=== PATIENT | female | born 1950 | race Caucasian/White ===

== ENCOUNTER 2017-02-17 08:31 | Day surgery (SDC) | payer MEDICARE ==
[2017-02-10 11:37] VITALS: BMI 27.8
[~2017-02-17 08:31] MED LIST: DEXAMETHASONE SOD PHOSPHATE 10 MG/ML 1 ML VIAL IV ONE; HEPARIN SODIUM,PORCINE 5,000 UNIT/ML 1 ML VIAL SQ ONE; LACTATED RINGERS 1,000 ML IV SCH; MIDAZOLAM 2 MG/2 ML VIAL IV PRN; ONDANSETRON 4 MG/2 ML VIAL IVP ONE; ceFAZolin IN SWFI 2 GM/20 ML SYRINGE IVP ONE
--- NOTE | 2017-02-17 09:25 | P.GSHP ---
History of Present Illness H&P Date: 02/17/17 Chief Complaint: Right upper quadrant pain The cystic C6-year-old female for from Dr. Adal Bello. Patient rents today for laparoscopic cholestatic. She's had complaints of right quadrant pain. Her recent CAT scan shows evidence of cholelithiasis. Past Medical History Past Medical History: COPD, Hypertension History of Any Multi-Drug Resistant Organisms: None Reported Past Surgical History: Hysterectomy, Orthopedic Surgery Additional Past Surgical History / Comment(s): FX L wrist repair Past Anesthesia/Blood Transfusion Reactions: No Reported Reaction Smoking Status: Current every day smoker - Past Family History Sister(s) Family Medical History: Cancer Medications and Allergies Home Medications Medication Instructions Recorded Confirmed Type Albuterol Inhaler [Ventolin Hfa 1 - 2 puff INHALATION Q6HR PRN 02/10/17 History Inhaler] Multivitamins, Thera [Multivitamin 1 tab PO DAILY 02/10/17 02/17/17 History (formulary)] amLODIPine BESYLATE [Norvasc] 5 mg PO DAILY 02/10/17 02/17/17 History Allergies Allergy/AdvReac Type Severity Reaction Status Date / Time No Known Allergies Allergy Verified 02/17/17 09:04 Surgical - Exam Vital Signs Temp Pulse Resp BP Pulse Ox 98.1 F 88 16 189/104 93 L 02/17/17 09:07 02/17/17 09:07 02/17/17 09:07 02/17/17 09:07 02/17/17 09:07 - General well developed, no distress - Eyes PERRL - ENT normal pinna - Neck no masses - Respiratory normal expansion - Cardiovascular Rhythm: regular - Abdomen Abdomen: soft, non tender Assessment and Plan Assessment: Lithiasis We will perform laparoscopic cholecystectomy.
[2017-02-17] MEDS ORDERED: ROCURONIUM BROMIDE 10 MG/ML 10 ML VIAL IV ONE (09:40)
[2017-02-17] MEDS ORDERED: GLYCOPYRROLATE 0.2 MG/ML 2 ML VIAL ONE (09:40)
[2017-02-17] MEDS ORDERED: PROPOFOL 10 MG/ML 20 ML VIAL IV ONE (09:40)
[2017-02-17] MEDS ORDERED: MIDAZOLAM 2 MG/2 ML VIAL ONE (09:40)
[2017-02-17] MEDS ORDERED: NEOSTIGMINE 1 MG/ML 10 ML VIAL ONE (09:40)
[2017-02-17] MEDS ORDERED: SUCCINYLCHOLINE CHLORIDE 100 MG/5 ML SYR IV ONE (09:40)
[2017-02-17] MEDS ORDERED: KETOROLAC 30 MG/ML 1 ML VIAL ONE (09:40)
[2017-02-17] MEDS ORDERED: fentaNYL (PF) 50 MCG/ML 2 ML AMP ONE (09:40)
[2017-02-17] MEDS ORDERED: LIDOCAINE 1% INJ 10MG/ML (20 ML MDV) ONE (09:40)
[2017-02-17] MEDS ORDERED: BUPIVACAIN-EPI 0.25%-1:200,000 30 ML VIAL SQ ONE ×2 (10:00→10:06)
--- NOTE | 2017-02-17 10:23 | P.OP ---
Date of Procedure: 02/17/17 Preoperative Diagnosis: Cholecystitis Postoperative Diagnosis: Cholecystitis Procedure(s) Performed: Laparoscopic cholecystectomy Anesthesia: CORNELIUS Surgeon: Jeromy Barahona Pathology: other (Gallbladder) Condition: stable Disposition: PACU Description of Procedure: The patient was placed on the operating table. The patient received a general endotracheal tube anesthesia. The patients abdomen was prepped and draped in the usual sterile fashion. Through an infraumbilical stab incision, the fascia of the anterior abdominal wall was grasped with a pair of Kochers and then the Veress needle was placed in the peritoneal cavity. Position of the Veress needle was confirmed with positive drop test. The abdomen was then insufflated. After adequate insufflation, the 10 mm trocar was placed in the peritoneal cavity. Following this the laparoscope was placed in the peritoneal cavity. The patient was placed in the head-up, right side up position and then a 5 mm trocar was placed in the right lateral and right subcostal position under direct visualization. A 8 mm trocar was placed in the epigastric position. The gallbladder was grasped in the fundus and infundibulum. Traction on the gallbladder was placed in the lateral and the cephalad positions. The triangle of Calot was visualized.. The cystic duct was bluntly dissected until the union of the cystic duct and common bile duct was seen. The cystic duct was then divided and sealed with the Harmonic scissors. A PDS Endoloop was then placed throughout the cystic duct stump. The cystic artery divided and sealed with the Harmonic scissors. The gallbladder was then removed from the liver bed using Harmonic scissors. The gallbladder was then extracted through the epigastric port site. Operative field was checked for any bleeding spots and Harmonic scissors was used to coagulate the liver bed. The abdomen was irrigated. The trocars were removed. The skin was closed using interrupted 3-0 Vicryl suture. Dermabond dressing were applied. The patient tolerated the procedure well.
[2017-02-17 10:48] VITALS: TEMP 97.8
[2017-02-17] MEDS: HYDROmorphone 0.5 MG/0.5 ML SYRINGE IVP PRN ×2 (10:52→10:57)
[2017-02-17 11:23] VITALS: RESP 18
[2017-02-17 11:37] VITALS: BP 147/83; PULSE 75
== END 2017-02-17 12:58 | disposition home or self-care (01) ==
LOC: OR 08:31
PROVIDERS: ATTEND Surgery
DX: K80.10 Calculus of gallbladder with chronic cholecystitis without obstruction (principal); J44.9 Chronic obstructive pulmonary disease, unspecified; I10 Essential (primary) hypertension; F17.200 Nicotine dependence, unspecified, uncomplicated; Z79.899 Other long term (current) drug therapy; Z90.710 Acquired absence of both cervix and uterus; Z80.9 Family history of malignant neoplasm, unspecified
CPT/HCPCS: 47562; J2250; J1644; J1100; J2710; J0690; J2405; J2001; J3010; J1885; J0330; J2704; J1170; 88304

== ENCOUNTER 2018-08-12 18:51 | Emergency (ER) | payer MEDICARE ==
--- NOTE | 2018-08-12 19:53 | XR ---
PROCEDURE: XR ankle complete RT - 3V DATE AND TIME: 08/12/2018 7:45 PM CLINICAL INDICATION: PHH; Pain TECHNIQUE: Department protocol COMPARISON: None FINDINGS: There is prominent soft tissue swelling at the ankle, particularly laterally. There is a posterolaterally-displaced lateral malleolar fracture, a laterally-displaced medial malleo sonya fracture, and evidence of a posterior malleolus fracture. The talus appears 6 mm laterally displaced with respect to the tibial plafond. No other findings. IMPRESSION: Trimalleolar fracture; lateral talar subluxation.
--- NOTE | 2018-08-12 19:56 | XR ---
PROCEDURE: XR foot complete RT - 3V DATE AND TIME: 08/12/2018 7:45 PM CLINICAL INDICATION: PHH; Pain TECHNIQUE: Department protocol COMPARISON: None FINDINGS: The trimalleolar fracture is redemonstrated. Examination of the forefoot and midfoot and hindfoot is negative for additional fractures or malalign ment. IMPRESSION: Trimalleolar fracture.
[2018-08-12] MEDS ORDERED: HYDROcodone/APAP 7.5-325MG 1 EACH TAB PO ONE (20:14)
--- NOTE | 2018-08-12 20:42 | ED ---
Medical Decision Making - Medical Decision Making I did review the imaging and report I did also do a [id number]-tr-[id number] evaluation the patient did discuss the findings with her as well as with Dr. Jacobs. He'll be discharged after receiving a OCL splint she'll be using a walker she'll follow-up in the office and return as needed I do agree with the assessment and plan. Disposition Clinical Impression: Trimalleolar fracture Disposition: HOME SELF-CARE Condition: Stable Instructions (If sedation given, give patient instructions): Ankle Fracture (ED) Additional Instructions: Patient to adhere to previously discussed treatment plan and will take medication(s) as directed. Patient to follow up with PCP in 1-2 days. Patient to return to ED if symptoms do not improve. Do not bear weight on right ankle. Use walker. Follow-up with orthopedic consult tomorrow. Follow up with primary care provider in 1-2 days. Return to ER if condition worsens. Prescriptions: Hydrocodone/Acetaminophen [[place] 5-325] 1 each PO Q6HR PRN #12 tab PRN Reason: Pain Is patient prescribed a controlled substance at d/c from ED?: No Referrals: Adal Humphries DO [Primary Care Provider] - 1-2 days Luis M Jacobs DO [Medical Doctor] - 1-2 days
--- NOTE | 2018-08-12 21:40 | ED ---
General Adult HPI - General Chief complaint: Extremity Injury, Lower Stated complaint: Rt ankle injury Time Seen by Provider: 08/12/18 18:58 Source: patient, EMS, RN notes reviewed, old records reviewed Mode of arrival: EMS Limitations: physical limitation - History of Present Illness Initial comments: 67-year-old female patient with no pertinent past medical history presents to ED with right ankle injury. Patient reports that she is at her house when she suffered a right ankle inversion injury stepping down one stair. Patient didn't fall but caught herself. Denies any trauma to head or neck. Denies any other injury. Patient primary complaint is right ankle pain. Patient has not been ambulatory since fall. Patient denies any other complaints. Systemic: Pt denies fatigue, fever/chills, rash. Pt denies weakness, night sweats, weight loss. Neuro: Pt denies headache, visual disturbances, syncope or pre-syncope. HEENT: Pt denies ocular discharge or irritation, otalgia, rhinorrhea, pharyngitis or notable lymphadenopathy. Cardiopulmonary: Pt denies chest pain, SOB, heart palpitations, dyspnea on exertion. Abdominal/GI: Pt denies abdominal pain, n/v/d. : Pt denies dysuria, burning w/ urination, frequency/urgency. Denies new onset urinary or bowel incontinence. MSK: Pt denies loss of strength or function in extremities. Neuro: Pt denies new onset weakness, paresthesias. - Related Data Home Medications Medication Instructions Recorded Confirmed Albuterol Inhaler [Ventolin Hfa 1 - 2 puff INHALATION Q6HR PRN 02/10/17 02/17/17 Inhaler] Multivitamins, Thera [Multivitamin 1 tab PO DAILY 02/10/17 02/17/17 (formulary)] amLODIPine BESYLATE [Norvasc] 5 mg PO DAILY 02/10/17 02/17/17 Previous Rx's Medication Instructions Recorded Docusate [Colace] 100 mg PO BID #20 capsule 02/17/17 HYDROcodone/APAP 7.5-325MG [[place] 1 each PO Q4H PRN #30 tab 02/17/17 7.5] HYDROcodone/APAP 7.5-325MG [[place] 1 each PO Q4H PRN #30 tab 02/17/17 7.5] HYDROcodone/APAP 7.5-325MG [[place] 1 each PO Q4H PRN #60 tab 02/17/17 7.5] Hydrocodone/Acetaminophen [[place] 1 each PO Q6HR PRN #12 tab 08/12/18 5-325] Allergies Allergy/AdvReac Type Severity Reaction Status Date / Time No Known Allergies Allergy Verified 08/12/18 19:00 Review of Systems ROS Statement: Those systems with pertinent positive or pertinent negative responses have been documented in the HPI. ROS Other: All systems not noted in ROS Statement are negative. Past Medical History Past Medical History: COPD, Hypertension History of Any Multi-Drug Resistant Organisms: None Reported Past Surgical History: Hysterectomy, Orthopedic Surgery Additional Past Surgical History / Comment(s): FX L wrist repair Past Anesthesia/Blood Transfusion Reactions: No Reported Reaction Past Psychological History: No Psychological Hx Reported Smoking Status: Current every day smoker Past Alcohol Use History: None Reported Past Drug Use History: Marijuana - Past Family History Sister(s) Family Medical History: Cancer General Exam - General Exam Comments Initial Comments: Constitutional: NAD, AOX3, Pt has pleasant affect. HEENT: NC/AT, trachea midline, neck supple, no lymphadenopathy. Posterior pharynx non erythematous, without exudates. External ears appear normal, without discharge. Mucous membranes moist. Eyes PERRLA, EOM intact. There is no scleral icterus. No pallor noted. Cardiopulmonary: RRR, no murmurs, rubs or gallops, no JVD noted. Lungs CTAB in anterior and posterior gallo. No peripheral edema. Abdominal exam: Abdomen soft and non-distended. Abdomen non-tender to palpation in all 4 quadrants. Bowel sounds active in LLQ. No hepatosplenomegaly. No ecchymosis Neuro: CN II-XII grossly intact. No nuchal rigidity. MSK: Right ankle tender to palpation at lateral and medial malleolus. Capillary refill less than 2 seconds. No tibia/fibula tenderness. No other areas of tenderness. Patient able to wiggle toes plantar and dorsiflex ankle. Posterior ankle splint placed. Patient neurovascularly intact after splint placement. No posterior calf tenderness bilaterally, homans sign negative bilaterally. Posterior tibialis and radial pulse +2 bilaterally. Sensation intact in upper and lower extremities. Full active ROM in upper and lower extremities, 5/5 stregnth. Limitations: physical limitation Course Vital Signs 08/12/18 08/12/18 18:53 21:57 Temperature 97.5 F L 97.8 F Pulse Rate 77 84 Respiratory 18 16 Rate Blood Pressure 149/69 128/74 O2 Sat by Pulse 92 L 93 L Oximetry Medical Decision Making - Medical Decision Making 67-year-old female patient with no pertinent past medical history presents to ED with right ankle injury. Patient reports that she is at her house when she suffered a right ankle inversion injury stepping down one stair. Patient didn't fall but caught herself. Denies any trauma to head or neck. Denies any other injury. Patient primary complaint is right ankle pain. Patient has not been ambulatory since fall. Patient denies any other complaints. Pt VSS, afebrile. Physical exam displayed: Right ankle tender to palpation at lateral and medial malleolus. Capillary refill less than 2 seconds. No tibia/fibula tenderness. No other areas of tenderness. Patient able to wiggle toes plantar and dorsiflex ankle. Posterior ankle splint placed. Patient neurovascularly intact after splint placement. Plain film of ankle display trimalleolar fracture, lateral talar subluxation. Case was discussed with attending physician Dr. Givens who reviewed images with secured entrance monitor orthopedic consult Dr. Stoll. Reccomendation of Dr. Antony to discharge patieht with splint and have her follow up in office. Patient was prescribed 3 days of [place], completed consensually. Patient will not bear weight on right ankle, will use walker. Patient will follow-up with Dr. Stoll in office. Patient will return to ER if condition worsens in any way. Disposition Clinical Impression: Trimalleolar fracture Disposition: HOME SELF-CARE Condition: Stable Instructions (If sedation given, give patient instructions): Ankle Fracture (ED) Additional Instructions: Patient to adhere to previously discussed treatment plan and will take medication(s) as directed. Patient to follow up with PCP in 1-2 days. Patient to return to ED if symptoms do not improve. Do not bear weight on right ankle. Use walker. Follow-up with orthopedic consult tomorrow. Follow up with primary care provider in 1-2 days. Return to ER if condition worsens. Prescriptions: Hydrocodone/Acetaminophen [[place] 5-325] 1 each PO Q6HR PRN #12 tab PRN Reason: Pain Is patient prescribed a controlled substance at d/c from ED?: Yes When asked, does pt state using other controlled substances?: No If prescribed controlled substance>3 days was MAPS reviewed?: Prescribed <3 Days If opioid is for acute pain is fill amount 7 days or less?: Yes If Rx opioid, was Start Talking consent form obtained?: Yes Referrals: Adal Humphries, [Primary Care Provider] - 1-2 days Luis M Jacobs DO [Medical Doctor] - 1-2 days
[2018-08-12] MEDS ORDERED: HYDROcodone/APAP 5-325MG 1 EACH TAB PO STA (21:46)
[2018-08-12 21:58] VITALS: BP 128/74; PULSE 84; RESP 16; TEMP 97.8
--- NOTE | 2018-08-13 06:41 | CDI ---
Documentation Clarification OP Dear Donato CANTU, PAC Please do addendum to ED report for missing HPI and Physical examination. Thank you, Rosendo Rjoas Line Patroller If you have any questions, please contact [employer] at [phone] [facility]
== END 2018-08-12 21:58 | disposition home or self-care (01) ==
LOC: EC 18:51
DX: S82.851A Displaced trimalleolar fracture of right lower leg, initial encounter for closed fracture (principal); J45.909 Unspecified asthma, uncomplicated; I10 Essential (primary) hypertension; F17.200 Nicotine dependence, unspecified, uncomplicated; Z79.899 Other long term (current) drug therapy; W10.9XXA Fall (on) (from) unspecified stairs and steps, initial encounter; Y92.009 Unspecified place in unspecified non-institutional (private) residence as the place of occurrence of the external cause
CPT/HCPCS: 29515; 99284

== ENCOUNTER 2018-09-01 11:00 | Day surgery (SDC) | payer MEDICARE ==
[2018-08-27 09:13] VITALS: BMI 27.3
[~2018-09-01 11:00] MED LIST changes: -HEPARIN SODIUM,PORCINE 5,000 UNIT/ML 1 ML VIAL SQ ONE; +HYDROmorphone 0.5 MG/0.5 ML SYRINGE IVP PRN; +LIDOCAINE 1% 20 ML VIAL (10MG/ML) FOR IV START INTRADERMA PRN; -MIDAZOLAM 2 MG/2 ML VIAL IV PRN
[2018-09-01] MEDS ORDERED: MIDAZOLAM (PF) 2 MG/2 ML VIAL IV ONE (14:39)
[2018-09-01] MEDS ORDERED: fentaNYL (PF) 50 MCG/ML 2 ML AMP IV ONE (14:39)
--- NOTE | 2018-09-01 14:59 | P.ANPRN ---
Procedure Note - Anesthesia - Nerve Block Performed Right Popliteal Single Date of Procedure: 09/01/18 Procedure Start Time: 14:20 Procedure Stop Time: 14:50 Location of Patient Procedure: PreOp Indication: Acute Post-Operative Pain Specifically requested for management of pain by DrChristianne: Nhan Beckwith Sedation Type: Sedate with meaningful contact maintained Preparation: Sterile Prep Position: Left Lateral Catheter: None Needle Types: Pajunk Needle Gauge: 21 Technique: Ultrasound Injectate: Other (see comment) (Bupi 0.5% with epi [id number] 15cc) Blood Aspirated: No Pain Paresthesia on Injection Noted: No Resistance on Injection: Normal Events: Uneventful and Well Tolerated Right Adductor Canal Single Date of Procedure: 09/01/18 Procedure Start Time: 14:30 Procedure Stop Time: 14:50 Location of Patient Procedure: PreOp Indication: Acute Post-Operative Pain Specifically requested for management of pain by DrChristianne: Nhan Beckwith Sedation Type: Sedate with meaningful contact maintained Preparation: Sterile Prep Position: Supine Catheter: None Needle Types: Pajunk Needle Gauge: 21 Technique: Ultrasound Injectate: Other (see comment) (Bupi 0.5% with epi [id number]) Blood Aspirated: No Pain Paresthesia on Injection Noted: No Resistance on Injection: Normal Events: Uneventful and Well Tolerated
[2018-09-01] MEDS ORDERED: LIDOCAINE 1% INJ 10MG/ML (20 ML MDV) ONE (16:44)
[2018-09-01] MEDS ORDERED: fentaNYL (PF) 50 MCG/ML 2 ML AMP ONE (16:44)
[2018-09-01] MEDS ORDERED: MIDAZOLAM 2 MG/2 ML VIAL ONE (16:44)
[2018-09-01] MEDS ORDERED: BUPIVACAIN-EPI 0.5%-1:200,000 30 ML VIAL ONE (16:44)
[2018-09-01] MEDS ORDERED: PROPOFOL 10 MG/ML 20 ML VIAL IV ONE (16:44)
--- NOTE | 2018-09-01 18:18 | P.OP ---
Date of Procedure: 09/01/18 Preoperative Diagnosis: 1. Unstable right trimalleolar ankle fracture 2. Current every day cigarette smoker Postoperative Diagnosis: Same Procedure(s) Performed: 1. Open reduction and internal fixation right lateral malleolus with syndesmotic fixation 2. Nonoperative management of right medial malleolus and posterior malleolus fracture 3. Manual application of joint stress by physician for radiography, right ankle 4. Application of short leg splint by physician, right ankle Anesthesia: CORNELIUS, regional Surgeon: Nhan Beckwith Commercial Artist #1: Ross Oneal Estimated Blood Loss (ml): 10 IV fluids (ml): 1,100 Pathology: none sent Condition: stable Disposition: PACU Indications for Procedure: The patient is a very pleasant 67-year-old female with a medical history significant for being a current every day cigarette smoker. The patient sustained a ground-level fall a little less than a month ago resulting in an unstable ankle fracture. She was initially seen in the office by one of my partners and then referred to me for definitive treatment. I met with the patient and examined her soft tissue. She was found to have tense swelling so the decision made was to delay surgery to allow for resolution of soft tissue swelling. She was placed in a well-padded bulky Jacobson splint. She will return to the office this week for evaluation of the soft tissue. There was resolution of soft tissue swelling and wrinkling of the skin. I discussed potential risks and competitions of surgery with the patient and her including but not limited to risk of anesthesia, superficial infection, deep infection, delayed wound healing, superficial wound necrosis, damage to local blood vessels or nerves, nonunion of the fracture site, malunion of the fracture site, malreduction of the ankle mortise, failure of ankle hardware, symptomatic hardware, chronic pain, chronic swelling, posttraumatic arthritis, DVT, PE, other medical complications, dissatisfaction with surgery, an inability to regain preinjury level of function, and possibly loss of life or limb. We discussed the role the cigarette smoking place and that she is at a higher risk of having a complication due to her cigarette smoking. She voiced her understanding of all these potential complications and also Tinel's at other less common complications are possible. She provided her verbal and written consent to go forward with surgery. Operative Findings: Prior to surgery fluoroscopy was brought in to take images of the right ankle. The talus was laterally subluxed out of the ankle mortise with widening of the medial clear space. During surgery the fibula fracture was found to have early healing which had to be taken down. The patient's bone quality was extremely poor. The medial malleolus fracture fragment appeared very small and minimally displaced after fixation of the fibula so the decision was made to treat this nonoperatively due to the patient's poor bone quality and history of cigarette smoking. Description of Procedure: The patient was identified in preoperative holding and I discussed the surgical plan with the patient and her . All their questions were answered. A popliteal and saphenous nerve block was placed by anesthesia. The patient was then brought back to the operating room. She was positioned on the OR table where a general anesthetic and preoperative antibiotics were given. A tourniquet was applied around the proximal aspect of the right thigh. A bump was placed in the right buttock internally rotating to neutral. All bony prominences were well-padded. The right leg was then prepped and draped in standard sterile fashion. Prior to starting surgery timeout was performed identifying the correct patient, operative extremity, and procedure. The patient's leg was then elevated, exsanguinated with an Esmarch bandage, the tourniquet was inflated to 250 mmHg. I began by outlining a longitudinal incision over the distal fibula. Skin incision was made with a scalpel and dissection was carried down carefully through subcutaneous tissue with tenotomy scissors. A branch of the superficial peroneal nerve was identified proximally and carefully retracted. The fascia over the peroneal muscles was incised proximally and the periosteum over the distal fibula was incised distally. The fracture was exposed. On inspection the fracture site there was early callus formation which was taken down. The fracture site was gently opened up. There was comminution anteriorly which prevented placement of a lag screw. The patient's bone quality was also found to be very poor. Once the fracture was adequately dissected free I attempted a reduction with yjaqi-od-uqovf reduction clamps. Due to the patient's poor bone quality the quqab-lo-krckl reduction clamps began fracturing the fibula. At this point I pulled longitudinal traction on the distal fibular fracture with a aekgn-fu-eymbr reduction clamp and verified reduction of the ankle mortise and that the fibula was out to length with fluoroscopy. Once the ankle mortise was reduced and the fibula was out to length 0.0625 K wires were placed anteriorly and posteriorly in the distal fibular fragment and into the talus holding the reduction. Proximally the fragment of bone from the distal fragment was keyed in to the proximal shaft and held gently with a dwlxx-dm-odiks reduction clamp. Fluoroscopy was again used to verify that the fibula was out to length and the ankle mortise was reduced. I then contoured a titanium distal fibular plate over the distal fibula. A nonlocking 3.5 mm screw was placed just proximal to the fracture bringing the plate down to bone. Distally the plate was centered and proximally the plate was sitting slightly anterior. I then placed an additional 2 nonlocking 3.5 mm screws proximally. Attention was then turned distally. A nonlocking 3.5 mm screw was placed through one of the distal clusters to bring the plate down to bone. I then placed locking 3.5 mm screws and exchanged the initial nonlocking 3.5 mm screw with another locking screw. Fluoroscopy was brought in and the fibular reduction was maintained. The fibula appeared to be out to length and the talus was reduced and the ankle mortise. Due to the patient's very poor bone quality I elected to place a single tetra cortical 4.0 mm syndesmotic screw for additional fixation. After this was placed final fluoroscopic images were taken. The mortise view showed the talus centered under the tibial plafond and the fibula out to length. The medial malleolus fragment appeared very minimally displaced. At this point I elected to not surgically addressed the medial malleolus fracture fragment as it was very small and minimally displaced. I also thought the added surgical morbidity of a second incision was not worth placing a screw across the small medial malleolus fracture fragment. A lateral view was taken and the talus appeared centered in the tibial plafond. The lateral wound was then copiously irrigated and closed in layers with 0 Vicryl for the fascial layer with 2-0 Vicryl for the deep subcu, and 3-0 nylon Allgower modification of the Donati stitch for skin. A sterile dressing was applied. The dressing was overwrapped with sterile web roll. The tourniquet was let down and a well-padded bulky Jacobson splint was placed with the ankle at neutral. The patient was then awoken from her anesthetic, transferred to a gurney, and brought to the recovery room having tolerated the procedure well. Ross Oneal PA-C was required as a skilled bakery assistant for patient positioning, surgical exposure, retraction, reduction of fracture, placement of hardware, application of splint, and closure of wound. Plan: The patient is going to discharge home as an outpatient. She is to remain strictly nonweightbearing on her operative extremity. She is to leave her bulky Jacobson splint on at all times. She'll be given Percocet for pain control. She was advised to take a stool softener to help prevent constipation. She'll be treated with aspirin 325 mg twice daily for DVT prophylaxis. I strongly encouraged the patient to quit smoking to enhance her healing process. She will follow-up in 2 weeks for splint removal, nonweightbearing x-rays of the ankle, and a wound evaluation. I'd also like to check her 25-hydroxy vitamin D level due to her poor bone quality
[2018-09-01] MEDS ORDERED: LACTATED RINGERS 1,000 ML IV ONE (18:34)
[2018-09-01 18:58] VITALS: RESP 18; TEMP 98
[2018-09-01 19:41] VITALS: BP 138/78; PULSE 86
--- NOTE | 2018-09-02 07:07 | FL ---
EXAMINATION TYPE: FL guidance operating room DATE OF EXAM: 09/01/2018 HISTORY: Flouroscopy time 66 seconds of fluoroscopy provided. IMPRESSION: 1. Fluoroscopy time.
--- NOTE | 2018-09-02 07:13 | XR ---
EXAMINATION TYPE: XR ankle complete RT DATE OF EXAM: 09/01/2018 COMPARISON: NONE HISTORY: ORIF TECHNIQUE: 2 views submitted FINDINGS: Postsurgical change in near-anatomic alignment. IMPRESSION: Postsurgical change
== END 2018-09-01 19:47 | disposition home or self-care (01) ==
LOC: OR 11:00
PROVIDERS: ATTEND Orthopaedic Surgery
DX: S82.851A Displaced trimalleolar fracture of right lower leg, initial encounter for closed fracture (principal); W10.9XXA Fall (on) (from) unspecified stairs and steps, initial encounter; I10 Essential (primary) hypertension; H40.9 Unspecified glaucoma; Z85.118 Personal history of other malignant neoplasm of bronchus and lung; F17.210 Nicotine dependence, cigarettes, uncomplicated; J44.9 Chronic obstructive pulmonary disease, unspecified; K21.9 Gastro-esophageal reflux disease without esophagitis; Z79.891 Long term (current) use of opiate analgesic; Z79.899 Other long term (current) drug therapy
CPT/HCPCS: 27792; 64447; 64445; 73610; C1713; J2250 ×2; J1100; J2405; J2001; J3010; J2704; 93005

== ENCOUNTER → 2019-02-14 | Outpatient (CLI) | payer MEDICARE ==
--- NOTE | 2019-02-14 15:40 | XR ---
EXAMINATION TYPE: XR chest 2V DATE OF EXAM: 02/14/2019 COMPARISON: None INDICATION: Cough TECHNIQUE: Frontal and lateral views of the chest are obtained. FINDINGS: The heart size is normal. The pulmonary vasculature is normal. The lungs are clear. IMPRESSION: 1. No acute pulmonary process.
== END ==
LOC: RADXRMAIN 15:25
PROVIDERS: ATTEND Nurse Practitioner Family
DX: R05 Cough (principal)
CPT/HCPCS: 71046

== ENCOUNTER 2019-11-01 17:07 | Inpatient (IN) | payer MEDICARE ==
[2019-11-01] MEDS ORDERED: IPRATROPIUM-ALBUTEROL 3 ML NEB INHALATION STA (17:33)
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
[2019-11-01 18:02] LABS: Basophils # (A) 0.1 k/uL (0-0.2); Basophils % (A) 1 %; Eosinophils # (A) 0.1 k/uL (0-0.7); Eosinophils % (A) 1 %; HCT 54.2 % (34.0-46.0); HGB 17.4 gm/dL (11.4-16.0); Lymphocytes # (A) 1.7 k/uL (1.0-4.8); Lymphocytes % (A) 16 %; MCH 31.5 pg (25.0-35.0); MCHC 32.1 g/dL (31.0-37.0); Mean Platelet Volume 8.5; Monocytes # (A) 0.4 k/uL (0-1.0); Monocytes % (A) 3 %; Neutrophils # (A) 8.6 k/uL (1.3-7.7); Neutrophils % (A) 78 %; Platelet Count 186 k/uL (150-450); RBC 5.53 m/uL (3.80-5.40); RDW 14.5 % (11.5-15.5)
[2019-11-01 18:13] LABS: ALT 18 U/L (4-34); AST 24 U/L (14-36); African American GFR (CKD) >90 (>60 ml/min/1.73 sqM); Alkaline Phosphatase 76 U/L (38-126); Anion Gap 8 mmol/L; Blood Urea Nitrogen 17 mg/dL (7-17); Calcium 9.8 mg/dL (8.4-10.2); Carbon Dioxide 26 mmol/L (22-30); Chloride 100 mmol/L (98-107); Glucose 126 mg/dL (74-99); Magnesium 1.6 mg/dL (1.6-2.3); Non-African American GFR(CKD) >90 (>60 ml/min/1.73 sqM); Potassium 4.1 mmol/L (3.5-5.1); Sodium 134 mmol/L (137-145); Total Bilirubin 0.5 mg/dL (0.2-1.3); Total Protein 6.4 g/dL (6.3-8.2)
[2019-11-01 18:23] LABS: Partial Thromboplastin Time 21.9 sec (22.0-30.0)
--- NOTE | 2019-11-01 18:35 | XR ---
EXAMINATION TYPE: XR chest 2V DATE OF EXAM: 11/01/2019 COMPARISON: Prior chest x-ray 02/14/2019 HISTORY: Difficulty breathing, right-sided chest pain and shortness of breath TECHNIQUE: Frontal and lateral views of the chest are obtained. FINDINGS: There is no focal air space opacity, pleural effusion, or pneumothorax seen. The cardiac silhouette size is within normal limits. The aorta is dense. There are overlying cardiac leads. Promi nent lung volumes suggest underlying COPD. The osseous structures are intact. IMPRESSION: No acute cardiopulmonary process.
[2019-11-01] MEDS ORDERED: MORPHINE SULFATE 4 MG/ML SYRINGE IVP STA (19:36)
--- NOTE | 2019-11-01 20:35 | CT ---
EXAMINATION TYPE: CT abdomen pelvis w con DATE OF EXAM: 11/01/2019 COMPARISON: CT abdomen dated 01/23/2017 HISTORY: abdominal pain CT DLP: 541.9 mGycm Automated exposure control for dose reduction was used. TECHNIQUE: Helical acquisition of images from the lung bases through the pelvis have been completed. CONTRAST: Performed without Oral Contrast and with IV Contrast, patient injected with 100 mL of Isovue 300. FINDINGS: 11 LUNG BASES: No significant abnormality is appreciated. AORTA: No significant abnormality is appreciated. LIVER/GB: There is a dense focus present within the common bile duct measuring approximately 1 cm in size, increased compared to prior exam common bile duct, intrahepatic biliary ducts are dilated, ther e is inflammatory change in the portal region and peripancreatic location. Gallbladder is absent. Telma pect some portal adenopathy. PANCREAS: No significant abnormality is seen. SPLEEN: No significant abnormality is seen. ADRENALS: No significant abnormality is seen. KIDNEYS: There is a left pelvic kidney present somewhat misshapen. REPRODUCTIVE ORGANS: Not 0seen BOWEL: No significant abnormality is seen. FREE AIR: No Free Air visible. ASCITES: None visible. PELVIC ADENOPATHY: None visualized. RETROPERITONEAL ADENOPATHY: No Retroperitoneal Adenopathy visible. URINARY BLADDER: No significant abnormality is seen. OSSEOUS STRUCTURES: Degenerative disc changes are present in the visualized lumbar weami881. IMPRESSION: CHOLEDOCHOLITHIASIS, PANCREATITIS. PTOTIC LEFT KIDNEY
[2019-11-01] MEDS ORDERED: ONDANSETRON 4 MG/2 ML VIAL IVP STA (21:10)
[2019-11-01] MEDS ORDERED: HYDROmorphone 1 MG/ML 1 ML SYRINGE IVP STA (21:10)
[2019-11-01] MEDS: SODIUM CHLORIDE 0.9% 1,000 ML IV ONE (21:21)
[2019-11-01] MEDS ORDERED: AMPICILLIN-SULBACTAM 3 GM in SODIUM CHLORIDE 0.9% 100 ML IVPB STA (21:34)
--- NOTE | 2019-11-01 22:08 | US ---
EXAMINATION TYPE: US abdomen limited DATE OF EXAM: 11/01/2019 COMPARISON: CT CLINICAL HISTORY: abdominal pain. Abdominal pain x couple months. Hx cholecystectomy. EXAM MEASUREMENTS: Liver Length: 14.8 cm Gallbladder Wall: Cholecystectomy CBD: 1.64 cm Right Kidney: 10.3 x 4.9 x 5.7 cm Patient gassy. Pancreas: No abnormalities seen at this time. CBD appears slightly dilated in pancreas images. Liver: Appears slightly coarse Evidence for sonographic Gore's sign: No CBD: Appears slightly dilated status post-cholecystectomy. Hyperechoic area with posterior shadowing seen within the CBD measurin.1 x 1.1 x 0.7 cm. Right Kidney: No hydronephrosis or masses seen. Limited due to gas. IMPRESSION: Large common bile duct measures 16 mm with gallstones. There is evidence of choledocholit hiasis.
[2019-11-01] MEDS: ONDANSETRON 4 MG/2 ML VIAL IVP PRN (22:46)
[2019-11-02] MEDS: HYDROmorphone 1 MG/ML 1 ML SYRINGE IVP PRN ×5 (00:40→21:22)
[2019-11-02] MEDS: AMPICILLIN-SULBACTAM 3 GM in SODIUM CHLORIDE 0.9% 100 ML IVPB SCH ×4 (04:15→21:25)
[2019-11-02] MEDS: ONDANSETRON 4 MG/2 ML VIAL IVP PRN ×3 (04:35→16:25)
[2019-11-02 08:19] LABS: ALT 26 U/L (4-34); AST 38 U/L (14-36); African American GFR (CKD) >90 (>60 ml/min/1.73 sqM); Albumin 3.6 g/dL (3.5-5.0); Alkaline Phosphatase 73 U/L (38-126); Anion Gap 4 mmol/L; Blood Urea Nitrogen 18 mg/dL (7-17); Calcium 8.7 mg/dL (8.4-10.2); Carbon Dioxide 30 mmol/L (22-30); Chloride 103 mmol/L (98-107); Glucose 106 mg/dL (74-99); Non-African American GFR(CKD) >90 (>60 ml/min/1.73 sqM); Sodium 137 mmol/L (137-145); Total Bilirubin 0.6 mg/dL (0.2-1.3); Total Protein 5.7 g/dL (6.3-8.2)
[2019-11-02] MEDS: PANTOPRAZOLE 40 MG/10 ML VIAL IVP SCH (08:57)
[2019-11-02 09:22] LABS: Basophils % (A) 0 %; Eosinophils % (A) 0 %; HGB 16.3 gm/dL (11.4-16.0); Hypochromasia Slight; Lymphocytes # (A) 0.9 k/uL (1.0-4.8); Lymphocytes % (A) 7 %; MCH 31.4 pg (25.0-35.0); MCHC 30.8 g/dL (31.0-37.0); MCV 102.1 fL (80.0-100.0); Macrocytosis Slight; Monocytes # (A) 0.3 k/uL (0-1.0); Monocytes % (A) 3 %; Neutrophils # (A) 11.2 k/uL (1.3-7.7); Neutrophils % (A) 89 %; Platelet Count 158 k/uL (150-450); RBC 5.19 m/uL (3.80-5.40); RDW 14.5 % (11.5-15.5); WBC 12.6 k/uL (3.8-10.6)
[2019-11-02] MEDS ORDERED: INDOMETHACIN 50MG SUPPOSITORY RECTAL ONE (12:30)
[2019-11-02] MEDS ORDERED: IV FLUID CONTINUATION 1,000 ML IV ONE (13:29)
[2019-11-02] MEDS ORDERED: PROPOFOL 10 MG/ML 20 ML VIAL IV ONE (13:55)
[2019-11-02] MEDS ORDERED: SUCCINYLCHOLINE CHLORIDE 100 MG/5 ML SYR IV ONE (13:55)
[2019-11-02] MEDS ORDERED: GLYCOPYRROLATE 0.2 MG/ML 2 ML VIAL ONE (13:55)
[2019-11-02] MEDS ORDERED: LIDOCAINE 1% INJ 10MG/ML (20 ML MDV) ONE (13:55)
[2019-11-02] MEDS ORDERED: ONDANSETRON 4 MG/2 ML VIAL ONE (13:55)
[2019-11-02] MEDS ORDERED: fentaNYL (PF) 50 MCG/ML 2 ML AMP ONE (13:55)
[2019-11-02] MEDS ORDERED: MIDAZOLAM 2 MG/2 ML VIAL ONE (13:55)
[2019-11-02] MEDS ORDERED: PHENYLEPHRINE-0.9% NACL SYG 1 MG/10 ML SYRINGE ONE (13:55)
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
[2019-11-02] MEDS ORDERED: IOPAMIDOL-300 50ML BTL MISCELLANE ONE (14:15)
[2019-11-02] MEDS ORDERED: SODIUM CHLORIDE 0.9% 500 ML 500 ML IV ONE (14:45)
--- NOTE | 2019-11-02 15:31 | P.PCN ---
Date of Procedure: 11/02/19 Description of Procedure: Brief history: Patient is a 69-year-old female presenting to the hospital with severe abdominal pain worsening over the past few days. Patient has known history of cholecystectomy in 2017. Bilirubin normal on presentation however imaging with ultrasound and computed tomography scan showed a large CBD stone. Lipase markedly elevated at 8580, patient currently being treated for gallstone pancreatitis. Plan is for ERCP for treatment of choledocholithiasis [facility]. Procedure performed: ERCP with sphincterotomy, cholangiogram, balloon sweep of the bile duct and biliary stent placement. Preoperative diagnoses: Gallstone pancreatitis, choledocholithiasis, abdominal pain IV sedation per anesthesia: Estimated blood loss: Minimal. Procedure: After informed consent was obtained from the patient and after the risks benefits and complications including bleeding perforation and pancreatitis explained in detail the patient was brought into the endoscopy unit. The patient was placed in prone position and IV conscious sedation was administered by anesthesia under continuous monitoring. The Olympus side-viewing duodenoscope was then inserted into the mouth and esophagus intubated without any difficulty. The scope was gradually advanced into the stomach and duodenum. The major papilla was identified without any difficulty. The ampulla appeared to be somewhat prominent. A sphincterotome was used to cannulate the papilla and a guidewire was passed through the common bile duct into the common hepatic duct. Cholangiogram was then performed and significant for markedly dilated common bile duct with a 1.5 cm filling defect consistent with CBD stone noted. An 8 mm sphinctero was then performed. The sphincterotome was then exchanged over the guidewire for a balloon extractor. Numerous attempts to remove the stone from the duct were unsuccessful and the sphincterotome was then exchanged back in the sphincterotomy was extended an additional 3 mm to total of 11 mm. The balloon extractor was then again exchanged for the think it over the guidewire. Multiple attempts to sweep the duct with different sizes of balloon extractors 8, 11.5 and 15 mm was unsuccessful. At this time a 7 cm x 7-[place] double pigtail plastic biliary was inserted into the duct. Good bile drainage was noted. The pancreatic duct was not cannulated or injected. The patient tolerated the procedure well. Impression: ERCP with cholangiogram, sphincterotomy, unsuccessful balloon extraction of a CBD stone and insertion of a plastic double pigtail stent Recommendations: The findings of this examination were discussed with the patient as well as her family. Nothing by mouth. Continue IV fluid hydration and pain control. Continue to monitor CBC, BMP and LFTs. Patient will likely need referral after discharge to a tertiary center for evaluation by advanced endoscopy for treatment of choledocholithiasis.
[2019-11-02] MEDS ORDERED: HYDROmorphone 1 MG/ML 1 ML SYRINGE IVP ONE ×2 (15:37→15:45)
--- NOTE | 2019-11-02 16:08 | FL ---
EXAMINATION TYPE: FL ERCP DATE OF EXAM: 11/02/2019 FLUOROSCOPY Fluoroscopy time of 18 seconds was used during ERCP for common bile duct stone intervention and stent placement. 5 image/s document/s the procedure.
[2019-11-02] MEDS: SODIUM CHLORIDE 0.9% 1,000 ML IV ONE (17:52)
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
[2019-11-02] MEDS: LACTATED RINGERS 1,000 ML IV SCH (23:25)
[2019-11-03] MEDS: ONDANSETRON 4 MG/2 ML VIAL IVP PRN ×3 (00:35→21:35)
[2019-11-03] MEDS: KETOROLAC 15 MG/ML 1 ML VIAL IVP PRN ×2 (00:38→10:49)
[2019-11-03] MEDS: HYDROmorphone 1 MG/ML 1 ML SYRINGE IVP PRN (02:13)
[2019-11-03] MEDS: AMPICILLIN-SULBACTAM 3 GM in SODIUM CHLORIDE 0.9% 100 ML IVPB SCH ×4 (03:54→21:36)
[2019-11-03] MEDS: LACTATED RINGERS 1,000 ML IV SCH ×2 (05:18→12:18)
[2019-11-03] MEDS: PANTOPRAZOLE 40 MG/10 ML VIAL IVP SCH (07:37)
[2019-11-03 09:29] LABS: ALT 33 U/L (4-34); AST 43 U/L (14-36); African American GFR (CKD) >90 (>60 ml/min/1.73 sqM); Albumin 3.1 g/dL (3.5-5.0); Alkaline Phosphatase 68 U/L (38-126); Anion Gap 5 mmol/L; Blood Urea Nitrogen 11 mg/dL (7-17); Calcium 7.8 mg/dL (8.4-10.2); Carbon Dioxide 29 mmol/L (22-30); Chloride 101 mmol/L (98-107); Glucose 75 mg/dL (74-99); Non-African American GFR(CKD) >90 (>60 ml/min/1.73 sqM); Potassium 3.8 mmol/L (3.5-5.1); Sodium 135 mmol/L (137-145); Total Bilirubin 0.5 mg/dL (0.2-1.3); Total Protein 5.1 g/dL (6.3-8.2)
[2019-11-03 09:43] LABS: Basophils # (A) 0.1 k/uL (0-0.2); Basophils % (A) 0 %; Eosinophils % (A) 0 %; HCT 47.1 % (34.0-46.0); HGB 14.6 gm/dL (11.4-16.0); Hypochromasia Slight; Lymphocytes # (A) 0.9 k/uL (1.0-4.8); Lymphocytes % (A) 8 %; MCH 31.5 pg (25.0-35.0); MCV 101.6 fL (80.0-100.0); Macrocytosis Slight; Mean Platelet Volume 8.8; Monocytes # (A) 0.4 k/uL (0-1.0); Monocytes % (A) 3 %; Neutrophils % (A) 88 %; Platelet Count 136 k/uL (150-450); RBC 4.64 m/uL (3.80-5.40); RDW 14.4 % (11.5-15.5); WBC 12.5 k/uL (3.8-10.6)
[2019-11-03] MEDS: HYDROmorphone 0.5 MG/0.5 ML SYRINGE IVP PRN ×2 (12:22→16:39)
--- NOTE | 2019-11-03 15:27 | P.PN ---
Subjective Progress Note Date: 11/03/19 CHIEF COMPLAINT: Pancreatitis HISTORY OF PRESENT ILLNESS: Patient is status post ERCP with sphincterotomy, unsuccessful balloon extraction of a CBD stone and insertion of stent. Patient still reports some abdominal pain with nausea and vomiting. Patient still reporting abdominal pain with nausea and vomiting. WBC 12.5, AST 43 ALT 33 lipase 1722 PHYSICAL EXAM: VITAL SIGNS: Reviewed. GENERAL: Well-developed in no acute distress. HEENT: No sclera icterus. Extraocular movements grossly intact. Moist buccal mucosa. Head is atraumatic, normocephalic. ABDOMEN: Soft. Nondistended. Nontender. NEUROLOGIC: Alert and oriented. Cranial nerves II through XII grossly intact. ASSESSMENT: 1. Acute gallstone pancreatitis 2. Acute cholelithiasis 3. Cholelithiasis PLAN: -GI service recommending that patient will need referral after discharge to a tertiary center for evaluation by advanced endoscopy for treatment of choledocholithiasis -We'll add Dilaudid 0.5 mg every 4 hours as needed for pain -Advance diet to clear liquid diet -Continue with IV fluid hydration Physician Marketing Operations Specialist note has been reviewed by physician. Signing provider agrees with the documented findings, assessment, and plan of care. Objective - Vital Signs Vital signs: Vital Signs Temp 97.9 F 11/03/19 13:32 Pulse 80 11/03/19 13:32 Resp 17 11/03/19 13:32 BP 128/69 11/03/19 13:32 Pulse Ox 95 11/03/19 13:32 Intake & Output 11/02/19 11/03/19 11/03/19 18:59 06:59 18:59 Intake Total 1450 480 Balance 1450 480 Weight 68.039 kg Intake: IV 600 Intake, IV Titration 850 Amount Ampicillin-Sulbactam 3 gm 100 In Sodium Chloride 0.9% 100 ml @ 200 mls/hr IVPB Q6H [facility] Rx#:[id number] Sodium Chloride 0.9% 1, 750 000 ml @ 100 mls/hr IV . Q10H [facility] Rx#:[id number] Oral 480 Other: Voiding Method Toilet # Voids 2 3 - Labs CBC & Chem 7: 11/03/19 08:12 11/03/19 08:12 Labs: Abnormal Lab Results - Last 24 Hours (Table) 11/03/19 11/03/19 Range/Units 08:12 08:12 WBC 12.5 H (3.8-10.6) k/uL Hct 47.1 H (34.0-46.0) % MCV 101.6 H (80.0-100.0) fL Plt Count 136 L (150-450) k/uL Neutrophils # 11.0 H (1.3-7.7) k/uL Lymphocytes # 0.9 L (1.0-4.8) k/uL Sodium 135 L (137-145) mmol/L Creatinine 0.39 L (0.52-1.04) mg/dL Calcium 7.8 L (8.4-10.2) mg/dL AST 43 H (14-36) U/L Total Protein 5.1 L (6.3-8.2) g/dL Albumin 3.1 L (3.5-5.0) g/dL Lipase 1722 H (23-300) U/L
[2019-11-03] MEDS: ACETAMINOPHEN TAB 325 MG TAB PO PRN (21:35)
--- NOTE | 2019-11-03 22:39 | P.PN ---
Subjective Progress Note Date: 11/03/19 Principal diagnosis: Abdominal pain, choledocholithiasis, gallstone pancreatitis Patient is seen lying in bed still reporting abdominal pain, although improved from previous evaluation yesterday. Objective - Vital Signs Vital signs: Vital Signs Temp 98.4 F 11/03/19 04:51 Pulse 103 H 11/03/19 04:51 Resp 18 11/03/19 04:51 BP 123/65 11/03/19 04:51 Pulse Ox 94 L 11/03/19 07:40 Intake & Output 11/02/19 11/03/19 11/03/19 18:59 06:59 18:59 Intake Total 1450 Balance 1450 Weight 68.039 kg Intake: IV 600 Intake, IV Titration 850 Amount Ampicillin-Sulbactam 3 gm 100 In Sodium Chloride 0.9% 100 ml @ 200 mls/hr IVPB Q6H [facility] Rx#:[id number] Sodium Chloride 0.9% 1, 750 000 ml @ 100 mls/hr IV . Q10H [facility] Rx#:[id number] Other: Voiding Method Toilet # Voids 2 - Exam On physical examination, patient appears comfortable in no apparent distress. HEAD: Normocephalic, atraumatic. EYES: No scleral icterus. No conjunctival injection. MOUTH: No lesions, tongue midline. NECK: Trachea midline, no gross abnormalities. ABDOMEN: Soft, mildly tender to palpation. Bowel sounds are positive. No organomegaly. No guarding or rigidity. EXTREMITIES: No pedal edema. SKIN: No rashes, no jaundice. NEUROLOGIC: Alert and oriented x3. No focal deficits. - Labs CBC & Chem 7: 11/03/19 08:12 11/03/19 08:12 Labs: Abnormal Lab Results - Last 24 Hours (Table) 11/03/19 11/03/19 Range/Units 08:12 08:12 WBC 12.5 H (3.8-10.6) k/uL Hct 47.1 H (34.0-46.0) % MCV 101.6 H (80.0-100.0) fL Plt Count 136 L (150-450) k/uL Neutrophils # 11.0 H (1.3-7.7) k/uL Lymphocytes # 0.9 L (1.0-4.8) k/uL Sodium 135 L (137-145) mmol/L Creatinine 0.39 L (0.52-1.04) mg/dL Calcium 7.8 L (8.4-10.2) mg/dL AST 43 H (14-36) U/L Total Protein 5.1 L (6.3-8.2) g/dL Albumin 3.1 L (3.5-5.0) g/dL Lipase 1722 H (23-300) U/L Assessment and Plan (1) Choledocholithiasis Narrative/Plan: 69-year-old female status post cholecystectomy in 2017 who presented to the hospital with severe abdominal pain. Found to have elevation in lipase and CT findings consistent with acute pancreatitis with choledocholithiasis noted on computed tomography scan and a markedly dilated CBD. Patient currently being treated for gallstone pancreatitis. The patient was taken for ERCP with findings of diffuse CBD dilation with filling defects the patient underwent sphincterotomy with unsuccessful balloon sweep due to a large obstructing CBD stone, stent placement was performed with a double pigtail plastic biliary stent with good bile drainage after the procedure. Current Visit: Yes Status: Acute Code(s): K80.50 - CALCULUS OF BILE DUCT W/O CHOLANGITIS OR CHOLECYST W/O OBST SNOMED Code(s): 932995591 (2) Acute gallstone pancreatitis Current Visit: Yes Status: Acute Code(s): K85.10 - BILIARY ACUTE PANCREATITIS WITHOUT NECROSIS OR INFECTION SNOMED Code(s): 789934113 (3) Abdominal pain Current Visit: Yes Status: Acute Code(s): R10.9 - UNSPECIFIED ABDOMINAL PAIN SNOMED Code(s): 57689322 Plan: Supportive care Okay for liquids Continue to monitor CBC, BMP, LFTs Computed tomography scan significant for choledocholithiasis, and the patient was taken for ERCP with sphincterotomy and biliary stent placement due to a large CBD stone which was unable to be removed from the bile duct Extensive discussion both yesterday with the patient, the patient's , and then both of them together as well as the patient again today of the findings of the ERCP, the treatment which was provided in the need for follow-up with advanced endoscopy for repeat ERCP to be performed 6-8 weeks after discharge, the patient conveyed understanding with all of her questions answered to her satisfaction Lactated Ringer's ordered Continue pain control Thank you for allowing us to participate in the care of the patient we will continue to follow
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
--- NOTE | 2019-11-03 23:40 | P.PN ---
Subjective Progress Note Date: 11/03/19 patient still attempted ERCP results was failed to dislodge, bile duct stone. a stent was placed. however patient remains in pain midepigastric through to the back consistent with her pancreatitis. Objective - Vital Signs Vital signs: Vital Signs Temp 98.5 F 11/03/19 19:38 Pulse 110 H 11/03/19 19:38 Resp 20 11/03/19 19:38 BP 145/65 11/03/19 19:38 Pulse Ox 96 11/03/19 19:38 Intake & Output 11/03/19 11/03/19 11/04/19 06:59 18:59 06:59 Intake Total 480 Balance 480 Intake: Oral 480 Other: Voiding Method Toilet # Voids 2 3 2 - Exam GENERAL: This is a 69-year-old in apparent distress at the time of examination. HEENT: Head is atraumatic, normocephalic. Pupils are equal, round, and reactive to light. Sclerae anicteric. Conjunctivae are clear. Mucus membranes of the mouth are moist. Neck is supple. RESPIRATORY: Clear to auscultation. No wheezes, rales, or rhonchi. CARDIOVASCULAR: Regular rate and rhythm. S1 and S2 noted. No systolic or diastolic murmur auscultated. No JVD noted. No S3 or S4 noted. GASTROINTESTINAL: Abdomen soft and round. Normal active bowel sounds auscultated x 4 quadrants. pain or tenderness noted upon palpation. INTEGUMENTARY: No cyanosis. No jaundice. No rashes noted. No cellulitis noted. EXTREMITIES: 2+ peripheral pulses. No evidence of peripheral edema. No calf tenderness noted. NEUROLOGIC: Cranial nerves II-XII intact. PSYCHIATRIC: Awake, alert, and oriented X 3. Appropriate affect. Intact judgement and insight. - Labs CBC & Chem 7: 11/03/19 08:12 11/03/19 08:12 Labs: Abnormal Lab Results - Last 24 Hours (Table) 11/03/19 11/03/19 Range/Units 08:12 08:12 WBC 12.5 H (3.8-10.6) k/uL Hct 47.1 H (34.0-46.0) % MCV 101.6 H (80.0-100.0) fL Plt Count 136 L (150-450) k/uL Neutrophils # 11.0 H (1.3-7.7) k/uL Lymphocytes # 0.9 L (1.0-4.8) k/uL Sodium 135 L (137-145) mmol/L Creatinine 0.39 L (0.52-1.04) mg/dL Calcium 7.8 L (8.4-10.2) mg/dL AST 43 H (14-36) U/L Total Protein 5.1 L (6.3-8.2) g/dL Albumin 3.1 L (3.5-5.0) g/dL Lipase 1722 H (23-300) U/L Assessment and Plan (1) Abdominal pain Current Visit: Yes Status: Acute Code(s): R10.9 - UNSPECIFIED ABDOMINAL PAIN SNOMED Code(s): 06271875 (2) Acute exacerbation of chronic obstructive pulmonary disease Current Visit: Yes Status: Acute Code(s): J44.1 - CHRONIC OBSTRUCTIVE PULMONARY DISEASE W (ACUTE) EXACERBATION SNOMED Code(s): 817541016 (3) Acute gallstone pancreatitis Current Visit: Yes Status: Acute Code(s): K85.10 - BILIARY ACUTE PANCREATITIS WITHOUT NECROSIS OR INFECTION SNOMED Code(s): 669978559 (4) Acute pancreatitis Current Visit: Yes Status: Acute Code(s): K85.90 - ACUTE PANCREATITIS WITHOUT NECROSIS OR INFECTION, UNSP SNOMED Code(s): 995702072 (5) Choledocholithiasis Current Visit: Yes Status: Acute Code(s): K80.50 - CALCULUS OF BILE DUCT W/O CHOLANGITIS OR CHOLECYST W/O OBST SNOMED Code(s): 305201309 Plan: we will gian to discuss with GI and surgery regarding planned to extract the common bile duct stone to give her pain relief. She may need referral to tertiary center like [facility]
[2019-11-04] MEDS: HYDROmorphone 0.5 MG/0.5 ML SYRINGE IVP PRN ×5 (03:21→23:09)
[2019-11-04] MEDS: AMPICILLIN-SULBACTAM 3 GM in SODIUM CHLORIDE 0.9% 100 ML IVPB SCH ×4 (04:28→23:09)
[2019-11-04] MEDS: ACETAMINOPHEN TAB 325 MG TAB PO PRN (06:02)
[2019-11-04] MEDS: LACTATED RINGERS 1,000 ML IV SCH ×3 (07:08→16:29)
[2019-11-04] MEDS: HEPARIN SODIUM,PORCINE 5,000 UNIT/ML 1 ML VIAL SQ SCH ×2 (08:34→23:09)
[2019-11-04] MEDS: PANTOPRAZOLE 40 MG/10 ML VIAL IVP SCH (08:59)
[2019-11-04 09:08] LABS: ALT 33 U/L (4-34); AST 38 U/L (14-36); African American GFR (CKD) >90 (>60 ml/min/1.73 sqM); Albumin 2.8 g/dL (3.5-5.0); Alkaline Phosphatase 95 U/L (38-126); Anion Gap 7 mmol/L; Blood Urea Nitrogen 3 mg/dL (7-17); Calcium 8.3 mg/dL (8.4-10.2); Carbon Dioxide 31 mmol/L (22-30); Chloride 99 mmol/L (98-107); Glucose 76 mg/dL (74-99); Non-African American GFR(CKD) >90 (>60 ml/min/1.73 sqM); Potassium 3.5 mmol/L (3.5-5.1); Sodium 137 mmol/L (137-145); Total Bilirubin 0.5 mg/dL (0.2-1.3); Total Protein 4.8 g/dL (6.3-8.2)
--- NOTE | 2019-11-04 11:08 | P.PN ---
Subjective Progress Note Date: 11/04/19 CHIEF COMPLAINT: Pancreatitis HISTORY OF PRESENT ILLNESS: Patient is status post ERCP with sphincterotomy, unsuccessful balloon extraction of a CBD stone and insertion of stent. Patient still reports some abdominal pain with nausea. Afebrile. Labs are pending. PHYSICAL EXAM: VITAL SIGNS: Reviewed. GENERAL: Well-developed in no acute distress. HEENT: No sclera icterus. Extraocular movements grossly intact. Moist buccal mucosa. Head is atraumatic, normocephalic. ABDOMEN: Soft. Nondistended. Nontender. NEUROLOGIC: Alert and oriented. Cranial nerves II through XII grossly intact. ASSESSMENT: 1. Acute gallstone pancreatitis 2. Acute cholelithiasis 3. Cholelithiasis PLAN: -GI service recommending that patient will need referral after discharge to a tertiary center for evaluation by advanced endoscopy for treatment of choledocholithiasis -Continue current pain medication -Continue clear liquid diet. -Continue with IV fluid hydration -Await for further recommendations per GI service for discharge plan Physician Assistant Office Manager note has been reviewed by physician. Signing provider agrees with the documented findings, assessment, and plan of care. Objective - Vital Signs Vital signs: Vital Signs Temp 98.0 F 11/04/19 04:59 Pulse 96 11/04/19 04:59 Resp 18 11/04/19 08:00 BP 135/75 11/04/19 04:59 Pulse Ox 98 11/04/19 04:59 Intake & Output 11/03/19 11/04/19 11/04/19 18:59 06:59 18:59 Intake Total 480 Balance 480 Intake: Oral 480 Other: Voiding Method Toilet # Voids 3 4 - Labs CBC & Chem 7: 11/03/19 08:12 11/04/19 07:46 Labs: Abnormal Lab Results - Last 24 Hours (Table) 11/04/19 Range/Units 07:46 Carbon Dioxide 31 H (22-30) mmol/L BUN 3 L (7-17) mg/dL Creatinine 0.36 L (0.52-1.04) mg/dL Calcium 8.3 L (8.4-10.2) mg/dL AST 38 H (14-36) U/L Total Protein 4.8 L (6.3-8.2) g/dL Albumin 2.8 L (3.5-5.0) g/dL
[2019-11-04 14:28] VITALS: BMI 27.4
[2019-11-04] MEDS: KETOROLAC 15 MG/ML 1 ML VIAL IVP PRN (18:07)
--- NOTE | 2019-11-04 18:27 | XR ---
EXAMINATION TYPE: XR abdomen 2V DATE OF EXAM: 11/04/2019 CLINICAL DATA: 69 year-old female abdominal pain and distention, [facility] COMPARISON: CT 11/01/2019 FINDINGS: Small left pleural effusion appears to be new from 02/10/2020. No evidence for free intraperitoneal air. No dilated small bowel or fluid levels. Scattered gas seen in bowel loops are present. Air is present throughout the colon extending distally to the rectum. A bile duct stent is present. Vascular calcifications in the pelvis. IMPRESSION: 1. Placement of a bile duct stent. Nonobstructive bowel gas pattern. 2. New small left pleural effusion with adjacent atelectasis and/or consolidation.
--- NOTE | 2019-11-04 19:12 | PN ---
PROGRESS NOTE The patient is a 69-year-old pleasant white female admitted to the hospital with abdominal pain and acute gallstone pancreatitis. She underwent an ERCP by Dr. Woodson 2 days ago and was noted to have a large CBD stone for which she underwent a CBD stent placement. The patient this morning was complaining of diffuse abdominal pain. She reports two episodes of emesis. Had two bowel movements this morning. No fever, chills, night sweats. PHYSICAL EXAMINATION: She appears comfortable. No apparent distress. VITAL SIGNS: Stable. Blood pressure is 132/75, pulse rate 99, temperature 98.4. HEENT examination unremarkable. Conjunctivae pink. Sclerae anicteric. Oral cavity no lesions. NECK: No JVD or lymph node enlargement. CHEST was clear to auscultation. HEART: Regular rate and rhythm. ABDOMEN is slightly distended. There was mild diffuse tenderness noted. EXTREMITIES: No pedal edema. SKIN: No rashes. NEURO: She is alert and oriented x3. No focal deficits. LABS: CBC was not done. Lipase normal at 216. ALT and AST are 38 and 33, respectively. Alkaline phosphatase is normal. BUN and creatinine are normal. IMPRESSION: 1. Acute gallstone pancreatitis, lipase is normal. 2. Diffuse abdominal pain. 3. Choledocholithiasis status post ERCP by Dr. Woodson two days ago. Was noted to have a large CBD stone that could not be extracted and hence a CBD stent was placed. Currently LFTs are within normal limits. RECOMMENDATION: 1. Keep her on a clear liquid diet. 2. Pain medications as needed. 3. Obtain abdominal x-rays. 4. Repeat labs in the morning. 5. Symptomatic and supportive care. 6. We will follow with you closely. Thank you for this consultation. MMODL / IJN: [id number] /
[2019-11-05] MEDS: AMPICILLIN-SULBACTAM 3 GM in SODIUM CHLORIDE 0.9% 100 ML IVPB SCH ×2 (04:01→10:22)
[2019-11-05] MEDS: LACTATED RINGERS 1,000 ML IV SCH ×2 (04:02→07:53)
[2019-11-05 04:32] VITALS: RESP 16
[2019-11-05] MEDS ORDERED: IPRATROPIUM-ALBUTEROL 3 ML NEB INHALATION PRN (05:45)
[2019-11-05] MEDS ORDERED: FUROSEMIDE 10 MG/ML 4 ML VIAL IV STA (05:47)
--- NOTE | 2019-11-05 06:31 | XR ---
EXAMINATION TYPE: XR chest 1V DATE OF EXAM: 11/05/2019 COMPARISON: 11/01/2019 HISTORY: Chest pain TECHNIQUE: Single view FINDINGS: There is no heart failure. Thoracic aorta is atheromatous. There is slight blunting left co stophrenic angle. There are no hilar masses. IMPRESSION: There is some new minimal pleural reaction left lung base compared to old exam. No heart failure seen.
[2019-11-05] MEDS: PANTOPRAZOLE 40 MG/10 ML VIAL IVP SCH (07:52)
[2019-11-05] MEDS: HEPARIN SODIUM,PORCINE 5,000 UNIT/ML 1 ML VIAL SQ SCH (07:52)
[2019-11-05] MEDS: HYDROmorphone 0.5 MG/0.5 ML SYRINGE IVP PRN (07:57)
[2019-11-05 09:30] VITALS: BP 165/77; PULSE 61; TEMP 97.8
--- NOTE | 2019-11-05 10:20 | P.PN ---
Subjective On-call hospitalist covering for Dr. Humphries on 11/04 and 11/05. Dr. Humphries resume the care of the patient on 11/06 This is a pleasant 69 years old female with past medical history of COPD, DVT, GERD, hypertension, osteoarthritis. Presented on 10/31 for abdominal pain. Patient found to have gallstones pancreatitis status post ERCP with sitting or ectopy and a successful balloon extraction of common bile duct stone with insertion of stent. GI and general surgery team on the case. Possible may need to be referred to a tertiary care center for further management as per consultants recommendation. Today's vitals are stable. No labs from today, we're going to order CBC and BMP. Also check LFTs and lipase Patient is currently on Unasyn and Protonix. Patient had chest x-ray done today showing some new minimal pleural effusion on the left side with no heart failure Abdominal x-ray yesterday showed a placement of a bile duct stent with no ob structive bowel lesion with a new small left pleural effusion and atelectasis and/or consolidation -Acute gallstone pancreatitis, GI and surgery team on the case, patient status post ERCP and sputum ectopy with stent placement however failed balloon stone extraction, patient might be referred to a tertiary care center consultants -Small left pleural effusion and atelectasis and/or consolidation suspicious for pneumonia. Afebrile. Leukocytosis. Check percussed on a level DVT prophylaxis: -COPD, not an active issue -GERD -Hypertension -Osteoarthritis -History of DVT Subcutaneous heparin GI prophylaxis: Protonix Prognosis is guarded Objective - Vital Signs Vital signs: Vital Signs Temp 97.8 F 11/05/19 07:18 Pulse 97 11/05/19 07:42 Resp 16 11/05/19 08:00 BP 165/77 11/05/19 07:18 Pulse Ox 94 L 11/05/19 07:29 Intake & Output 11/04/19 11/05/19 11/05/19 18:59 06:59 18:59 Weight 68.039 kg Other: Voiding Method Toilet # Voids 3 3 - Labs CBC & Chem 7: 11/03/19 08:12 11/04/19 07:46
[2019-11-05] MEDS ORDERED: SODIUM CHLORIDE 0.9% 1,000 ML IV SCH (10:30)
--- NOTE | 2019-11-05 10:35 | P.PN ---
Subjective On-call hospitalist covering for Dr. Humphries on 11/04 and 11/05. Dr. Humphries resume the care of the patient on 11/06 This is a pleasant 69 years old female with past medical history of COPD, DVT, GERD, hypertension, osteoarthritis. Presented on 10/31 for abdominal pain. Patient found to have gallstones pancreatitis status post ERCP with sitting or ectopy and a successful balloon extraction of common bile duct stone with insertion of stent. GI and general surgery team on the case. Possible may need to be referred to a tertiary care center for further management as per consultants recommendation. Today still complaining of from abdominal pain and tenderness, she still on clear liquid diet and she has difficulty taking which might increase her pain. She has some dyspnea this morning and IV fluids were stopped and given 20 dose of Lasix however just x-ray showing no CHF. Her breathing is better now. Today's vitals are stable. No labs from today, we're going to order CBC and BMP. Also check LFTs and lipase Patient is currently on Unasyn and Protonix. Patient had chest x-ray done today showing some new minimal pleural effusion on the left side with no heart failure Abdominal x-ray yesterday showed a placement of a bile duct stent with no obstructive bowel lesion with a new small left pleural effusion and atelectasis and/or consolidation Objective - Vital Signs Vital signs: Vital Signs Temp 97.8 F 11/05/19 07:18 Pulse 97 11/05/19 07:42 Resp 16 11/05/19 08:00 BP 165/77 11/05/19 07:18 Pulse Ox 94 L 11/05/19 07:29 Intake & Output 11/04/19 11/05/19 11/05/19 18:59 06:59 18:59 Weight 68.039 kg Other: Voiding Method Toilet # Voids 3 3 - Exam GENERAL: The patient is alert and oriented x3, not in any acute distress. Well developed, well nourished. HEENT: Pupils are round and equally reacting to light. EOMI. No scleral icterus. No conjunctival pallor. Normocephalic, atraumatic. No pharyngeal erythema. No thyromegaly. CARDIOVASCULAR: S1 and S2 present. No murmurs, rubs, or gallops. -PULMONARY: Chest is clear to auscultation, no crackles. Mild scattered w heezing -ABDOMEN: Soft, periumbilical tenderness, nondistended, normoactive bowel sounds. No palpable organomegaly. MUSCULOSKELETAL: No joint swelling or deformity. EXTREMITIES: No cyanosis, clubbing, or pedal edema. NEUROLOGICAL: Gross neurological examination did not reveal any focal deficits. SKIN: No rashes. no petechiae. - Labs CBC & Chem 7: 11/03/19 08:12 11/04/19 07:46 Assessment and Plan Assessment: -Acute gallstone pancreatitis, GI and surgery team on the case, patient status post ERCP and sputum ectopy with stent placement however failed balloon stone extraction, patient might be referred to a tertiary care center per consultants -Small left pleural effusion and atelectasis and/or consolidation suspicious for pneumonia. Afebrile. Leukocytosis. Check procalcitonin level. Patient is already on Unasyn, we'll adjust antibiotics accordingly. Continue with 2 -COPD, not an active issue with possible mild COPD exacerbation. Start Solu- Medrol, small dose and patient is already on antibiotics, continue with a breathing treatment -GERD. On Protonix -Hypertension -Osteoarthritis -History of DVT DVT prophylaxis: Subcutaneous heparin GI prophylaxis: Protonix Prognosis is guarded
[2019-11-05] MEDS: KETOROLAC 15 MG/ML 1 ML VIAL IVP PRN (10:36)
[2019-11-05] MEDS ORDERED: methylPREDNISolone SOD SUCCI 40 MG/ML 1 ML VIAL IV SCH (10:45)
[2019-11-05 10:53] LABS: Basophils % (A) 0 %; Eosinophils # (A) 0.1 k/uL (0-0.7); Eosinophils % (A) 1 %; HCT 47.2 % (34.0-46.0); HGB 15.5 gm/dL (11.4-16.0); Lymphocytes % (A) 8 %; MCH 32.2 pg (25.0-35.0); MCHC 32.9 g/dL (31.0-37.0); Mean Platelet Volume 8.7; Monocytes # (A) 0.6 k/uL (0-1.0); Monocytes % (A) 5 %; Neutrophils # (A) 10.5 k/uL (1.3-7.7); Neutrophils % (A) 85 %; Platelet Count 165 k/uL (150-450); RBC 4.82 m/uL (3.80-5.40); WBC 12.3 k/uL (3.8-10.6)
[2019-11-05 11:06] LABS: ALT 29 U/L (4-34); AST 30 U/L (14-36); African American GFR (CKD) >90 (>60 ml/min/1.73 sqM); Albumin 3.3 g/dL (3.5-5.0); Alkaline Phosphatase 110 U/L (38-126); Anion Gap 6 mmol/L; Bilirubin, Delta 0.2 mg/dL (0.0-0.2); Bilirubin,Unconjugated 0.4 mg/dL (0.0-1.1); Blood Urea Nitrogen 2 mg/dL (7-17); Calcium 8.9 mg/dL (8.4-10.2); Carbon Dioxide 38 mmol/L (22-30); Chloride 88 mmol/L (98-107); Glucose 100 mg/dL (74-99); Non-African American GFR(CKD) >90 (>60 ml/min/1.73 sqM); Potassium 2.8 mmol/L (3.5-5.1); Sodium 132 mmol/L (137-145); Total Bilirubin 0.6 mg/dL (0.2-1.3); Total Protein 5.6 g/dL (6.3-8.2)
--- NOTE | 2019-11-05 11:12 | P.DS ---
Providers Date of admission: 11/01/19 21:11 Expected date of discharge: 11/05/19 Attending physician: Jeromy Barahona Consults: 11/01/19 21:34 Consult Physician Routine Consulting Provider: Jeremiah Woodson Consult Reason/Comments: gi Do you want consulting provider notified?: Yes 11/02/19 08:25 Consult Physician Routine Consulting Provider: Adal Humphries Consult Reason/Comments: med manage Do you want consulting provider notified?: Yes Primary care physician: Adal Humphries Hospital Course: This is a 69-year-old female who is minimal hospital for gallstone pancreatitis and choledocholithiasis. Patient underwent ERCP with stent placement. Patient's stay was unremarkable. Please see hospital chart for details. Procedures: ERCP Patient Condition at Discharge: Good Plan - Discharge Summary New Discharge Prescriptions: No Action amLODIPine BESYLATE [Norvasc] 5 mg PO DAILY Vitamin C/Biotin [Hair, Skin and Nails] 1 tab PO DAILY Naproxen Sodium [Aleve] 440 mg PO DAILY PRN PRN Reason: Pain Multivit-Min/FA/Lycopen/Lutein [Centrum Silver Tablet] 1 tab PO DAILY Magnesium 200 mg PO DAILY Escitalopram [Lexapro] 10 mg PO DAILY [id number] [Excedrin] 2 tab PO BID PRN PRN Reason: Pain Albuterol Inhaler [Ventolin Hfa Inhaler] 2 puff INHALATION RT-QID PRN PRN Reason: Shortness Of Breath Discharge Medication List amLODIPine BESYLATE [Norvasc] 5 mg PO DAILY 02/10/17 [History] Magnesium 200 mg PO DAILY 08/27/18 [History] Multivit-Min/FA/Lycopen/Lutein [Centrum Silver Tablet] 1 tab PO DAILY 08/27/18 [History] Naproxen Sodium [Aleve] 440 mg PO DAILY PRN 08/27/18 [History] Vitamin C/Biotin [Hair, Skin and Nails] 1 tab PO DAILY 08/27/18 [History] Escitalopram [Lexapro] 10 mg PO DAILY 09/01/18 [History] Albuterol Inhaler [Ventolin Hfa Inhaler] 2 puff INHALATION RT-QID PRN 11/01/19 [History] Qlmjjxz-Ikci-Cuxz [id number] [Excedrin] 2 tab PO BID PRN 11/01/19 [History] Follow up Appointment(s)/Referral(s): Adal Humphries DO [Primary Care Provider] - 1-2 days Jeromy Barahona MD [STAFF PHYSICIAN] - 1 Week Jeremiah Woodson MD [STAFF PHYSICIAN] - 1 Week Discharge Disposition: HOME SELF-CARE
--- NOTE | 2019-11-08 07:50 | CDI ---
Documentation Clarification Form Date: 11/08/2019 From: Jarvis Amato Phone: If you have a question about this query, please contact Sylvia Frank, Tunnel Form Placing Supervisor at [phone] between 8am and 5pm. Admit Date: 11/01/2019 Discharge Date:11/05/2019 Patient Name: Arlen Mccabe Visit Number: [id number] ATTENTION: The Clinical Documentation Specialists (CDI) and [facility] Coding Staff appreciate your assistance in clarifying documentation. Please respond to the clarification below the line at the bottom and electronically sign. The CDI & [facility] Coding staff will review the response and follow-up if needed. Please note: Queries are made part of the Legal Health Record. If you have any questions, please contact the author of this message via ITS. Dear Jeromy Poole., Pneumonia was documented in 11/04 Dr. Mildred Saavedra mentioned as "-Small left pleural effusion and atelectasis and/or consolidation suspicious for pneumonia.Afebrile.Leukocytosis.Check procalcitonin level.Patient is already on Unasyn, we'll adjust antibiotics accordingly. History/Risk Factors: COPD, Arthritis, HTN Clinical Indicators: pleural effusion, Atelectasis WBC/Left shift: 11.0 on admission, 12.3 on 11/04 X-ray: There is some new minimal pleural reaction left lung base compared to old exam. Treatment: Unasyn In order to capture the severity of condition, please clarify Pneumonia Presence? YES NO Other, please specify Unable to determine Unable to determine MTDD
== END 2019-11-05 13:34 | disposition home or self-care (01) | DRG 439 ==
LOC: EC 17:07 → 5NMEDONC 21:11
PROVIDERS: ADMIT Surgery; ATTEND Surgery
PROC: BF101ZZ Fluoroscopy of Bile Ducts using Low Osmolar Contrast (ICD-10-PCS; principal; 2019-11-02 07:45)
PROC: 0F798DZ Dilation of Common Bile Duct with Intraluminal Device, Via Natural or Artificial Opening Endoscopic (ICD-10-PCS; principal; 2019-11-02 07:45)
DX: K85.10 Biliary acute pancreatitis without necrosis or infection (principal); J44.1 Chronic obstructive pulmonary disease with (acute) exacerbation; I10 Essential (primary) hypertension; M19.90 Unspecified osteoarthritis, unspecified site; F12.90 Cannabis use, unspecified, uncomplicated; K21.9 Gastro-esophageal reflux disease without esophagitis; K80.20 Calculus of gallbladder without cholecystitis without obstruction; F17.200 Nicotine dependence, unspecified, uncomplicated; Z86.718 Personal history of other venous thrombosis and embolism; Z79.899 Other long term (current) drug therapy; Z90.49 Acquired absence of other specified parts of digestive tract; Z90.710 Acquired absence of both cervix and uterus; Z80.9 Family history of malignant neoplasm, unspecified
CPT/HCPCS: 36415; 43262; 43274; 71045; 71046; 74019; 74177; 74330; 76705; 80048; 80053; 80076; 82140; 83605; 83690; 83735; 83880; 84145; 84484; 85025; 85610; 85730; 93005; 94640; 94760

== ENCOUNTER 2022-08-06 16:16 | Inpatient (IN) | payer MEDICARE ==
[2022-08-06 16:27] LABS: Glucose,Whole Blood 116 mg/dL (70-110)
[2022-08-06 16:55] LABS: Basophils % (A) 0 %; Eosinophils # (A) 0.1 k/uL (0-0.7); Eosinophils % (A) 1 %; HCT 53.9 % (34.0-46.0); HGB 17.6 gm/dL (11.4-16.0); Lymphocytes # (A) 2.3 k/uL (1.0-4.8); Lymphocytes % (A) 23 %; MCH 34.6 pg (25.0-35.0); MCHC 32.7 g/dL (31.0-37.0); MCV 105.7 fL (80.0-100.0); Macrocytosis Moderate; Monocytes # (A) 0.4 k/uL (0-1.0); Monocytes % (A) 4 %; Neutrophils # (A) 7.1 k/uL (1.3-7.7); Neutrophils % (A) 70 %; Platelet Count 196 k/uL (150-450); RDW 15.9 % (11.5-15.5); WBC 10.2 k/uL (3.8-10.6)
[2022-08-06 17:13] LABS: Partial Thromboplastin Time 22.1 sec (22.0-30.0); Prothrombin Time 10.7 sec (9.0-12.0)
[2022-08-06 17:18] LABS: ALT 17 U/L (4-34); AST 17 U/L (14-36); African American GFR (CKD) 52 (>60 ml/min/1.73 sqM); Alkaline Phosphatase 63 U/L (38-126); Anion Gap 11 mmol/L; Blood Urea Nitrogen 20 mg/dL (7-17); Calcium 9.3 mg/dL (8.4-10.2); Carbon Dioxide 28 mmol/L (22-30); Chloride 96 mmol/L (98-107); Creatine Kinase <20 U/L (30-135); Glucose 115 mg/dL (74-99); Non-African American GFR(CKD) 45 (>60 ml/min/1.73 sqM); Potassium 4.7 mmol/L (3.5-5.1); Sodium 135 mmol/L (137-145); Total Bilirubin 0.5 mg/dL (0.2-1.3); Total Protein 6.6 g/dL (6.3-8.2)
--- NOTE | 2022-08-06 17:38 | CT ---
EXAMINATION TYPE: CT brain wo con DATE OF EXAM: 08/06/2022 HISTORY: Neuro Deficit, stroke suspected. CT DLP: 1169.6 mGycm. Automated Exposure Control for Dose Reduction was Utilized. TECHNIQUE: CT scan of the head is performed without contrast. COMPARISON: None. FINDINGS: There is no acute intracranial hemorrhage or midline shift identified. There is mild to m oderate diffuse ventricular and sulcal prominence with sulcal prominence greatest over the bilateral frontal lobes. There is hyor-[id number] low-attenuation in the deep and periventricular white matte r. Vague area of low attenuation left frontal lobe anterior watershed region axial image 44. Similar finding noted high left posterior frontal region axial image 51. The globes are intact and the visua lized sinuses are clear. Focal 5 mm calcification high right frontal lobe is suspected dystrophic c alcification axial image 53 IMPRESSION: 1. No acute intracranial hemorrhage or midline shift. There is mild to moderate diffuse cerebral atr ophy greatest over bilateral frontal lobes and mild to moderate chronic small vessel ischemic change noted. 2. 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 Correlation with old outside CT or MRI would be beneficial.
[2022-08-06] MEDS ORDERED: ASPIRIN 81 MG PO STA (17:39)
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
--- NOTE | 2022-08-06 18:25 | CT ---
EXAMINATION TYPE: CT angio head neck DATE OF EXAM: 08/06/2022 HISTORY: Neuro deficit stroke suspected. COMPARISON: None. CT DLP: 415.3 mGycm. Automated Exposure Control for Dose Reduction was Utilized. TECHNIQUE: CTA scan of the head and neck is performed with IV Contrast, patient injected with 65cc m L of Isovue 370, axial images are obtained, coronal and sagittal reformatted images are reviewed. 3D reconstructed images are created on an independent workstation and reviewed. FINDINGS: Carotid/Vascular Structures: Moderate mixed plaque in the periphery of the aortic arch extending into 3 great vessels. No significant stenosis at this level is seen. Normal origin of the right common ca rotid artery from the right brachiocephalic artery. Focal mild/moderate calcified plaque right common carotid artery axial image 69. There is moderate peripheral calcified plaque in the proximal right i nternal carotid artery right at the carotid bulb. No significant stenosis. Patent right external trevino tid artery without significant stenosis. Moderate to severe calcified plaque distal internal carotid artery supraclinoid segment without significant stenosis. Moderate mixed plaque in the anterior portion of the mid to distal common carotid artery. There is mi [id number] plaque at the left carotid bulb with moderate calcified plaque extending into external carotid artery without significant stenosis. There is severe mixed plaque extending into the left in ternal carotid artery. Significant stenosis is felt present with lumen diameter significantly narrowe d to approximately 8 mm on the raw data image 391. Lumen reconstitutes to 4.2 mm distal to this. The remainder of the right internal carotid artery shows moderate calcified plaque distally without signi ficant stenosis. There are codominant vertebral arteries patent to the basilar junction. There is no significant focal stenosis or aneurysm in the posterior circulation. There are hypoplastic bilateral posterior communi cating arteries. Images of the anterior circulation show patent anterior communicating artery. No sig nificant focal stenosis or aneurysm in the anterior circulation. Other: Mild emphysematous change greatest in the upper lungs. Loss of normal cervical curvature with grade 1 retrolisthesis C3 on C4 and to a greater degree C4 on C5 and C5 on C6. Moderate to severe disc space narrowing and spurring at these levels is seen. IMPRESSION: 1. No significant stenosis or aneurysm at the level of [place]. 2. Severe mixed plaque with significant stenosis proximal left internal carotid artery measured appro ximate 80-85%. NASCET criteria was used in interpretation of this exam?
--- NOTE | 2022-08-06 19:16 | XR ---
EXAMINATION TYPE: XR chest 2V DATE OF EXAM: 08/06/2022 COMPARISON: Chest x-ray November 05, 2019 HISTORY: Altered mental status and weakness TECHNIQUE: Frontal and lateral views of the chest are obtained. FINDINGS: Improved inspiration. There is chronic parenchymal change without suspicious focal air spac e opacity, pleural effusion, or pneumothorax seen. The cardiac silhouette size is stable and within normal limits with atherosclerotic change thoracic aorta. The osseous structures are demineralized. IMPRESSION: No acute cardiopulmonary process.
[2022-08-06 20:11] LABS: Appearance,Urine Clear (Clear); Bilirubin,Urine Negative (Negative); Blood,Urine Negative (Negative); Color,Urine Light Yellow; Glucose,Urine (UA) Negative (Negative); Ketones,Urine Negative (Negative); Leukocyte Esterase,Urine Small (Negative); Mucus,Urine Rare /hpf; Nitrite,Urine Negative (Negative); PH, Urine 5.5 (5.0-8.0); Protein,Urine Negative (Negative); RBC,Urine 2 /hpf (0-5); Squamous Epithelial Cell,Urine <1 /hpf (0-4); Urobilinogen,Urine <2.0 mg/dL (<2.0); WBC,Urine 6 /hpf (0-5)
[2022-08-06 20:14] LABS: Specific Gravity,Urine >1.050 (1.001-1.035)
[2022-08-07] MEDS ORDERED: traMADol 50 MG TAB PO PRN (02:37)
[2022-08-07] MEDS ORDERED: diphenhydrAMINE 50 MG CAP PO PRN (02:38)
[2022-08-07] MEDS: SODIUM CHLORIDE 0.9% 1,000 ML IV SCH ×2 (08:00→18:39)
[2022-08-07] MEDS: LOSARTAN 50 MG TAB PO SCH (09:34)
[2022-08-07] MEDS: ASPIRIN 325 MG TAB PO SCH (09:35)
[2022-08-07] MEDS: amLODIPine 10 MG TAB PO SCH (09:35)
[2022-08-07] MEDS: CLOPIDOGREL 75 MG TAB PO SCH (11:43)
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
[2022-08-07] MEDS ORDERED: SYMBICORT 80-4.5 MCG INHALER INHALATION SCH (12:57)
[2022-08-07] MEDS ORDERED: IPRATROPIUM-ALBUTEROL 3 ML NEB INHALATION PRN (12:57)
[2022-08-07] MEDS: NICOTINE 14MG/24HR PATCH TRANSDERM SCH (13:24)
[2022-08-07] MEDS: PANTOPRAZOLE 40 MG/10 ML VIAL IVP SCH (13:24)
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
[2022-08-07 15:03] LABS: LDL Cholesterol,Calculated 116.6 mg/dL (0.0-131.0)
[2022-08-07] MEDS: SYMBICORT 80-4.5 MCG INHALER INHALATION SCH ×2 (15:17→21:49)
[2022-08-07] MEDS: IPRATROPIUM-ALBUTEROL 3 ML NEB INHALATION SCH ×2 (15:37→21:49)
--- NOTE | 2022-08-07 17:08 | US ---
EXAMINATION TYPE: US carotid duplex BILAT DATE OF EXAM: 08/07/2022 COMPARISON: NONE CLINICAL INDICATION: Female, 71 years old with history of Left ICA stenosis, symptomatic CVA; CVA. Le ft carotid stenosis. right hand weakness/numbness TECHNIQUE: Carotid duplex ultrasound examination. Indirect Doppler criteria was utilized. FINDINGS: EXAM MEASUREMENTS: RIGHT: Peak Systolic Velocity (PSV) cm/sec ----- Right CCA: 64.7 ----- Right ICA: 87.8 ----- Right ECA: 85.6 ICA/CCA ratio: 1.4 RIGHT: End Diastole cm/sec ----- Right CCA: 19.7 ----- Right ICA: 24.1 ----- Right ECA: 14.2 LEFT: Peak Systolic Velocity (PSV) cm/sec ----- Left CCA: 48.8 ----- Left ICA: 275.1 ----- Left ECA: 85.3 ICA/CCA ratio: 5.6 LEFT: End Diastole cm/sec ----- Left CCA: 8.6 ----- Left ICA: 88.9 ----- Left ECA: 19.3 VERTEBRALS (direction of flow): Right Vertebral: Antegrade Left Vertebral: Antegrade SUBMARINE DIVER NOTES: Moderate to severe plaque bilateral bifurcations, worse on the left. Increased eda ocities left ICA IMPRESSION: 1. Greater than 70% stenosis of the left carotid bifurcation. 2. Less than 50% stenosis of the right carotid bifurcation. Criteria for Assigning % of Stenosis / Diameter reduction (Estimation based on the indirect measurements of the internal carotid artery velocities (ICA PSV). 1. Normal (no stenosis)=ICA PSV < 125 cm/s: ratio < 2.0: ICA EDV<40 cm/s. 2. Less than 50% stenosis=ICA PSV < 125 cm/s: ratio < 2.0: ICA EDV<40 cm/s. 3. 50 to 69% stenosis=ICA PSV of 125 to 230 cm/s: ration 2.0 ? 4.0: ICA EDV 40-100 cm/s. 4. Greater than 70% stenosis to near occlusion= ICA PSV > 230 cm/s: ratio > 4.0: ICA EDV > 100 cm/s. 5. Near occlusion= ICA PSV velocities may be low or undetectable: variable ratio and ICA EDV. 6. Total occlusion=unable to detect flow.
[2022-08-07] MEDS: HEPARIN SODIUM,PORCINE/PF 5,000 UNIT/0.5 ML SYRINGE SQ SCH (20:33)
[2022-08-07] MEDS ORDERED: MIRTAZAPINE 15 MG TAB PO SCH (21:00)
[2022-08-07] MEDS ORDERED: ATORVASTATIN 40 MG TAB PO SCH (21:00)
[2022-08-08] MEDS: ASPIRIN 325 MG TAB PO SCH (08:12)
[2022-08-08] MEDS: CLOPIDOGREL 75 MG TAB PO SCH (08:12)
[2022-08-08] MEDS: LOSARTAN 50 MG TAB PO SCH (08:12)
[2022-08-08] MEDS: PANTOPRAZOLE 40 MG/10 ML VIAL IVP SCH (08:13)
[2022-08-08] MEDS: amLODIPine 10 MG TAB PO SCH (08:13)
[2022-08-08] MEDS: HEPARIN SODIUM,PORCINE/PF 5,000 UNIT/0.5 ML SYRINGE SQ SCH (08:13)
[2022-08-08] MEDS: NICOTINE 14MG/24HR PATCH TRANSDERM SCH (08:13)
[2022-08-08] MEDS: IPRATROPIUM-ALBUTEROL 3 ML NEB INHALATION SCH ×3 (08:17→15:33)
[2022-08-08] MEDS: SYMBICORT 80-4.5 MCG INHALER INHALATION SCH (08:19)
[2022-08-08 08:22] VITALS: RESP 20
--- NOTE | 2022-08-08 09:05 | CA ---
Transthoracic Echo Report Name: Arlen Mccabe Age: 71 Gender: F : 1950 Exam Date: 08/07/2022 13:51 Exam Location: [facility] Ht (in): 63 Wt (lb): 140 Ordering Physician: Juan Carlos Parekh MD Attending/Referring Phys: Nurse Recruiter Abebe Nance Procedure CPT: Indications: acute CVA Cardiac Hx: HTN, COPD,CVA Technical Quality: Fair Contrast 1: Total Dose (mL): Contrast 2: Total Dose (mL): MEASUREMENTS (Male / Female) Normal Values 2D ECHO LV Diastolic Diameter PLAX 3.9 cm 4.2 - 5.9 / 3.9 - 5.3 cm LV Systolic Diameter PLAX 2.7 cm IVS Diastolic Thickness 1.6 cm 0.6 - 1.0 / 0.6 - 0.9 cm LVPW Diastolic Thickness 1.1 cm 0.6 - 1.0 / 0.6 - 0.9 cm LV Relative Wall Thickness 0.7 RV Internal Dim ED PLAX 1.8 cm LVOT Diameter 1.9 cm Aortic Root Diameter 2.8 cm LA Systolic Diameter LX 3.0 cm 3.0 - 4.0 / 2.7 - 3.8 cm LV Diastolic Volume MOD BP 18.8 cm??? 67 - 155 / 56 - 104 cm??? LV Systolic Volume MOD BP 10.2 cm??? 22 - 58 / 19 - 49 cm??? LV Ejection Fraction MOD BP 45.8 % >= 55 % LV Diastolic Volume MOD 4C 24.0 cm??? LV Systolic Volume MOD 4C 10.3 cm??? LV Ejection Fraction MOD 4C 57.2 % LV Diastolic Length 4C 5.7 cm LV Systolic Length 4C 5.0 cm LV Diastolic Volume MOD 2C 20.6 cm??? LV Systolic Volume MOD 2C 10.3 cm??? LV Ejection Fraction MOD 2C 49.7 % LV Diastolic Length 2C 5.7 cm LV Systolic Length 2C 5.1 cm DOPPLER Mitral E Point Velocity 83.7 cm/s Mitral A Point Velocity 116.0 cm/s Mitral E to A Ratio 0.7 MV Deceleration Time 272.1 ms MV E' Velocity 6.6 cm/s Mitral E to MV E' Ratio 12.7 TR Peak Velocity 184.1 cm/s TR Peak Gradient 13.6 mmHg Right Ventricular Systolic Press 18.7 mmHg PV Peak Velocity 89.6 cm/s PV Peak Gradient 3.2 mmHg FINDINGS Left Ventricle Left ventricular ejection fraction is estimated at 55-60 %. Right Ventricle Normal right ventricular size and function. RVSP= 17mmhg Right Atrium Mild right atrial dilatation. Left Atrium LA Index 18.8 ml/m2 Mitral Valve Posterior MAC. Aortic Valve Hevily Calcified. Mild Stenosis. Tricuspid Valve Structurally normal tricuspid valve. Mild TR. Pulmonic Valve Pulmonic valve not well visualized. Trace [place]. Pericardium Normal pericardium. Aorta Aortic root and proximal ascending aorta not well visualized. CONCLUSIONS Normal LV size and systolic function. There is mitral and the calcification with nonspecific thickening of posterior mitral leaflet. There is aortic valve sclerosis with calcification but the valve was not well interrogated. I don't believe stenosis is significant. No pericardial effusion. No pulmonary hypertension Previewed by: Dr. Rabia Amato MD (Electronically Signed) Final Date: 08 Aug 2022 09:03
--- NOTE | 2022-08-08 11:05 | P.PN ---
Subjective Progress Note Date: 08/08/22 Principal diagnosis: Carotid stenosis Patient was seen and examined today as a follow-up for acute ischemic stroke and symptomatic left ICA stenosis. Patient denies any new focal deficits through the night. States that she feels that she has some been gaining some increased strength in her right hand. Carotid duplex completed yesterday showing greater than 70% left ICA stenosis and less than 50% right ICA stenosis. Echocardiogram with findings of EF of 55-60%, mitral calcification with nonspecific thickening of posterior mitral leaflet. Aortic valve sclerosis with calcification. No pericardial effusion. No pulmonary hypertension. Objective - Vital Signs Vital signs: Vital Signs Temp 98.6 F 08/08/22 08:00 Pulse 80 08/08/22 08:28 Resp 20 08/08/22 08:00 BP 124/61 08/08/22 08:00 Pulse Ox 94 L 08/08/22 08:00 FiO2 21 08/08/22 08:20 Intake & Output 08/07/22 08/08/22 08/08/22 18:59 06:59 18:59 Intake Total 720 240 Balance 720 240 Intake: Intake, IV Titration 0 Amount Sodium Chloride 0.9% 1, 0 000 ml @ 20 mls/hr IV . Q24H [facility] Rx#:[id number] Oral 720 240 Other: Voiding Method Toilet # Voids 1 - Exam General appearance: The patient is alert, oriented, appears in no acute distress. HET: Head is normocephalic and atraumatic. Pupils are equal and reactive. Neck: Supple without lymphadenopathy. Trachea midline. Left carotid bruit. Heart: Regular. Lungs: Equal expansion, normal respiratory effort. Bilateral expiratory wheezes. Abdomen: Soft, nontender, nondistended. Extremities: Normal skin color and turgor. No cyanosis, rash, ulceration, clubbing, or edema. Radial and pedal pulses are 2/4 bilaterally. Neurological: Right hand/grasp weakness. Right facial droop seems somewhat improved. Speech is fluent, able to follow commands. Right lower extremity strength equal bilateral. - Labs CBC & Chem 7: 08/06/22 16:40 08/08/22 11:10 Labs: Abnormal Lab Results - Last 24 Hours (Table) 08/07/22 Range/Units 08:44 Cholesterol 204.00 H (0.00-200.00) mg/dL HDL Cholesterol 65.80 H (40.00-60.00) mg/dL Assessment and Plan Assessment: 1. Symptomatic Left ICA stenosis 80-85% per CT angiogram neck 2. Right upper extremity weakness and facial droop, acute ischemic stroke watershed area left MCA/ELLE territory seen on brain CT 3. Nicotine dependence, daily smoker half pack per day 4. Hypertension 5. COPD Plan: 1. Continue aspirin, Plavix, and statin 2. Continue PT/OT/ST 3. Smoking cessation 4. Patient is stable from a vascular surgical standpoint for discharge 5. Discussed patient with a neurologist Dr. Parekh, he is recommending surgical intervention inpatient, however patient will need to be on Plavix for 5 days prior to trans carotid artery revascularization if that is choice of surgical approach which needs to be further evaluated. Recommend discharge with follow up appointment scheduled 08/12/2022 with surgery to follow. Dr. Parekh with neurology notified. Thank you for this consultation, we will continue to follow. The impression and plan of care has been dictated as directed. Dr. Perla I performed a history and examination of this patient, discussed the same with the dictator. I agree with the dictator's note ,documented as a scribe. Any additional findings or plans will be noted.
[2022-08-08 11:45] VITALS: BP 119/69; TEMP 98.1
[2022-08-08 11:58] LABS: African American GFR (CKD) >90 (>60 ml/min/1.73 sqM); Anion Gap 8 mmol/L; Blood Urea Nitrogen 17 mg/dL (7-17); Calcium 8.5 mg/dL (8.4-10.2); Carbon Dioxide 29 mmol/L (22-30); Chloride 96 mmol/L (98-107); Glucose 119 mg/dL (74-99); Non-African American GFR(CKD) 88 (>60 ml/min/1.73 sqM); Potassium 3.8 mmol/L (3.5-5.1); Sodium 133 mmol/L (137-145)
[2022-08-08 15:48] VITALS: PULSE 76
--- NOTE | 2022-08-08 19:33 | P.PN ---
Subjective Progress Note Date: 08/08/22 Patient was seen for a follow-up. Patient says she is feeling better. Denies any new neurological symptoms. Objective - Vital Signs Vital signs: Vital Signs Temp 98.1 F 08/08/22 11:44 Pulse 80 08/08/22 11:44 Resp 20 08/08/22 11:44 BP 119/69 08/08/22 11:44 Pulse Ox 92 L 08/08/22 11:44 FiO2 21 08/08/22 08:20 Intake & Output 08/07/22 08/08/22 08/08/22 18:59 06:59 18:59 Intake Total 720 360 Balance 720 360 Intake: Intake, IV Titration 0 Amount Sodium Chloride 0.9% 1, 0 000 ml @ 20 mls/hr IV . Q24H IRA Rx#:[id number] Oral 720 360 Other: Voiding Method Toilet # Voids 1 - Exam Patient is an elderly female, very pleasant, in no acute distress. Patient is alert awake oriented to time place and person. Speech and language functions are normal. Patient can name and repeat very well. No aphasia or dysarthria. Attention, concentration and fund of knowledge is adequate. On cranial nerve examination, pupils are equal, round and reacting to light, visual gallo are full on confrontation, with no neglect on double simultaneous stimulation. Extraocular muscles are intact with no nystagmus. Patient has right facial weakness, central type, appears better than yesterday. Her tongue protrudes to the midline. Palatal elevation and sensation normal, hearing and shoulder shrug normal, facial sensation normal. On muscle strength testing, there is right full pronation (almost 270, as compared to 360 yesterday), but no drift. The muscle strength is normal in arms and biceps, triceps, deltoid, but the measurement specialist is 4+ right, 5 left. Her strength is completely normal in both lower limbs. Deep tendon reflexes are symmetric and trace at the biceps, trace brachioradialis, trace at the knees and downgoing plantars bilaterally. Sensory to touch is equal with no neglect on double simultaneous stimulation. Cerebellar function showed no ataxia for [id number] testing. No dys diadochokinesia. No ataxia for [id number] testing on either side. Tone and bulk of muscles normal. Gait deferred.. On general examination, there is no carotid bruit or murmur, S1-S2 audible. Ch est is clear on consultation. Abdomen is soft nontender. No organomegaly, bowel sounds present. Peripheral pulses are present. No edema. - Labs CBC & Chem 7: 08/06/22 16:40 08/08/22 11:10 Labs: Abnormal Lab Results - Last 24 Hours (Table) 08/08/22 Range/Units 11:10 Sodium 133 L (137-145) mmol/L Chloride 96 L (98-107) mmol/L Glucose 119 H (74-99) mg/dL Assessment and Plan Assessment: * Acute ischemic stroke, watershed area left MCA/ELLE territory, likely due to symptomatic left ICA stenosis. Patient was not a candidate for TPA as her symptoms have been present for 2 or 3 days. Patient has presented with right facial brachial weakness. * Left ICA stenosis, 80-85% per CTA. * Hypertension * Tobacco use * Chronic daily headaches * Macrocytosis, rule out B12, folate deficiency Plan: * Patient has symptomatic left ICA stenosis. * CTA head and neck showed: Severe mixed plaque with significant stenosis proximal left ICA measured approximately 80-85%. * Carotid Doppler also revealed greater than 70% stenosis of the left carotid bifurcation. Less than 50% stenosis of the right carotid bifurcation. A ntegrade flow in both vertebral arteries. * Vascular surgical input appreciated. Patient to undergo left CEA within 1 week. Patient needs to be on Plavix for 5 days before procedure can be performed. * Continue aspirin 325 mg and Plavix 75 mg daily. Patient currently on Protonix 40 mg IV daily. * 2-D echo revealed normal left ventricular size and systolic function with EF 55-60%. Mild left atrial dilation. There is mitral valve calcification with nonspecific thickening of the posterior mitral leaflet. There is aortic valve sclerosis with calcification but the valve was not well interrogated. Dr. Amato reported, does not believe stenosis is significant. * Fasting a.m. lipid panel cholesterol 204, LDL 116, HDL 65 and triglycerides 108. Patient started on Lipitor 40 mg daily. * Hemoglobin A1c 5.5. * Optimize control of blood pressure. Blood pressure well controlled. * Recommend complete tobacco cessation. * Telemetry monitoring so far showing sinus rhythm with heart rate in around 73. * Neurologically clear for discharge. Patient will follow-up with Dr. Perla on 08/12/2022. Addendum: Patient has macrocytosis. B12 level checked was 188, folate 2.30. Patient needs to be on B12 and folate replacement. I spoke to patient's , informed him about the results, and to discuss with primary physician about replacement of B12 and folate, Also suggest taking Pepcid for gastric ulcer prophylaxis.
== END 2022-08-08 17:30 | disposition home health service (06) | DRG 65 ==
LOC: EC 16:16 → 3SCARD 19:39
PROVIDERS: ADMIT Family Medicine; ATTEND Family Medicine
DX: I63.232 Cerebral infarction due to unspecified occlusion or stenosis of left carotid arteries (principal); E87.1 Hypo-osmolality and hyponatremia; J44.9 Chronic obstructive pulmonary disease, unspecified; I35.8 Other nonrheumatic aortic valve disorders; G31.89 Other specified degenerative diseases of nervous system; F17.210 Nicotine dependence, cigarettes, uncomplicated; I10 Essential (primary) hypertension; R29.810 Facial weakness; R47.81 Slurred speech; K21.9 Gastro-esophageal reflux disease without esophagitis; M19.90 Unspecified osteoarthritis, unspecified site; Z79.899 Other long term (current) drug therapy; Z86.73 Personal history of transient ischemic attack (TIA), and cerebral infarction without residual deficits; Z86.718 Personal history of other venous thrombosis and embolism; Z90.710 Acquired absence of both cervix and uterus
CPT/HCPCS: 36415; 70450; 70496; 70498; 71046; 80048; 80053; 80061; 81001; 82550; 82607; 82746; 83036; 84484; 85025; 85610; 85730; 93005; 93306; 93880; 94640; 94760; 99285

== ENCOUNTER 2022-09-08 15:30 | Inpatient (IN) | payer MEDICARE ==
[2022-09-08] MEDS ORDERED: IPRATROPIUM-ALBUTEROL 3 ML NEB INHALATION STA (16:10)
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
[2022-09-08 16:23] LABS: ABG Base Excess 8.6 mmol/L; ABG HCO3 34 mmol/L (21-25); ABG PCO2 57 mmHg (35-45); ABG PH 7.38 (7.35-7.45); ABG PO2 75 mmHg (83-108); ABG TCO2 35 mmol/L (19-24); Allen Test Performed? Yes
[2022-09-08 17:03] LABS: Basophils % (A) 0 %; Eosinophils # (A) 0.1 k/uL (0-0.7); Eosinophils % (A) 2 %; HCT 53.1 % (34.0-46.0); HGB 17.2 gm/dL (11.4-16.0); Lymphocytes % (A) 18 %; MCH 33.8 pg (25.0-35.0); MCHC 32.5 g/dL (31.0-37.0); MCV 104.1 fL (80.0-100.0); Macrocytosis Slight; Mean Platelet Volume 8.4; Monocytes # (A) 0.3 k/uL (0-1.0); Monocytes % (A) 5 %; Neutrophils # (A) 4.2 k/uL (1.3-7.7); Neutrophils % (A) 74 %; Platelet Count 157 k/uL (150-450); RDW 14.6 % (11.5-15.5); WBC 5.7 k/uL (3.8-10.6)
[2022-09-08 17:14] LABS: ALT 12 U/L (4-34); AST 16 U/L (14-36); African American GFR (CKD) >90 (>60 ml/min/1.73 sqM); Albumin 3.6 g/dL (3.5-5.0); Alkaline Phosphatase 87 U/L (38-126); Anion Gap 8 mmol/L; Blood Urea Nitrogen 9 mg/dL (7-17); Carbon Dioxide 31 mmol/L (22-30); Chloride 92 mmol/L (98-107); Glucose 96 mg/dL (74-99); Non-African American GFR(CKD) >90 (>60 ml/min/1.73 sqM); Potassium 3.5 mmol/L (3.5-5.1); Sodium 131 mmol/L (137-145); Total Bilirubin 0.3 mg/dL (0.2-1.3)
[2022-09-08 17:16] LABS: Partial Thromboplastin Time 22.5 sec (22.0-30.0); Prothrombin Time 10.7 sec (9.0-12.0)
--- NOTE | 2022-09-08 17:21 | XR ---
EXAMINATION TYPE: XR chest 2V DATE OF EXAM: 09/08/2022 4:52 PM COMPARISON: Chest radiographs from 08/06/2022 TECHNIQUE: XR chest 2V Frontal and lateral views of the chest. CLINICAL INDICATION:Female, 71 years old with history of difficulty breathing; FINDINGS: Lungs/Pleura: Prominent interstitial lung markings are seen scattered throughout the lungs with barbara ening of the diaphragm and increased lucency of the lung apices. No evidence of focal consolidation, pneumothorax or pleural effusion. Pulmonary vascularity: Unremarkable. Heart/mediastinum: Cardiomediastinal silhouette is unremarkable. Atherosclerotic calcifications are seen in the aorta. Musculoskeletal: No acute osseous pathology. IMPRESSION: 1. Chronic changes without acute pulmonary process. No significant change from prior. 2. COPD changes.
[2022-09-08] MEDS ORDERED: IPRATROPIUM-ALBUTEROL 3 ML NEB INHALATION PRN (18:14)
[2022-09-08] MEDS ORDERED: NALOXONE 0.4 MG/ML 1 ML VIAL IVP PRN (18:14)
[2022-09-08] MEDS ORDERED: methylPREDNISolone SOD SUCCI 125 MG/2 ML VIAL IV STA (18:14)
[2022-09-08] MEDS: IPRATROPIUM-ALBUTEROL 3 ML NEB INHALATION SCH (19:46)
[2022-09-08] MEDS: methylPREDNISolone SOD SUCCI 125 MG/2 ML VIAL IV SCH (23:57)
[2022-09-09] MEDS: methylPREDNISolone SOD SUCCI 125 MG/2 ML VIAL IV SCH ×2 (05:50→12:29)
[2022-09-09 08:04] VITALS: TEMP 98.4
[2022-09-09] MEDS: IPRATROPIUM-ALBUTEROL 3 ML NEB INHALATION SCH ×3 (08:07→15:27)
[2022-09-09] MEDS ORDERED: SYMBICORT 80-4.5 MCG INHALER INHALATION SCH (09:40)
[2022-09-09] MEDS ORDERED: DEXTROSE 50% SYRINGE 50 ML IVP PRN ×2 (09:42)
[2022-09-09] MEDS ORDERED: NICOTINE 14MG/24HR PATCH TRANSDERM STA (09:44)
[2022-09-09 11:40] LABS: African American GFR (CKD) >90 (>60 ml/min/1.73 sqM); Anion Gap 7 mmol/L; Blood Urea Nitrogen 11 mg/dL (7-17); Carbon Dioxide 32 mmol/L (22-30); Chloride 93 mmol/L (98-107); Glucose 201 mg/dL (74-99); Magnesium 1.7 mg/dL (1.6-2.3); Non-African American GFR(CKD) >90 (>60 ml/min/1.73 sqM); Potassium 4.3 mmol/L (3.5-5.1); Sodium 132 mmol/L (137-145)
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
[2022-09-09] MEDS ORDERED: ACETAMINOPHEN TAB 325 MG TAB PO PRN (12:07)
[2022-09-09 12:25] LABS: Glucose,Whole Blood 167 mg/dL (70-110)
[2022-09-09] MEDS ORDERED: INSULIN ASPART (NovoLOG) 100 UNIT/ML VIAL SQ SCH (12:30)
[2022-09-09 15:03] VITALS: BP 130/79; PULSE 103; RESP 19
== END 2022-09-09 15:35 | disposition home health service (06) | DRG 190 ==
LOC: EC 15:30 → 4SSUR 18:14
PROVIDERS: ADMIT Family Medicine; ATTEND Family Medicine
DX: J44.1 Chronic obstructive pulmonary disease with (acute) exacerbation (principal); J96.02 Acute respiratory failure with hypercapnia; I65.22 Occlusion and stenosis of left carotid artery; I10 Essential (primary) hypertension; K21.9 Gastro-esophageal reflux disease without esophagitis; M19.90 Unspecified osteoarthritis, unspecified site; F17.210 Nicotine dependence, cigarettes, uncomplicated; Z71.6 Tobacco abuse counseling; Z79.82 Long term (current) use of aspirin; Z79.02 Long term (current) use of antithrombotics/antiplatelets; Z79.899 Other long term (current) drug therapy; Z86.73 Personal history of transient ischemic attack (TIA), and cerebral infarction without residual deficits; Z86.718 Personal history of other venous thrombosis and embolism; Z79.51 Long term (current) use of inhaled steroids
CPT/HCPCS: 36415; 36600; 71046; 80048; 80053; 82805; 83605; 83735; 83880; 84484; 85025; 85379; 85610; 85730; 93005; 94640; 94760; 96374; 96376; 99285

== ENCOUNTER → 2023-09-25 | Outpatient (CLI) | payer MEDICARE ==
--- NOTE | 2023-09-25 16:31 | XR ---
EXAMINATION TYPE: XR chest 2V DATE OF EXAM: 09/25/2023 4:12 PM CLINICAL INDICATION:Female, 72 years old with history of PRE SURG; [facility] COMPARISON: Chest radiographs from 09/08/2022 TECHNIQUE: XR chest 2V Frontal view of the chest. FINDINGS: Lungs/Pleura: There is flattening of the diaphragm with increased lucency of the lungs. No evidence o f pneumothorax, pleural effusion or focal consolidation. Pulmonary vascularity: Unremarkable. Heart/mediastinum: Cardiomediastinal silhouette is unremarkable. Musculoskeletal: No acute osseous pathology. IMPRESSION: 1. No acute cardiopulmonary disease process. 2. COPD changes.
[2023-09-25 17:23] LABS: INR 0.9 (<1.2); Partial Thromboplastin Time 22.6 sec (22.0-30.0); Prothrombin Time 10.3 sec (10.0-12.5)
[2023-09-26 02:02] LABS: Appearance,Urine Clear (Clear); Bilirubin,Urine Negative (Negative); Blood,Urine Negative (Negative); Color,Urine Yellow (Yellow); Ketones,Urine Negative (Negative); Nitrite,Urine Negative (Negative); PH, Urine 5.5; Urobilinogen,Urine 0.2 E.U./DL
[2023-09-26 02:07] LABS: Bacteria,Urine None Seen (None Seen)
[2023-09-26 02:09] LABS: Basophils # (A) 0.06 X 10*3/uL (0.00-0.10); Basophils % (A) 0.5 %; Eosinophils % (A) 2.5 %; HCT 49.3 % (37.2-46.3); HGB 15.9 g/dL (12.0-15.0); Lymphocytes # (A) 2.92 X 10*3/uL (0.90-5.00); Lymphocytes % (A) 23.9 %; MCH 30.4 pg (27.0-32.0); MCHC 32.3 g/dL (32.0-37.0); MCV 94.3 FL (80.0-97.0); Mean Platelet Volume 11.1 FL (9.5-12.2); Monocytes # (A) 0.75 X 10*3/uL (0.20-1.00); Monocytes % (A) 6.1 %; NRBC Per 100 WBC 0 X 10*3/uL (0.00-0.01); Neutrophils # (A) 8.15 X 10*3/uL (1.80-7.70); Neutrophils % (A) 66.7 %; Platelet Count 211 X 10*3/uL (140-440); RBC 5.23 X 10*6/uL (4.10-5.20); RDW 14.1 % (11.5-14.5); WBC 12.22 X 10*3/uL (4.50-10.00)
[2023-09-26 02:23] LABS: BUN/Creat Ratio 25.83 Ratio (12.00-20.00); Blood Urea Nitrogen 15.5 mg/dL (9.0-27.0); Calcium 9.7 mg/dL (8.7-10.3); Chloride 101 mmol/L (96-109); Glucose 146 mg/dL (70-110); Sodium 141 mmol/L (135-145)
== END | disposition home or self-care (01) ==
LOC: LABPAT 15:32
PROVIDERS: ATTEND Orthopaedic Surgery Orthopaedic Surgery of the Spine
DX: Z01.818 Encounter for other preprocedural examination (principal); J44.9 Chronic obstructive pulmonary disease, unspecified; M54.10 Radiculopathy, site unspecified; M48.00 Spinal stenosis, site unspecified; Z22.322 Carrier or suspected carrier of Methicillin resistant Staphylococcus aureus
CPT/HCPCS: 71046; 80048; 81001; 85025; 85610; 85730; 86850; 86900; 86901; 87070; 93005

== ENCOUNTER → 2023-10-06 | Outpatient (CLI) | payer MEDICARE ==
[~2023-10-06] MED LIST changes: -DEXAMETHASONE SOD PHOSPHATE 10 MG/ML 1 ML VIAL IV ONE; -HYDROmorphone 0.5 MG/0.5 ML SYRINGE IVP PRN; -LACTATED RINGERS 1,000 ML IV SCH; -LIDOCAINE 1% 20 ML VIAL (10MG/ML) FOR IV START INTRADERMA PRN; -ONDANSETRON 4 MG/2 ML VIAL IVP ONE; +REGADENOSON 0.4 MG/5 ML SYRINGE IV PRN; -ceFAZolin IN SWFI 2 GM/20 ML SYRINGE IVP ONE
--- NOTE | 2023-10-06 15:44 | CA ---
Lexiscan Nuclear Stress Test Report Name: Arlen Mccabe Exam Date: 10/06/2023 10:17 Exam Location: [place] Stress Ht (in): 62 Wt (lb): 138 BSA: 1.63 Ordering Phys: Mariela Laguna Referring Phys: CARYN,, Technologist: Anne Soto RDCS Age: 72 Gender: F : 1950 Procedure CPT: Indications: Z01.818 PRE-PROCEDURAL SOB R06.02 ICD-10 Codes: Patient History: BETTINA, PALP, CVA, CHOL, TOB, COPD Medications: LIPITOR,,,,, Meds past 24 hrs: Pretest Chest Pain: STRESS TEST Lexiscan Protocol Exercise Duration (min:sec): 01:[address] Depressions (mm): Angina Score: Villalta Score: Resting HR (bpm): 73 Peak HR (bpm): 95 Resting BP (mmHg): 139 / 71 Peak BP (mmHg): 134 / 62 MPHR: 146 Target HR: 124 % MPHR: 65 METS: 1.0 Total Dose: Peak Dose: Atropine: Double Product: 06981 BP Response: Stress Termination: END OF DOSE Stress Symptoms: No chest pain or symptoms Stress Summary: ECG ANALYSIS Resting ECG: Stress ECG: CONCLUSIONS At baseline EKG showed normal sinus rhythm, normal axis, no significant ST or T wave abnormalities. Patient recieved IV infusion of Lexiscan 0.4mg and at peak infusion EKG showed no significant change from baseline. Conclusions: 1. Normal EKG response to Lexiscan infusion 2. Nuclear imaging to be reported separately. Dr. Ciro Burns DO (Electronically Signed) Final Date: 06 October 2023 15:43
--- NOTE | 2023-10-06 21:44 | NM ---
EXAMINATION TYPE: NM stress lexiscan cardiolite DATE OF EXAM: 10/06/2023 COMPARISON: NONE HISTORY: Preprocedure evaluation, short of breath TECHNIQUE: After the intravenous administration of 8.7 mCi Tc 99m Sestamibi - Cardiolite resting SPE CT images acquired 48 minutes post injection. At peak stress 23.4 mCi Tc 99m Sestamibi - Stress images obtained 40 minutes post injection The patient was stressed with 0.4mg Lexiscan. FINDINGS: No fixed defects are evident No reversible stress defects on Spect images Wall motion is normal Ejection fraction is calculated to be 70 %. IMPRESSION: 1. No suspicious stress-induced ischemic changes.
== END | disposition home or self-care (01) ==
LOC: RADNMMAIN 07:50
PROVIDERS: ATTEND Internal Medicine Cardiovascular Disease
DX: Z01.818 Encounter for other preprocedural examination (principal); R06.02 Shortness of breath
CPT/HCPCS: 93017; 78452; A9500; J2785

== ENCOUNTER → 2023-10-06 | Outpatient (CLI) | payer MEDICARE ==
--- NOTE | 2023-10-06 15:47 | CA ---
Transthoracic Echo Report Name: Arlen Mccabe Age: 72 Gender: F : 1950 Exam Date: 10/06/2023 10:19 Exam Location: [place] Echo Ht (in): 62 Wt (lb): 147 Ordering Physician: Kwan Lerma DO Attending/Referring Phys: Birgit Navas PAC Prenatal Teacher Ranjana Mae RDCS Procedure CPT: Indications: R01.1 cardiac murmur Cardiac Hx: Technical Quality: Fair Contrast 1: Total Dose (mL): Contrast 2: Total Dose (mL): MEASUREMENTS (Male / Female) Normal Values 2D ECHO LV Diastolic Diameter PLAX 4.3 cm 4.2 - 5.9 / 3.9 - 5.3 cm LV Systolic Diameter PLAX 2.8 cm IVS Diastolic Thickness 1.4 cm 0.6 - 1.0 / 0.6 - 0.9 cm LVPW Diastolic Thickness 1.2 cm 0.6 - 1.0 / 0.6 - 0.9 cm LV Relative Wall Thickness 0.6 RV Internal Dim ED PLAX 2.5 cm LVOT Diameter 1.9 cm LA Systolic Diameter LX 3.8 cm 3.0 - 4.0 / 2.7 - 3.8 cm LV Diastolic Volume MOD BP 31.5 cm??? 67 - 155 / 56 - 104 cm??? LV Systolic Volume MOD BP 10.5 cm??? 22 - 58 / 19 - 49 cm??? LV Ejection Fraction MOD BP 66.7 % >= 55 % LV Cardiac Index MOD BP 839.6 cm???/min???m??? LV Diastolic Volume MOD 4C 31.3 cm??? LV Systolic Volume MOD 4C 11.7 cm??? LV Ejection Fraction MOD 4C 62.7 % LV Cardiac Index MOD 4C 784.6 cm???/min???m??? LV Diastolic Length 4C 6.3 cm LV Systolic Length 4C 5.3 cm LV Diastolic Volume MOD 2C 32.7 cm??? LV Systolic Volume MOD 2C 9.3 cm??? LV Ejection Fraction MOD 2C 71.5 % LV Cardiac Index MOD 2C 935.7 cm???/min???m??? LV Diastolic Length 2C 6.3 cm LV Systolic Length 2C 5.5 cm M-MODE Aortic Root Diameter MM 3.0 cm LA Systolic Diameter MM 3.9 cm LA Ao Ratio MM 1.3 AV Cusp Separation MM 0.9 cm DOPPLER AV Peak Velocity 263.4 cm/s AV Peak Gradient 27.8 mmHg AV Mean Velocity 199.0 cm/s AV Mean Gradient 17.7 mmHg AV Velocity Time Integral 61.5 cm Mitral E Point Velocity 93.4 cm/s Mitral A Point Velocity 122.0 cm/s Mitral E to A Ratio 0.8 MV Deceleration Time 399.5 ms MV E' Velocity 5.6 cm/s Mitral E to MV E' Ratio 16.7 TR Peak Velocity 229.5 cm/s TR Peak Gradient 21.1 mmHg Right Ventricular Systolic Press 26.1 mmHg FINDINGS Left Ventricle Left ventricular ejection fraction is estimated at 55-60%. Moderately increased septal wall thickness. Mildly increased posterior wall thickness. No obvious regional wall motion abnormalities. Left ventricular cavity size normal. Right Ventricle Normal right ventricular size and function. Right ventricular systolic pressure within normal limits. Right Atrium Normal right atrial size. Left Atrium Normal left atrial size. Mitral Valve Thickened mitral valve without stenosis. Mitral annular calcification. Trace to mild mitral regurgitation. Aortic Valve Trileaflet aortic valve. Moderate aortic stenosis with a peak gradient of 35mmHg and a mean gradient of 21 mmHg. No aortic regurgitation. Tricuspid Valve Structurally normal tricuspid valve. Trace to mild tricuspid regurgitation. Pulmonic Valve Structurally normal pulmonic valve. No pulmonic stenosis. No pulmonic regurgitation. Pericardium No pericardial or pleural effusion. Aorta Normal size aortic root and proximal ascending aorta. CONCLUSIONS Left ventricular ejection fraction 55-60% RVSP 26 Mild mitral annular calcification Trace to mild mitral regurgitation Moderate aortic stenosis Trace to mild tricuspid regurgitation Previewed by: Dr. Ciro Burns DO (Electronically Signed) Final Date: 06 October 2023 15:46
== END | disposition home or self-care (01) ==
LOC: RADECHMAIN 09:34
PROVIDERS: ATTEND Family Medicine
DX: R01.1 Cardiac murmur, unspecified (principal); I08.0 Rheumatic disorders of both mitral and aortic valves
CPT/HCPCS: 93306

== ENCOUNTER 2023-11-04 05:45 | Inpatient (IN) | payer MEDICARE ==
[~2023-11-04 05:45] MED LIST changes: +CYCLOBENZAPRINE 5 MG TAB ONE; +ESCITALOPRAM 20 MG TAB ONE; -REGADENOSON 0.4 MG/5 ML SYRINGE IV PRN; +SODIUM CHLORIDE 0.9% 1,000 ML BAG ONE; +buPROPion XL 150 MG TAB.ER.24H PO ONE; +cloNIDine HCL 0.2 MG TAB ONE
[2023-11-04] MEDS ORDERED: ONDANSETRON 4 MG/2 ML VIAL ONE (06:29)
[2023-11-04] MEDS ORDERED: KETAMINE HCL IN 0.9 % NACL 50 MG/5 ML SYRINGE ONE (07:29)
[2023-11-04] MEDS ORDERED: fentaNYL (PF) 50 MCG/ML 2 ML AMP ONE (07:29)
[2023-11-04] MEDS ORDERED: ROCURONIUM 10 MG/ML (5 ML VIAL) IV ONE (07:29)
[2023-11-04] MEDS ORDERED: LIDOCAINE 1% INJ 10MG/ML (20 ML MDV) ONE (07:29)
[2023-11-04] MEDS ORDERED: SUCCINYLCHOLINE CHLORIDE 200 MG/10 ML VIAL IV ONE (07:29)
[2023-11-04] MEDS ORDERED: NEOSTIGMINE 1 MG/ML 10 ML VIAL ONE (07:29)
[2023-11-04] MEDS ORDERED: GLYCOPYRROLATE 0.2 MG/ML 2 ML VIAL ONE (07:29)
[2023-11-04] MEDS ORDERED: MIDAZOLAM 2 MG/2 ML VIAL ONE (07:29)
[2023-11-04] MEDS ORDERED: PROPOFOL 10 MG/ML 20 ML VIAL IV ONE (07:29)
[2023-11-04] MEDS ORDERED: HYDROmorphone 0.5 MG/0.5 ML SYRINGE ONE ×2 (10:52→11:21)
[2023-11-04] MEDS ORDERED: METOPROLOL TARTRATE 5 MG/5 ML VIAL IVP ONE (12:38)
[2023-11-04] MEDS ORDERED: IPRATROPIUM-ALBUTEROL 3 ML NEB ONE ×2 (18:39)
[2023-11-04] MEDS ORDERED: METOCLOPRAMIDE 5 MG/ML 2 ML VIAL ONE ×2 (21:02)
[2023-11-04] MEDS ORDERED: HYDROcodone/APAP 5-325MG 1 EACH TAB ONE ×2 (22:19)
[2023-11-05] MEDS ORDERED: SODIUM CHLORIDE 0.9% 50 ML BAG ONE (00:01)
[2023-11-05] MEDS ORDERED: IPRATROPIUM-ALBUTEROL 3 ML NEB ONE (00:01)
[2023-11-05] MEDS ORDERED: SODIUM CHLORIDE 0.9% 1,000 ML BAG ONE (00:01)
[2023-11-05] MEDS ORDERED: ESCITALOPRAM 20 MG TAB ONE (00:01)
[2023-11-05] MEDS ORDERED: CYCLOBENZAPRINE 5 MG TAB ONE (00:01)
[2023-11-05] MEDS ORDERED: ceFAZolin 1,000 MG VIAL ONE (00:01)
[2023-11-05] MEDS ORDERED: buPROPion XL 150 MG TAB.ER.24H PO ONE (00:01)
[2023-11-05] MEDS ORDERED: cloNIDine HCL 0.1 MG TAB ONE (00:55)
[2023-11-05] MEDS ORDERED: methylPREDNISolone SOD SUCCI 125 MG/2 ML VIAL ONE ×2 (00:55→06:35)
[2023-11-05] MEDS ORDERED: HYDROcodone/APAP 5-325MG 1 EACH TAB ONE ×6 (03:30→12:25)
[2023-11-05] MEDS ORDERED: CLOPIDOGREL 75 MG TAB ONE ×2 (12:17)
[2023-11-05] MEDS ORDERED: ATORVASTATIN 40 MG TAB ONE (23:07)
[2023-11-06] MEDS ORDERED: SODIUM CHLORIDE 0.9% 50 ML BAG ONE (00:01)
[2023-11-06] MEDS ORDERED: buPROPion XL 150 MG TAB.ER.24H PO ONE (00:01)
[2023-11-06] MEDS ORDERED: ESCITALOPRAM 20 MG TAB ONE (00:01)
[2023-11-06] MEDS ORDERED: ceFAZolin 1,000 MG VIAL ONE (00:01)
[2023-11-06] MEDS ORDERED: IPRATROPIUM-ALBUTEROL 3 ML NEB ONE ×3 (00:01→18:17)
[2023-11-06] MEDS ORDERED: HYDROcodone/APAP 5-325MG 1 EACH TAB ONE ×6 (01:01→20:08)
[2023-11-06] MEDS ORDERED: cloNIDine HCL 0.1 MG TAB ONE ×4 (01:01→20:07)
[2023-11-06] MEDS ORDERED: predniSONE 20 MG TAB ONE (10:50)
[2023-11-06] MEDS ORDERED: MAGNESIUM HYDROXIDE 2,400 MG/30 ML CUP ONE (10:50)
[2023-11-06] MEDS ORDERED: CLOPIDOGREL 75 MG TAB ONE ×2 (10:50)
[2023-11-06] MEDS ORDERED: SENNOSIDES-DOCUSATE SODIUM 1 EACH TAB PO ONE ×2 (10:59)
[2023-11-06] MEDS ORDERED: ATORVASTATIN 40 MG TAB ONE (20:07)
[2023-11-07] MEDS ORDERED: IPRATROPIUM-ALBUTEROL 3 ML NEB ONE ×4 (00:01→06:47)
[2023-11-07] MEDS ORDERED: ESCITALOPRAM 20 MG TAB ONE (00:01)
[2023-11-07] MEDS ORDERED: buPROPion XL 150 MG TAB.ER.24H PO ONE (00:01)
[2023-11-07] MEDS ORDERED: HYDROcodone/APAP 5-325MG 1 EACH TAB ONE ×8 (03:23→22:48)
[2023-11-07] MEDS ORDERED: cloNIDine HCL 0.1 MG TAB ONE ×3 (05:49→21:14)
[2023-11-07] MEDS ORDERED: POTASSIUM CHLORIDE ER 20 MEQ TAB.ER PO ONE ×2 (06:18)
[2023-11-07] MEDS ORDERED: ATORVASTATIN 40 MG TAB ONE (09:27)
[2023-11-07] MEDS ORDERED: predniSONE 20 MG TAB ONE (09:28)
[2023-11-07] MEDS ORDERED: CLOPIDOGREL 75 MG TAB ONE ×2 (09:28)
[2023-11-08] MEDS ORDERED: buPROPion XL 150 MG TAB.ER.24H PO ONE (00:01)
[2023-11-08] MEDS ORDERED: SODIUM CHLORIDE 0.9% 1,000 ML BAG ONE (00:01)
[2023-11-08] MEDS ORDERED: ESCITALOPRAM 20 MG TAB ONE (00:01)
[2023-11-08] MEDS ORDERED: cloNIDine HCL 0.2 MG TAB ONE (00:01)
[2023-11-08] MEDS ORDERED: HYDROcodone/APAP 5-325MG 1 EACH TAB ONE ×2 (02:46)
[2023-11-08] MEDS ORDERED: cloNIDine HCL 0.1 MG TAB ONE ×4 (03:27→22:17)
[2023-11-08] MEDS ORDERED: IPRATROPIUM-ALBUTEROL 3 ML NEB ONE ×2 (07:53)
[2023-11-08] MEDS ORDERED: ATORVASTATIN 40 MG TAB ONE (10:47)
[2023-11-08] MEDS ORDERED: CLOPIDOGREL 75 MG TAB ONE ×2 (10:47)
[2023-11-08] MEDS ORDERED: HYDROcodone/APAP 10-325MG 1 EACH TAB ONE ×6 (10:48→22:18)
[2023-11-08] MEDS ORDERED: predniSONE 10 MG TAB ONE (10:48)
[2023-11-09] MEDS ORDERED: amLODIPine 5 MG TAB ONE ×4 (03:21→22:29)
[2023-11-09] MEDS ORDERED: IPRATROPIUM-ALBUTEROL 3 ML NEB ONE ×2 (05:11)
[2023-11-09] MEDS ORDERED: cloNIDine HCL 0.1 MG TAB ONE ×4 (05:25→22:29)
[2023-11-09] MEDS ORDERED: HYDROcodone/APAP 10-325MG 1 EACH TAB ONE ×6 (05:25→17:47)
[2023-11-09] MEDS ORDERED: predniSONE 10 MG TAB ONE ×2 (10:57)
[2023-11-09] MEDS ORDERED: CLOPIDOGREL 75 MG TAB ONE ×2 (10:57)
[2023-11-09] MEDS ORDERED: ATORVASTATIN 40 MG TAB ONE ×2 (10:58)
[2023-11-10] MEDS ORDERED: cloNIDine HCL 0.1 MG TAB ONE ×6 (05:56→21:29)
[2023-11-10] MEDS ORDERED: HYDROcodone/APAP 5-325MG 1 EACH TAB ONE ×6 (05:56→21:29)
[2023-11-10] MEDS ORDERED: IPRATROPIUM-ALBUTEROL 3 ML NEB ONE ×2 (06:05)
[2023-11-10] MEDS ORDERED: predniSONE 10 MG TAB ONE ×2 (08:18)
[2023-11-10] MEDS ORDERED: CLOPIDOGREL 75 MG TAB ONE ×2 (08:18)
[2023-11-10] MEDS ORDERED: ATORVASTATIN 40 MG TAB ONE ×4 (08:18→08:35)
[2023-11-10] MEDS ORDERED: MULTIVITAMINS, THERA 1 EACH TAB ONE ×2 (08:23)
[2023-11-10] MEDS ORDERED: PIPERACILLIN-TAZOBACTAM 3.375 GM VIAL ONE ×2 (12:36)
[2023-11-10] MEDS ORDERED: amLODIPine 5 MG TAB ONE ×2 (21:29)
[2023-11-11] MEDS ORDERED: HYDROcodone/APAP 5-325MG 1 EACH TAB ONE ×2 (03:00)
[2023-11-11] MEDS ORDERED: cloNIDine HCL 0.1 MG TAB ONE ×2 (07:13)
[2023-11-11] MEDS ORDERED: HYDROcodone/APAP 10-325MG 1 EACH TAB ONE ×2 (10:00)
[2023-11-11] MEDS ORDERED: ATORVASTATIN 40 MG TAB ONE ×2 (10:00)
[2023-11-11] MEDS ORDERED: CLOPIDOGREL 75 MG TAB ONE ×2 (10:00)
[2023-11-11] MEDS ORDERED: predniSONE 20 MG TAB ONE ×2 (10:00)
--- NOTE | 2023-11-13 15:53 | OP ---
OPERATIVE REPORT DATE OF SERVICE : 11/04/2023 PREOPERATIVE DIAGNOSES: 1. Severe stenosis, L4-L5. 2. Listhesis, L4-L5. 3. Lower extremity weakness. 4. Radiculopathy, bilateral lower extremities. 5. Neurogenic claudication. 6. Facet arthrosis. 7. Low back pain. 8. Degenerative disk disease. POSTOPERATIVE DIAGNOSIS: 1. Severe stenosis, L4-L5. 2. Listhesis, L4-L5. 3. Lower extremity weakness. 4. Radiculopathy, bilateral lower extremities. 5. Neurogenic claudication. 6. Facet arthrosis. 7. Low back pain. 8. Degenerative disk disease. PROCEDURES: 1. Minimally invasive posterior lateral decompression and fusion, L4-L5, with transforaminal interbody fusion, L4-L5, with placement of interbody PEEK cage. 2. Minimally invasive procedure with use of CT guidance navigation intraoperatively. 3. Laminectomy decompression with bilateral foraminotomy and wide decompression, L4- L5. 4. Diskectomy for decompression as well as beyond that of preparation for fusion, L4- L5. 5. Harvesting of local autologous bone graft. 6. Harvesting of bone marrow aspirate via pedicle of L4 on the right. 7. Use of local autogenous bone graft and supplemental allograft bone graft. [employer] MANAGER: DOMENIC Fang, who was present throughout the entirety of the case for assistance during positioning, dissection, exposure, visualization, decompression, placement of hardware, and closure. COMPLICATIONS: None apparent. ESTIMATED BLOOD LOSS: Approximately 200 cc. COMPONENTS IMPLANTED: K2M Eva minimally invasive [place] pedicle screw system with use of 4 screws measuring 6.5 x 45 mm and 2 rods measuring 40 mm in length with 1 PEEK interbody cage measuring 6 mm with local autologous bone graft and supplemental bone graft matrix, DBM bone putty. DISPOSITION: To recovery room in good stable condition. SPECIMEN: None. OPERATIVE INDICATIONS: The patient is a 73-year-old female, who had a long-standing history of low back pain and lower extremity radicular pain and claudication. The patient was found to have severe stenosis with listhesis at L4-L5, which correlated well with her low back, lower extremity symptoms. The patient had been through extensive conservative care, however, was having continued debility and significant problems which are worsening for her. Different treatment options including continued conservative care and possibly surgical intervention were explained to her. The risks and complications of surgery including, but not limited to the risk of bleeding, risk of infection, risk of need for further surgery, risk of decreased or loss of motion, loss of function, malunion, nonunion, hardware failure, nerve damage, dural tear, paralysis, heart attack, blindness, as well as the fact that surgery may not alleviate her symptoms were explained to her and all her questions were answered to best of our ability in language she understands. The patient elected to proceed with surgical intervention. Signed informed consent. OPERATIVE SUMMARY: After obtaining informed consent, evaluation by Anesthesia, preoperative medical evaluation and clearance, patient was identified in the preop holding area and the surgical site was marked. She was given prophylactic IV antibiotics, brought to the operating room, where she was sedated and intubated by anesthesia in standard fashion without any complications. Once her airway and C-spine were secured, she was gently rolled in prone position on a well-padded, well-molded frame on a Ben table keeping any bony prominences and pressure points well padded in her prone position with her head and neck in good neutral alignment and position and airway secured. When she was well positioned, her low back was prepped and draped in normal standard fashion in keystone protocol. Appropriate time-out was completed, and we proceeded with surgery. The local wound area was infiltrated local anesthetic and I was able to establish 2 small stab incisions for placement of bony posts at her right iliac crest. I was able to attach the C-arm guidance Siemens navigation system transponder to the posts and the area was draped appropriately and an intraoperative CT guidance spin was performed with the Siemens navigation system. Once this was completed, we were able to dissect down. I made 2 separate incisions at the paramedian and midline approach at L4-L5, approximately 2.5 cm each. I was able to dissect down to the facet joints at L4 and L5, and using CT-guided navigation system and Jamshidi needle, I was able to establish the pedicle holes at L4 and L5 bilaterally. This was done with navigation system intraoperatively to ensure excellent alignment and position. Guidewires were placed and C-arm was again brought in to show excellent alignment and position of the guidewires and we were able to place pedicle screws x4 at L4 and L5 bilaterally. This was done under C-arm guidance with good alignment and good position with excellent bony purchase. Guidewires were able to be removed. The screws were stimulated and found to have no evidence of stimulation with NIM monitoring at over 20 milliamps. We were then able to proceed with dissection. I proceeded primary dissection on the left side. I was able to dissect down, placed appropriate retractors and do a broad laminectomy with combination of high-speed bur, curettes, and Kerrison rongeur, I was able to get a wide decompression on the left side and do a full facetectomy on that side to gain access to the disk space. I was able to cross the midline and do further decompression across the midline into the right neuroforamen and get excellent central and bilateral foraminal decompression. Any of the bone that was removed was saved and stripped and morcellized for local autogenous bone graft. With exposure to the disk space, I was able to protect neurologic structures. We had excellent decompression of the neurologic structures dorsally. I was then able to note that some protrusion was noted from the disk and I performed a diskectomy for decompression. Further diskectomy was performed for preparation of the disk space for fusion. I was able to use a combination of curettes and rasps and scrapers to get good preparation of the disk space itself. Once this was performed, the wound was copiously irrigated and suction dried, as it had been done periodically throughout the case. There was no evidence of any dural tear or leak. I was then able to prepare the disk and place the morselized bone graft into the disk space as well as into the appropriate size cage. The cage was placed in good alignment and good position, keeping the neurologic structures safe of any pressure. With the cage in place. The wound was again irrigated, suctioned dry. It had good alignment and good position. There was a small superficial abrasion over the dura at L4-L5. There was no leak and no leaking fluid. I decided to place a small amount of Tisseel over the area and there was no evidence of any leak. There was good decompression noted. We were able to proceed. On the right side, I was able to dissect down over the facet joint that had significant facet arthritis and osteophytes were removed. I took a drill and bur to scuff the facet joint, which had significant arthritic change. I was able to pack that joint with local autologous bone graft and then allograft bone graft. After this, I was then able to place rods bilaterally. They were contoured and bend, placed appropriately. Cap screws were placed appropriately and torqued down appropriately. With this completed, the construct was checked, found to be stable. There was no evidence of any dural tear or leak. The structure was stable with excellent decompression. Final images were taken, which showed excellent alignment and position of the hardware at the appropriate levels and we were able to proceed with closure. Fascial layer was closed with #1 Vicryl for watertight closure. We had good hemostasis. The wound was irrigated, suctioned dry. Subcutaneous tissue was closed with 0 Vicryl, and subcuticular tissue closed with 4-0 Vicryl. Wound was cleaned, dried, and dressed with glue and appropriate dressing. The drapes were taken down. The patient was gently rolled back to supine position onto her hospital bed. Woken up by Anesthesia, extubated, brought to recovery room in good, stable condition. She will be able to be admitted for medical management, pain control, prophylactic antibiotics, and close monitoring. MMODL / IJN: [id number] /
--- NOTE | 2023-12-08 11:55 | XR ---
Site ID [facility] Arlen Yost ID [id number] Order # Procedure CHEST PORTABLE 1 VIEW EXAMINATION TYPE: XR chest 1V DATE OF EXAM: 11/05/2023 8:32 AM CLINICAL INDICATION: Shortness of breath COMPARISON: THIS EXAM WAS READ DURING PACS DOWNTIME, NO PRIORS AVAILABLE. TECHNIQUE: XR chest 1V Frontal view of the chest. FINDINGS: Lungs/Pleura: There is no evidence of pleural effusion, focal consolidation, or pneumothorax. Pulmonary vascularity: Unremarkable. Heart/mediastinum: Cardiomediastinal silhouette is enlarged. Atherosclerotic calcifications are seen in the aorta. Musculoskeletal: No acute osseous pathology. IMPRESSION: No acute cardiopulmonary disease/process.
== END 2023-11-11 12:54 | disposition home health service (06) | DRG 459 ==
LOC: OR 05:45 → 2SICU 13:05
PROVIDERS: ADMIT Orthopaedic Surgery Orthopaedic Surgery of the Spine; ATTEND Orthopaedic Surgery Orthopaedic Surgery of the Spine
PROC: 0ST20ZZ Resection of Lumbar Vertebral Disc, Open Approach (ICD-10-PCS; 2023-11-04)
PROC: 01NB0ZZ Release Lumbar Nerve, Open Approach (ICD-10-PCS; 2023-11-04)
PROC: 07DS0ZZ Extraction of Vertebral Bone Marrow, Open Approach (ICD-10-PCS; 2023-11-04)
PROC: 5A09357 Assistance with Respiratory Ventilation, Less than 24 Consecutive Hours, Continuous Positive Airway Pressure (ICD-10-PCS; 2023-11-04)
PROC: 0SG00AJ Fusion of Lumbar Vertebral Joint with Interbody Fusion Device, Posterior Approach, Anterior Column, Open Approach (ICD-10-PCS; principal; 2023-11-04 07:30)
DX: M48.062 Spinal stenosis, lumbar region with neurogenic claudication (principal); J96.21 Acute and chronic respiratory failure with hypoxia; J96.22 Acute and chronic respiratory failure with hypercapnia; J44.1 Chronic obstructive pulmonary disease with (acute) exacerbation; G81.91 Hemiplegia, unspecified affecting right dominant side; Z99.81 Dependence on supplemental oxygen; F32.A Depression, unspecified; I10 Essential (primary) hypertension; I65.22 Occlusion and stenosis of left carotid artery; M43.16 Spondylolisthesis, lumbar region; M47.26 Other spondylosis with radiculopathy, lumbar region; E78.2 Mixed hyperlipidemia; K59.00 Constipation, unspecified; M51.16 Intervertebral disc disorders with radiculopathy, lumbar region; Z79.02 Long term (current) use of antithrombotics/antiplatelets; Z79.899 Other long term (current) drug therapy; Z79.51 Long term (current) use of inhaled steroids; Z87.891 Personal history of nicotine dependence
CPT/HCPCS: 36600; 94640; 94660; 94760

== ENCOUNTER 2023-11-17 20:02 | Emergency (ER) | payer MEDICARE ==
[2023-11-17 20:10] VITALS: RESP 18
[2023-11-17 20:30] LABS: Basophils % (A) 0 %; Eosinophils # (A) 0.2 k/uL (0-0.7); Eosinophils % (A) 2 %; HCT 44.2 % (34.0-46.0); HGB 14.3 gm/dL (11.4-16.0); Lymphocytes # (A) 2.2 k/uL (1.0-4.8); Lymphocytes % (A) 19 %; MCH 30.7 pg (25.0-35.0); MCHC 32.3 g/dL (31.0-37.0); Mean Platelet Volume 8.2; Monocytes # (A) 0.7 k/uL (0-1.0); Monocytes % (A) 6 %; Neutrophils # (A) 8.7 k/uL (1.3-7.7); Neutrophils % (A) 72 %; Platelet Count 246 k/uL (150-450); RBC 4.66 m/uL (3.80-5.40)
[2023-11-17 20:42] LABS: Partial Thromboplastin Time 22.5 sec (22.0-30.0); Prothrombin Time 10.7 sec (10.0-12.5)
--- NOTE | 2023-11-17 20:43 | XR ---
EXAMINATION TYPE: XR chest 2V DATE OF EXAM: 11/17/2023 COMPARISON: 09/25/2023 INDICATION: Chest pain TECHNIQUE: Frontal and lateral views of the chest are obtained. FINDINGS: The heart size is normal. The pulmonary vasculature is normal. Small posterior left pleural effusion is present. There may be some mild infiltrate in the right uppe r lung field. Correlate for atelectasis or mild pneumonia. IMPRESSION: 1. All posterior left pleural effusion. 2. Clinical correlation recommended for right upper lobe atelectasis or pneumonia.
[2023-11-17 20:45] LABS: ALT 14 U/L (4-34); African American GFR (CKD) >90 (>60 ml/min/1.73 sqM); Albumin 3.3 g/dL (3.5-5.0); Anion Gap 3 mmol/L; Blood Urea Nitrogen 14 mg/dL (7-17); Calcium 9.2 mg/dL (8.4-10.2); Carbon Dioxide 31 mmol/L (22-30); Chloride 102 mmol/L (98-107); Glucose 82 mg/dL (74-99); Non-African American GFR(CKD) >90 (>60 ml/min/1.73 sqM); Sodium 136 mmol/L (137-145); Total Bilirubin 0.8 mg/dL (0.2-1.3); Total Protein 5.8 g/dL (6.3-8.2)
[2023-11-17 20:51] LABS: NT-Pro-B-Type Natriuretic Pept 322 pg/mL
[2023-11-17 20:54] LABS: AST 22 U/L (14-36); Alkaline Phosphatase 69 U/L (38-126); Magnesium 1.7 mg/dL (1.6-2.3)
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
[2023-11-17] MEDS: ACETAMINOPHEN TAB 325 MG TAB PO STA (22:37)
[2023-11-18 00:07] VITALS: BP 136/69; PULSE 64; TEMP 97.8
== END 2023-11-18 00:42 | disposition home or self-care (01) ==
LOC: EC 20:02
DX: R07.9 Chest pain, unspecified
CPT/HCPCS: 36415; 71046; 80053; 83735; 83880; 84484; 85025; 85610; 85730; 93005; 99285

== ENCOUNTER 2024-06-06 14:31 | Emergency (ER) | payer MEDICARE ==
[2024-06-06 15:20] VITALS: TEMP 97.8
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
[2024-06-06 16:59] LABS: Anisocytosis Slight; Basophils % (A) 0 %; Eosinophils # (A) 0.2 k/uL (0-0.7); Eosinophils % (A) 2 %; HCT 46.7 % (34.0-46.0); HGB 14.4 gm/dL (11.4-16.0); Lymphocytes # (A) 1.7 k/uL (1.0-4.8); Lymphocytes % (A) 20 %; MCH 28.7 pg (25.0-35.0); MCHC 30.9 g/dL (31.0-37.0); MCV 92.9 fL (80.0-100.0); Mean Platelet Volume 9.6; Monocytes # (A) 0.4 k/uL (0-1.0); Monocytes % (A) 5 %; Neutrophils # (A) 6.3 k/uL (1.3-7.7); Neutrophils % (A) 72 %; RBC 5.03 m/uL (3.80-5.40); RDW 16.3 % (11.5-15.5); WBC 8.7 k/uL (3.8-10.6)
[2024-06-06 17:13] LABS: ALT 30 U/L (4-34); AST 25 U/L (14-36); African American GFR (CKD) >90 (>60 ml/min/1.73 sqM); Albumin 3.6 g/dL (3.5-5.0); Alkaline Phosphatase 107 U/L (38-126); Amylase <30 U/L (30-110); Anion Gap 5 mmol/L; Blood Urea Nitrogen 13 mg/dL (7-17); Calcium 9.4 mg/dL (8.4-10.2); Carbon Dioxide 30 mmol/L (22-30); Chloride 103 mmol/L (98-107); Glucose 129 mg/dL (74-99); Lipase 21 U/L (23-300); Non-African American GFR(CKD) >90 (>60 ml/min/1.73 sqM); Potassium 3.6 mmol/L (3.5-5.1); Sodium 138 mmol/L (137-145); Total Bilirubin 0.6 mg/dL (0.2-1.3); Total Protein 6.3 g/dL (6.3-8.2)
[2024-06-06 17:55] LABS: Platelet Count 98 k/uL (150-450)
--- NOTE | 2024-06-06 19:35 | CT ---
EXAMINATION TYPE: CT abdomen pelvis w con DATE OF EXAM: 06/06/2024 6:48 PM COMPARISON: 11/01/2019 CLINICAL INDICATION: Female, 73 years old with history of abdominal pain; abdominal pain, bloating TECHNIQUE: Axial CT abdomen pelvis w con;Sagittal and coronal reformats were created on a separate w orkstation. Contrast used:100 ml mL of Isovue 300 with IV Contrast, (none if empty) Oral contrast used: without Oral Contrast (none if empty) CT DLP: 836 mGycm, Automated exposure control for dose reduction was used. FINDINGS: LOWER CHEST: Moderate severe coronary artery atherosclerosis. As a metastatic lymph node measuring 13 mm in short axis near the distal esophagus. ABDOMEN LIVER: geographic area of decreased enhancement possibly secondary to metastatic disease versus alter ed perfusion. GALLBLADDER AND BILE DUCTS: Dilated extra hepatic and central intrahepatic ducts. PANCREAS: Low attenuating nonenhancing area in the pancreatic head neck measuring 37 x 34 mm. mm with upstream dilation of the pancreatic tail. SPLEEN: Unremarkable. ADRENAL GLANDS: Unremarkable. KIDNEYS AND URETERS: No evidence of hydronephrosis or renal calculus. The ureters are unremarkable. The left kidney is in the pelvis unclear if this is surgical or anatomic variant PELVIS BLADDER: No evidence for wall thickening or mass given limitations of exam. REPRODUCTIVE: Unremarkable. ABDOMEN & PELVIS STOMACH AND BOWEL: No evidence of bowel obstruction. Small hiatal hernia is present. PERITONEUM/RETROPERITONEUM: No evidence of pneumoperitoneum or free fluid. VASCULATURE: No evidence of aortic aneurysm. High-grade stenosis of the portal vein as it crosses the mass series 201 image 26 through 28. The right hepatic artery is thought to also be occluded seconda ry to mass. This accounts for the altered perfusion abnormality of the right hepatic lobe. MUSCULOSKELETAL: No acute osseous abnormalities. Moderate disc degeneration changes are present throu ghout the thoracolumbar spine. Compression deformity to T10 vertebral body with 50% height loss anter iorly. Fixation hardware at L4-L5 appears intact. No evidence of significant retropulsion at the T10 level. No significant spinal canal neural foraminal stenosis. LYMPH NODES: Suspicious retroperitoneal lymph nodes are present. Example includes 10 mm short axis se fernando 201 image 40. SOFT TISSUE/ABDOMINAL WALL: Right inguinal hernia containing fluid an fat. IMPRESSION: 1. Evidence of pancreatic head neck 37 x 34 mm mass with upstream dilation of the pancreatic duct co ncerning for malignancy. There is at least one metastatic lymph node near the distal esophagus. There is also retroperitoneal lymph nodes and obstruction of the biliary system. 2. high-grade narrowing of the portal vein as it crosses the mass possibly due to invasion of mass i nto the the vessel rahman. 3. Suspected occlusion of the right hepatic artery as it crosses through the mass. 4. Perfusion abnormality in the medial liver possibly secondary to vascular shunting versus underlyi ng mass not excluded. 5. Extra hepatic and intrahepatic biliary dilation secondary to #1. 4. Right inguinal hernia containing fluid an fat. 5. T10 vertebral body compression deformity with 50% loss anteriorly. [facility], , 06/06/2024 7:33 PM
[2024-06-06] MEDS: ACETAMINOPHEN TAB 325 MG TAB PO STA (20:05)
[2024-06-06 20:56] VITALS: BP 152/78; PULSE 80; RESP 18
== END 2024-06-06 20:58 | disposition home or self-care (01) ==
LOC: EC 14:31
DX: C25.9 Malignant neoplasm of pancreas, unspecified (principal); F17.200 Nicotine dependence, unspecified, uncomplicated
CPT/HCPCS: 36415; 80053; 82150; 83690; 85025; 74177; 99284; Q9967

== ENCOUNTER 2024-06-11 15:21 | Inpatient (IN) | payer MEDICARE ==
[2024-06-11 16:01] LABS: Basophils % (A) 0 %; Eosinophils % (A) 1 %; HCT 39.1 % (34.0-46.0); HGB 11.9 gm/dL (11.4-16.0); Hypochromasia Marked; Lymphocytes # (A) 0.8 k/uL (1.0-4.8); Lymphocytes % (A) 9 %; MCH 28.8 pg (25.0-35.0); MCHC 30.5 g/dL (31.0-37.0); MCV 94.6 fL (80.0-100.0); Mean Platelet Volume 9.3; Monocytes # (A) 0.3 k/uL (0-1.0); Monocytes % (A) 3 %; Neutrophils # (A) 8.4 k/uL (1.3-7.7); Neutrophils % (A) 87 %; RBC 4.13 m/uL (3.80-5.40); RDW 15.9 % (11.5-15.5); WBC 9.7 k/uL (3.8-10.6)
--- NOTE | 2024-06-11 16:01 | XR ---
EXAMINATION TYPE: XR chest 1V portable DATE OF EXAM: 06/11/2024 3:51 PM COMPARISON: None. CLINICAL INDICATION: Female, 73 years old with history of Short of breath, TECHNIQUE: XR chest 1V portable views of the chest are obtained. FINDINGS: Demonstrated are scattered senescent parenchymal change. Endotracheal tube demonstrates its distal t ip 6 cm from the ian. NG tube is seen coursing into the stomach. There is no evidence for focal infiltrate. There is peribronchial cuffing which can be seen in patien ts with bronchitis. Correlate clinically. The heart is stable. Hilar and mediastinal structures are within normal limits. Degenerative changes are seen of the dorsal spine. IMPRESSION: 1. There is peribronchial cuffing which can be seen in patients with bronchitis. Correlate clinicall y. [facility], , 06/11/2024 3:58 PM
[2024-06-11 16:11] LABS: INR 1.4 (<1.2)
--- NOTE | 2024-06-11 16:11 | CT ---
EXAMINATION TYPE: CT brain wo con DATE OF EXAM: 06/11/2024 COMPARISON: 08/06/2022 CLINICAL INDICATION: Female, 73 years old with history of Unresponsive; PHH, unresponsive TECHNIQUE: CT scan of the head is performed without contrast. CT DLP: 1182.[address] CTDI: mGy Automated exposure control for dose reduction was used. FINDINGS: There is no acute intracranial hemorrhage or midline shift identified. There is diffuse v entricular and sulcal prominence consistent with diffuse age-related cerebral atrophy. Small remote i nsult left frontal lobe. Focal calcification high right frontal lobe. Both findings are stable relati ve to prior examination. There is low-attenuation in the periventricular white matter consistent with chronic small vessel ischemic change. The globes are intact and the visualized sinuses are clear. IMPRESSION: No acute intracranial hemorrhage or midline shift. There is diffuse age-related cerebra l atrophy and chronic small vessel ischemic change noted. [facility], , 06/11/2024 4:08 PM
[2024-06-11 16:12] LABS: African American GFR (CKD) >90 (>60 ml/min/1.73 sqM); Albumin 2.8 g/dL (3.5-5.0); Alkaline Phosphatase 201 U/L (38-126); Anion Gap 13 mmol/L; Blood Urea Nitrogen 9 mg/dL (7-17); Calcium 7.8 mg/dL (8.4-10.2); Carbon Dioxide 20 mmol/L (22-30); Chloride 102 mmol/L (98-107); Glucose 182 mg/dL (74-99); Non-African American GFR(CKD) 89 (>60 ml/min/1.73 sqM); Prothrombin Time 14.6 sec (10.0-12.5); Sodium 135 mmol/L (137-145); Total Bilirubin 0.6 mg/dL (0.2-1.3); Total Protein 5.2 g/dL (6.3-8.2)
[2024-06-11 16:14] LABS: Magnesium 1.8 mg/dL (1.6-2.3); Potassium 3.9 mmol/L (3.5-5.1)
[2024-06-11 16:17] LABS: Platelet Count 89 k/uL (150-450)
[2024-06-11 16:17] LABS: ABG Base Excess -8.8 mmol/L; ABG HCO3 20 mmol/L (21-25); ABG Oxygen Saturation 97.8 % (94-97); ABG PCO2 57 mmHg (35-45); ABG TCO2 22 mmol/L (19-24); Allen Test Performed? Yes
--- NOTE | 2024-06-11 16:20 | CT ---
EXAMINATION TYPE: CT chest angio for PE DATE OF EXAM: 06/11/2024 COMPARISON: CLINICAL INDICATION: Female, 73 years old with history of Unresponsive; PHH, unresponsive, SOB or DUSTIN N TECHNIQUE: Ct angiogram of the chest performed with with IV Contrast, patient injected with 100 mL of Isovue 370 . MIP images are created and reviewed. CT DLP: 336.[address] CTDI: mGy Automated exposure control for dose reduction was used. FINDINGS: LUNGS: Small patchy infiltrate left upper lobe medially. Scattered groundglass infiltrates within the upper lobes may reflect acute inflammatory process. Endotracheal and NG tubes appear to be appropria tely placed. There is no pleural effusion or pneumothorax seen. The tracheobronchial tree is patent. MEDIASTINUM: There is satisfactory enhancement of the pulmonary artery and its branches, there is no CT evidence for pulmonary embolism. There are no greater than 1 cm hilar or mediastinal lymph nodes. No pericardial effusion is seen. HEART: The heart is enlarged.. No significant coronary artery calcifications. OTHER: Upper abdominal ascites. Previously described compression fracture thoracic spine appears to be chronic in nature. IMPRESSION: 1. No evidence for pulmonary embolism. 2.Small patchy infiltrate left upper lobe medially. Scattered groundglass infiltrates within the uppe r lobes may reflect acute inflammatory process. Endotracheal and NG tubes appear to be appropriately placed. Follow-up recommendations for incidental pulmonary nodules are per [employer] or [employer]. [facility], , 06/11/2024 4:17 PM
[2024-06-11 16:24] LABS: ABG PH 7.15 (7.35-7.45); ABG PO2 >420 mmHg (83-108)
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
[2024-06-11 16:31] LABS: ALT 98 U/L (4-34); AST 132 U/L (14-36)
[2024-06-11] MEDS: LORazepam 2 MG/ML INJ IV STA (16:36)
--- NOTE | 2024-06-11 16:56 | XR ---
EXAMINATION TYPE: XR chest 1V confirm line [facility] DATE OF EXAM: 06/11/2024 COMPARISON: Earlier in the day CLINICAL INDICATION: Female, 73 years old with history of Line placement; TECHNIQUE: Single frontal view of the chest is obtained. FINDINGS: Endotracheal and NG tubes are appropriately placed. No focal infiltrate. Bronchial cuffing noted. There is no focal air space opacity, pleural effusion, or pneumothorax seen. The cardiac silh ouette size is within normal limits. The osseous structures are intact. IMPRESSION: Essentially stable chest [facility], , 06/11/2024 4:54 PM
[2024-06-11] MEDS: SODIUM CHLORIDE 0.9% 1,000 ML IV ONE (17:24)
[2024-06-11] MEDS: ASPIRIN 300 MG SUPP RECTAL STA (18:42)
[2024-06-11] MEDS: HEPARIN SODIUM 1,000 UN/ML (10ML VL) IV ONE (18:44)
[2024-06-11] MEDS: HEPARIN SOD,PORK IN 0.45% NACL 25,000 UNIT in 0.45% NACL 1 250ML.BAG IV SCH (18:46)
[2024-06-11] MEDS ORDERED: NALOXONE 0.4 MG/ML 1 ML VIAL IV PRN (18:48)
[2024-06-11 20:45] LABS: Glucose,Whole Blood 178 mg/dL (70-110)
[2024-06-11 21:18] LABS: ABG Base Excess 0.5 mmol/L; ABG HCO3 28 mmol/L (21-25); ABG PCO2 54 mmHg (35-45); ABG PH 7.32 (7.35-7.45); ABG PO2 201 mmHg (83-108); ABG TCO2 29 mmol/L (19-24); Allen Test Performed? Yes
[2024-06-11] MEDS: CHLORHEXIDINE GLUCONATE 15 ML CUP MUCOUS MEM SCH (21:43)
[2024-06-11] MEDS: PANTOPRAZOLE 40 MG/10 ML VIAL IVP SCH (22:18)
[2024-06-11] MEDS: SODIUM CHLORIDE 0.9% 1,000 ML IV SCH (22:19)
[2024-06-12] MEDS: PIPERACILLIN-TAZOBACTAM 3.375 GM in SODIUM CHLORIDE 0.9% 100 ML IVPB SCH (00:45)
[2024-06-12] MEDS: levETIRAcetam IV 500 MG/5 ML VIAL IVP STA (00:45)
--- NOTE | 2024-06-12 04:12 | HP ---
HISTORY AND PHYSICAL CHIEF COMPLAINT: Psychotic. HISTORY OF PRESENT ILLNESS: This is a 73-year-old woman with a past medical history of multiple medical problems including CVA, TIA, COPD, DVT, being followed by Dr. Humphries in the outpatient setting, apparently had bowel incontinence. The left the room and found the patient unresponsive, not breathing, and EMS started CPR about 20 minutes, and the patient is extubated and mechanically ventilated at this time. Currently, the patient is on assist-control 14 at 400 tidal volume, 55% FiO2. The patient is unresponsive. Of note, the labs showed pH of 7.15, lactic acid 10.8, and troponin 3.470. Most of the history is taken by discussion with staff and ER physician at this time. PAST MEDICAL HISTORY: COPD, DVT. Rest of the history and rest of the chart are also reviewed. HOME MEDICATIONS: Reviewed, include Ultram. Dose and rest of medications reviewed. ALLERGIES: None. FAMILY HISTORY: Cancer in the family. SOCIAL HISTORY: Smoking. REVIEW OF SYSTEMS: Could not be taken. PHYSICAL EXAMINATION: VITAL SIGNS: Pulse is 98, blood pressure 113/69, respirations 18. HEENT: Conjunctivae normal. NECK: No JVD. CARDIOVASCULAR: S1, S2 normal. RESPIRATORY: Few scattered rhonchi and crackles. ABDOMEN: Soft, nontender. NERVOUS SYSTEM: Unresponsive. LABORATORY DATA: Labs are reviewed. EKG showed ST-T changes. ASSESSMENT: 1. Cardiorespiratory arrest secondary to possibly acute myocardial infarction, on mechanical ventilation. 2. Acute hypoxic respiratory failure. 3. Elevated lactic acid, possibly secondary to prolonged cardiopulmonary resuscitation. 4. Troponin 3.470, possible acute [id number] elevation myocardial infarction. 5. History of cerebrovascular accident and transient ischemic attack. 6. History of chronic obstructive pulmonary disease. 7. History of deep venous thrombosis. 8. History of degenerative joint disease. RECOMMENDATIONS AND DISCUSSION: This 73-year-old woman presented with multiple complex medical issues. At this time, I recommend to continue the current medications, symptomatic treatment. Will continue the mechanical ventilation. Monitor in ICU. Cardiology consultation, intensive care consultation. IV heparin. Prognosis guarded because of multiple complex medical issues. Further recommendations to follow. MMODL / IJN: [id number] /
--- NOTE | 2024-06-12 04:44 | CT ---
EXAM: CT Abdomen and Pelvis Without Intravenous Contrast CLINICAL HISTORY: abd distention. Pt recently told she has pancreatitis last week. Unable to obtain any hx from pt due to intubation. Distention TECHNIQUE: Axial computed tomography images of the abdomen and pelvis without intravenous contrast. Coronal and sagittal reconstructions are performed. CTDI is 9.4 mGy and DLP is 532.5 mGy-cm. This CT exam was performed using one or more of the following dose reduction techniques: automated exposure control, adjustment of the mA and/or kV according to patient size, and/or use of iterative reconstruction technique. 488 images Limitation: Motion artifact and scattering artifact decreases sensitivity of this exam. COMPARISON: 06/06/24 FINDINGS: Lung bases: Unremarkable. No mass. No consolidation. ABDOMEN: Liver: Unchanged Gallbladder and bile ducts: Mild intra-and extrahepatic biliary duct dilatation, similar. Pancreas: Findings related to the pancreas identified on the comparison study are poorly seen due to lack of IV contrast. Spleen: Unremarkable. No splenomegaly. Adrenals: Unremarkable. No mass. Kidneys and ureters: Subtle cortical hypoenhancement of both kidneys may suggest pyelonephritis. No obstructing stones. No hydronephrosis. Stomach and bowel: Circumferential wall thickening of the entire colon, worse in the cecum and ascending colon, suggest colitis. No obstruction. PELVIS: Appendix: No findings to suggest acute appendicitis. Bladder: Urinary bladder is collapsed around a Sampson catheter balloon contains excreted IV contrast. No stones. Reproductive: Left pelvic ectopic kidney. ABDOMEN and PELVIS: Intraperitoneal space: Small ascites, slightly decreased. Bones/joints: Moderate anterior wedge compression defect at T10 with about 50% loss in height, appear chronic. Fusion hardware of L4-5 because large amount of streak artifact, which decreases the sensitivity on associated images. Soft tissues: Mild anasarca, worse. Mild anasarca, slightly increased. Small fat-containing right inguinal hernia also contains small amount of ascites, similar. Vasculature: Moderate to large amount of atherosclerotic calcifications. Lymph nodes: Previously identified retroperitoneal and para-crural lymphadenopathy lymph nodes, unchanged. Tubes, lines and devices: Tip of enteric tube is in the body of the stomach. IMPRESSION: 1. Mild anasarca, worse. 2. Subtle cortical hypoenhancement of both kidneys may suggest pyelonephritis. Please correlate with clinical and laboratory findings. 3. Circumferential wall thickening of the entire colon, worse in the cecum and ascending colon, suggests colitis. 4. Small ascites, slightly decreased. 5. Mild anasarca, slightly increased.
[2024-06-12] MEDS: ACETAMINOPHEN TAB 325 MG TAB PO PRN (05:02)
[2024-06-12 05:43] LABS: ABG Base Excess 1.9 mmol/L; ABG HCO3 27 mmol/L (21-25); ABG PCO2 43 mmHg (35-45); ABG PH 7.41 (7.35-7.45); ABG PO2 149 mmHg (83-108); ABG TCO2 28 mmol/L (19-24); Allen Test Performed? Yes
[2024-06-12 06:00] LABS: Anisocytosis Slight; HCT 39.2 % (34.0-46.0); HGB 12.5 gm/dL (11.4-16.0); Hypochromasia Slight; MCH 29.2 pg (25.0-35.0); MCHC 31.9 g/dL (31.0-37.0); MCV 91.5 fL (80.0-100.0); Mean Platelet Volume 9.7; RBC 4.29 m/uL (3.80-5.40); RDW 16.2 % (11.5-15.5); WBC 11.1 k/uL (3.8-10.6)
[2024-06-12 06:14] LABS: Platelet Count 74 k/uL (150-450)
[2024-06-12 06:39] LABS: African American GFR (CKD) >90 (>60 ml/min/1.73 sqM); Anion Gap 7 mmol/L; Blood Urea Nitrogen 15 mg/dL (7-17); Calcium 7.9 mg/dL (8.4-10.2); Carbon Dioxide 26 mmol/L (22-30); Chloride 103 mmol/L (98-107); Glucose 119 mg/dL (74-99); Magnesium 1.5 mg/dL (1.6-2.3); Non-African American GFR(CKD) 85 (>60 ml/min/1.73 sqM); Potassium 3.3 mmol/L (3.5-5.1); Sodium 136 mmol/L (137-145)
[2024-06-12] MEDS ORDERED: Potassium Replacement Protocol 1 EACH MISC MISCELLANE PRN ×2 (06:41→15:20)
[2024-06-12] MEDS ORDERED: Magnesium Replacement Protocol 1 EACH MISC MISCELLANE PRN ×2 (06:41→15:20)
[2024-06-12 06:42] LABS: Glucose,Whole Blood 118 mg/dL (70-110)
--- NOTE | 2024-06-12 06:42 | XR ---
EXAMINATION TYPE: XR chest 1V portable DATE OF EXAM: 06/12/2024 CLINICAL INDICATION: Female, 73 years old with history of Tube placement, progress study. SOB. TECHNIQUE: Single AP portable semiupright view of the chest is obtained. COMPARISON: Chest x-ray and CT from one day earlier FINDINGS: Stable endotracheal and orogastric tubes. Reticular increased markings bilaterally are redemonstrated. Cardiac silhouette size is stable and wi thin normal limits. Osseous structures are intact. IMPRESSION: Mild fibrotic changes redemonstrated. No new acute pulmonary process seen. [facility], , 06/12/2024 6:39 AM
[2024-06-12] MEDS: MAGNESIUM SULFATE-D5W PMX 1 GM in DEXTROSE/WATER 1 100ML.BAG IVPB SCH (06:53)
[2024-06-12] MEDS: POTASSIUM BICARBONATE/CIT AC 20 MEQ TABLET.EFF NG-TUBE SCH (06:54)
[2024-06-12] MEDS: levETIRAcetam IV 500 MG/5 ML VIAL IVP SCH (08:42)
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
--- NOTE | 2024-06-12 19:12 | OP ---
OPERATIVE REPORT DATE OF SERVICE : PROCEDURE PERFORMED: Placement of the left radial arterial line. PREOPERATIVE DIAGNOSES: Cardiac arrest and acute hypoxic respiratory failure. POSTOPERATIVE DIAGNOSIS: Cardiac arrest and acute hypoxic respiratory failure. ANESTHESIA: None deployed. PROCEDURE IN DETAIL: The left wrist was prepared in a sterile fashion. Drapes were applied. The left radial artery palpated, easily cannulated. Guidewire was placed, and a Cook catheter was inserted over the guidewire. Good blood flow, good waveform. No complications. Line was secured using 3.0 silk sutures. MMODL / IJN: [id number] /
[2024-06-12 19:29] LABS: Glucose,Whole Blood 103 mg/dL (70-110)
[2024-06-12] MEDS: PANTOPRAZOLE 40 MG/10 ML VIAL IVP SCH (21:48)
--- NOTE | 2024-06-12 22:09 | PN ---
PROGRESS NOTE DATE OF SERVICE: 06/12/2024 SUBJECTIVE: This 73-year-old woman who was admitted after a prolonged cardiac arrest, is having acute respiratory failure. The patient is mechanically sedated. The patient had possible acute myocardial infarction. The patient also had possible anoxic brain injury as well. The patient had myoclonic jerks on the left. PAST MEDICAL HISTORY: Reviewed. REVIEW OF SYSTEMS: Could not be taken. CURRENT MEDICATIONS: Reviewed. Vent settings are noted. PHYSICAL EXAMINATION: VITAL SIGNS: Pulse is 85, blood pressure 106/68, and respirations 18. HEENT: Conjunctivae normal. CARDIOVASCULAR: S1, S2. RESPIRATIONS: Breath sounds diminished at the bases. A few scattered rhonchi. ABDOMEN: Soft. NERVOUS SYSTEM: Nonfocal. LABORATORY DATA: Noted. ASSESSMENT: 1. Status post cardiorespiratory arrest secondary to possibly acute myocardial infarction on mechanical ventilation, prolonged CPR. 2. Acute hypoxic respiratory failure. 3. Possible anoxic encephalopathy and left myoclonic jerks. 4. Elevated lactic acid, possibly secondary to prolonged CPR. 5. Troponin 3.470, possible acute pkg-AT-xjnlygv-elevation myocardial infarction. 6. Multiple complex medical issues. RECOMMENDATIONS: Recommend to continue current medications and continue symptomatic treatment. Prognosis extremely guarded because of multiple complex medical issues as mentioned earlier. Currently, the patient is no code. We will closely monitor with multiple consultants. Further recommendation to follow. MMODL / IJN: [id number] /
[2024-06-12 23:49] LABS: Glucose,Whole Blood 119 mg/dL (70-110)
[2024-06-13 05:22] LABS: ABG Base Excess -1.5 mmol/L; ABG HCO3 26 mmol/L (21-25); ABG Oxygen Saturation 95.3 % (94-97); ABG PCO2 52 mmHg (35-45); ABG PO2 80 mmHg (83-108); ABG TCO2 27 mmol/L (19-24)
[2024-06-13 05:24] LABS: Glucose,Whole Blood 112 mg/dL (70-110)
[2024-06-13 05:24] LABS: Allen Test Performed? no
--- NOTE | 2024-06-13 05:59 | P.PN ---
Subjective Progress Note Date: 06/13/24 The patient is a 73-year-old female patient who had a cardiac arrest which was prolonged with PEA. The troponin was checked and came to be abnormal. June 13, 2024 The patient was seen and evaluated this morning. She is intubated on mechanical ventilation but hemodynamically stable and she has been maintaining normal sinus mechanism with the echocardiogram still pending. She is on heparin IV. Appar ently the cardiac arrest was prolonged. She is DNR at this point and in process of having neurologic workup to assess for anoxic encephalopathy. The physical examination is remarkable for regular rhythm with a systolic murmur at the right and left upper sternal border with clear breathing sounds bilaterally and no edema was noted in the lower extremities Assessment Cardiac arrest with PEA which was prolonged Concern about anoxic encephalopathy History of CVA Abnormal cardiac enzymes with elevated troponin Plan Continue the current medical regimen Continue heparin for a total of 48 hours Add aspirin and statin to the current medical regimen Follow-up on the echocardiogram Follow-up with the neurology workup Objective - Vital Signs Vital signs: Vital Signs Temp 100.6 F H 06/13/24 04:00 Pulse 87 06/13/24 05:00 Resp 18 06/13/24 05:00 BP 111/63 06/13/24 05:00 Pulse Ox 97 06/13/24 05:00 FiO2 35 06/13/24 04:00 Intake & Output 06/12/24 06/12/24 06/13/24 06:59 18:59 06:59 Intake Total 7845.981 1177.710 1097.766 Output Total 630 200 275 Balance 440.949 4103.710 822.766 Weight 68.5 kg 72.9 kg Intake: IV 60 1125 1035 Magnesium Sulfate-D5w Pmx 100 1 gm In Dextrose/Water 1 100ml.bag @ 100 mls/hr IVPB Q1H [facility] Rx#: [id number] Piperacillin-Tazobactam 3 100 100 .375 gm In Sodium Chloride 0.9% 100 ml @ 25 mls/hr IVPB Q8HR [facility] Rx# :[id number] Sodium Chloride 0.9% 1, 825 825 000 ml @ 75 mls/hr IV . [id number] [facility] Rx#:[id number] kvo 60 100 110 Intake, IV Titration 1077.538 256.710 62.766 Amount Heparin Sod,Pork in 0.45% 80.655 72.525 0 NaCl 25,000 unit In 0.45 % NaCl 1 250ml.bag @ 12 UNITS/KG/HR 9.253 mls/hr IV .Q24H [facility] Rx#: [id number] Magnesium Sulfate-D5w Pmx 100 1 gm In Dextrose/Water 1 100ml.bag @ 100 mls/hr IVPB Q1H [facility] Rx#: [id number] Piperacillin-Tazobactam 3 100 .375 gm In Sodium Chloride 0.9% 100 ml @ 25 mls/hr IVPB Q8HR [facility] Rx# :[id number] Sodium Chloride 0.9% 1, 750 75 000 ml @ 75 mls/hr IV . [id number] [facility] Rx#:[id number] propofoL 1,000 mg In 46.883 109.185 62.766 Empty Bag 1 bag @ 15 MCG/ KG/MIN 6.94 mls/hr IV . [id number] [facility] Rx#:[id number] Output: Urine 630 200 275 Other: Voiding Method Indwelling Catheter Indwelling Catheter Indwelling Catheter # Bowel Movements 1 ABP, PAP, CO, CI - Last Documented Arterial Blood Pressure 118/48 - Labs CBC & Chem 7: 06/12/24 05:04 06/12/24 05:04 Labs: Abnormal Lab Results - Last 24 Hours (Table) 06/12/24 06/12/24 06/12/24 Range/Units 05:04 05:04 06:40 WBC 11.1 H (3.8-10.6) k/uL RDW 16.2 H (11.5-15.5) % Plt Count 74 L (150-450) k/uL APTT (22.0-30.0) sec ABG pH (7.35-7.45) ABG pCO2 (35-45) mmHg ABG pO2 (83-108) mmHg ABG HCO3 (21-25) mmol/L ABG Total CO2 (19-24) mmol/L Sodium 136 L (137-145) mmol/L Potassium 3.3 L (3.5-5.1) mmol/L Glucose 119 H (74-99) mg/dL POC Glucose (mg/dL) 118 H (70-110) mg/dL Calcium 7.9 L (8.4-10.2) mg/dL Magnesium 1.5 L (1.6-2.3) mg/dL 06/12/24 06/12/24 06/12/24 Range/Units 10:19 17:04 23:48 WBC (3.8-10.6) k/uL RDW (11.5-15.5) % Plt Count (150-450) k/uL APTT 126.1 H* 83.6 H (22.0-30.0) sec ABG pH (7.35-7.45) ABG pCO2 (35-45) mmHg ABG pO2 (83-108) mmHg ABG HCO3 (21-25) mmol/L ABG Total CO2 (19-24) mmol/L Sodium (137-145) mmol/L Potassium (3.5-5.1) mmol/L Glucose (74-99) mg/dL POC Glucose (mg/dL) 119 H (70-110) mg/dL Calcium (8.4-10.2) mg/dL Magnesium (1.6-2.3) mg/dL 06/13/24 06/13/24 06/13/24 Range/Units 01:40 05:18 05:20 WBC (3.8-10.6) k/uL RDW (11.5-15.5) % Plt Count (150-450) k/uL APTT 42.4 H (22.0-30.0) sec ABG pH 7.30 L (7.35-7.45) ABG pCO2 52 H (35-45) mmHg ABG pO2 80 L (83-108) mmHg ABG HCO3 26 H (21-25) mmol/L ABG Total CO2 27 H (19-24) mmol/L Sodium (137-145) mmol/L Potassium (3.5-5.1) mmol/L Glucose (74-99) mg/dL POC Glucose (mg/dL) 112 H (70-110) mg/dL Calcium (8.4-10.2) mg/dL Magnesium (1.6-2.3) mg/dL Microbiology - Last 24 Hours (Table) 06/11/24 07:00 Gram Stain - Preliminary Sputum
--- NOTE | 2024-06-13 06:45 | XR ---
EXAMINATION TYPE: XR chest 1V portable DATE OF EXAM: 06/13/2024 CLINICAL INDICATION: Female, 73 years old with history of Tube placement, progress study. SOB. TECHNIQUE: Single AP portable semiupright view of the chest is obtained. COMPARISON: Chest x-ray from one day earlier and older studies. FINDINGS: Stable endotracheal and orogastric tubes. Reticular increased markings bilaterally are redemonstrated. No new focal airspace opacity seen bilat erally. Cardiac silhouette size is stable and within normal limits. Osseous structures are intact. IMPRESSION: Mild fibrotic changes redemonstrated. No acute pulmonary process seen. No significant ch michael from one day earlier. [facility], , 06/13/2024 6:42 AM
[2024-06-13 06:51] LABS: African American GFR (CKD) 60 (>60 ml/min/1.73 sqM); Anion Gap 5 mmol/L; Blood Urea Nitrogen 22 mg/dL (7-17); Calcium 7.8 mg/dL (8.4-10.2); Carbon Dioxide 26 mmol/L (22-30); Chloride 105 mmol/L (98-107); Glucose 108 mg/dL (74-99); Magnesium 2.1 mg/dL (1.6-2.3); Non-African American GFR(CKD) 52 (>60 ml/min/1.73 sqM); Potassium 3.8 mmol/L (3.5-5.1); Sodium 136 mmol/L (137-145)
[2024-06-13 08:32] LABS: Anisocytosis Slight; Basophils % (A) 0 %; Eosinophils % (A) 0 %; HCT 38.8 % (34.0-46.0); HGB 12.1 gm/dL (11.4-16.0); Hypochromasia Slight; Lymphocytes # (A) 0.5 k/uL (1.0-4.8); Lymphocytes % (A) 7 %; MCH 29.2 pg (25.0-35.0); MCHC 31.2 g/dL (31.0-37.0); MCV 93.5 fL (80.0-100.0); Mean Platelet Volume 9.9; Monocytes # (A) 0.2 k/uL (0-1.0); Monocytes % (A) 3 %; Neutrophils # (A) 6.4 k/uL (1.3-7.7); Neutrophils % (A) 89 %; RBC 4.15 m/uL (3.80-5.40); RDW 16.6 % (11.5-15.5); WBC 7.1 k/uL (3.8-10.6)
[2024-06-13 08:37] LABS: Platelet Count 125 k/uL (150-450)
[2024-06-13] MEDS: ASPIRIN 81 MG PO SCH (08:54)
[2024-06-13] MEDS: POTASSIUM CHLORIDE 10 MEQ in WATER FOR INJECTION 1 100ML.BAG IVPB SCH (08:54)
[2024-06-13] MEDS: NYSTATIN 100,000 UNIT/GM OINT 30 GM TUBE TOPICAL SCH (09:53)
--- NOTE | 2024-06-13 10:25 | P.PN ---
Subjective Progress Note Date: 06/13/24 Principal diagnosis: Hospital course: This is a 73-year-old female, recently evaluated in our ER, she was seen for abdominal pain, and she had abnormal CT of the chest showing pancreatic mass highly consistent with pancreatic carcinoma. Further workup is pending, patient is known to have history of multiple medical problems including COPD, history of DVT, previous history of CVA, last night, patient was found by her unresponsive, not breathing, EMS responded to the 's call, upon arrival patient had CPR for about 20 minutes. Apparently she had pulseless electrical activity. And remained unresponsive all along. Patient was intubated in the field, shortly after the patient lost pulse again, and she was coded for about 3 minutes. She was brought into the ER, placed on mechanical ventilation with tidal volume of 400, rate 18 FiO2 40% and PEEP of 5. ABG this morning showed a pO2 of 149 pCO2 43 pH of 7.41, hence I decreased her FiO2 down to 35%. Patient had CT of the brain which showed no acute intracranial hemorrhage or midline shift, there was evidence of diffuse age-related cerebral atrophy and chronic small vessel ischemic changes. CT angiogram of the chest showed no evidence of pulmonary embolism there was small patchy infiltrate left upper lobe medially, and scattered groundglass infiltrates within the upper lobe. May reflect acute inflammatory process or possibly aspiration. CT of abdomen and pelvis without contrast showed mild anasarca, possible mild pyelonephritis, there was circumferential wall thickening of the entire colon worse in the cecum and ascending colon suggesting colitis. Patient was placed empirically on Zosyn, considering her downtime, neurology has been consulted. Presently the patient is intubated mechanically ventilated, her troponin is elevated, and she is on heparin drip, she had a temp of 101.3, she has very marginal urine output, she is on propofol at 20 mcg/kg/min, IV fluids 75 cc/h she is on Zosyn and Keppra, CODE STATUS apparently has been changed after she was intubated. She is now DNR. Awaiting further input from other consultants including neurology. 06/13/24: Patient seen and examined at bedside today. She continues to be intubated and mechanically ventilated at rate of 18, FiO2 35%, peep 5, vt 500 . Labs today show WBC 7.1, RDW 16.6, platelet count 125, APTT 40.1, sodium 136, BUN 22, creatinine 1.06, calcium 7.8. ABG today shows pO2 80, pCO2 52, pH 7.3. Chest x-ray done today shows mild fibrotic changes redemonstrated, no acute pulmonary process seen, no significant change from 1 day earlier. Patient had EEG and echocardiogram done today, results pending. She continues to be on Zosyn and heparin. Blood cultures pending. Patient was made no code. Objective - Vital Signs Vital signs: Vital Signs Temp 100.6 F H 06/13/24 04:00 Pulse 85 06/13/24 07:00 Resp 18 06/13/24 07:00 BP 104/64 06/13/24 07:00 Pulse Ox 97 06/13/24 07:00 FiO2 35 06/13/24 07:51 Intake & Output 06/12/24 06/13/24 06/13/24 18:59 06:59 18:59 Intake Total 7791.004 9030.766 169.665 Output Total 200 295 25 Balance 1181.710 887.766 144.665 Weight 72.9 kg Intake: IV 1125 1120 85 Magnesium Sulfate-D5w Pmx 100 1 gm In Dextrose/Water 1 100ml.bag @ 100 mls/hr IVPB Q1H [facility] Rx#: [id number] Piperacillin-Tazobactam 3 100 100 .375 gm In Sodium Chloride 0.9% 100 ml @ 25 mls/hr IVPB Q8HR [facility] Rx# :[id number] Sodium Chloride 0.9% 1, 825 900 75 000 ml @ 75 mls/hr IV . [id number] [facility] Rx#:[id number] kvo 100 120 10 Intake, IV Titration 256.710 62.766 84.665 Amount Heparin Sod,Pork in 0.45% 72.525 0 NaCl 25,000 unit In 0.45 % NaCl 1 250ml.bag @ 12 UNITS/KG/HR 9.253 mls/hr IV .Q24H [facility] Rx#: [id number] Sodium Chloride 0.9% 1, 75 000 ml @ 75 mls/hr IV . [id number] [facility] Rx#:[id number] propofoL 1,000 mg In 109.185 62.766 84.665 Empty Bag 1 bag @ 15 MCG/ KG/MIN 6.94 mls/hr IV . [id number] [facility] Rx#:[id number] Output: Urine 200 295 25 Other: Voiding Method Indwelling Catheter Indwelling Catheter ABP, PAP, CO, CI - Last Documented Arterial Blood Pressure 116/47 - Exam GENERAL: Patient is well-developed and well-nourished. Patient is unresponsive ENT: Neck is soft and supple. No significant lymphadenopathy is noted. Oropharynx is clear. Moist mucous membranes. Endotracheal tube and orogastric tube are intact. PULMONARY: Clear breath sound bilaterally no rhonchi no wheezes CARDIOVASCULAR: Distant S1-S2, no S3 gallop. ABDOMEN: Soft and nontender with normal bowel sounds. SKIN: Skin is clear with no lesions or rashes and otherwise unremarkable. NEUROLOGIC: GCS is 3, patient is unresponsive to any stimuli. Pupils are equal reactive. MUSCULOSKELETAL: Unable to assess LYMPHATICS: No significant lymphadenopathy is noted PSYCHIATRIC: Unable to assess at this time - Labs CBC & Chem 7: 06/13/24 05:20 06/13/24 05:20 Labs: Abnormal Lab Results - Last 24 Hours (Table) 06/12/24 06/12/24 06/12/24 Range/Units 10:19 17:04 23:48 RDW (11.5-15.5) % Plt Count (150-450) k/uL Lymphocytes # (1.0-4.8) k/uL APTT 126.1 H* 83.6 H (22.0-30.0) sec ABG pH (7.35-7.45) ABG pCO2 (35-45) mmHg ABG pO2 (83-108) mmHg ABG HCO3 (21-25) mmol/L ABG Total CO2 (19-24) mmol/L Sodium (137-145) mmol/L BUN (7-17) mg/dL Creatinine (0.52-1.04) mg/dL Glucose (74-99) mg/dL POC Glucose (mg/dL) 119 H (70-110) mg/dL Calcium (8.4-10.2) mg/dL 06/13/24 06/13/24 06/13/24 Range/Units 01:40 05:18 05:20 RDW (11.5-15.5) % Plt Count (150-450) k/uL Lymphocytes # (1.0-4.8) k/uL APTT 42.4 H (22.0-30.0) sec ABG pH 7.30 L (7.35-7.45) ABG pCO2 52 H (35-45) mmHg ABG pO2 80 L (83-108) mmHg ABG HCO3 26 H (21-25) mmol/L ABG Total CO2 27 H (19-24) mmol/L Sodium 136 L (137-145) mmol/L BUN 22 H (7-17) mg/dL Creatinine 1.06 H (0.52-1.04) mg/dL Glucose 108 H (74-99) mg/dL POC Glucose (mg/dL) (70-110) mg/dL Calcium 7.8 L (8.4-10.2) mg/dL 06/13/24 06/13/24 06/13/24 Range/Units 05:20 05:20 05:20 RDW 16.6 H (11.5-15.5) % Plt Count 125 L D (150-450) k/uL Lymphocytes # 0.5 L (1.0-4.8) k/uL APTT 40.1 H (22.0-30.0) sec ABG pH (7.35-7.45) ABG pCO2 (35-45) mmHg ABG pO2 (83-108) mmHg ABG HCO3 (21-25) mmol/L ABG Total CO2 (19-24) mmol/L Sodium (137-145) mmol/L BUN (7-17) mg/dL Creatinine (0.52-1.04) mg/dL Glucose (74-99) mg/dL POC Glucose (mg/dL) 112 H (70-110) mg/dL Calcium (8.4-10.2) mg/dL Microbiology - Last 24 Hours (Table) 06/11/24 07:00 Gram Stain - Preliminary Sputum Assessment and Plan Assessment: At home cardiac arrest with prolonged downtime possible acute myocardial infarction Acute hypoxic respiratory failure secondary to above Suspect anoxic brain injury Elevated troponin secondary to above History of underlying pancreatic mass highly suggestive of pancreatic cancer, recently seen on CT of the abdomen pelvis History of underlying COPD Possible aspiration pneumonia Possible colitis as noted on CT of the abdomen pelvis History of deep vein thrombosis History of degenerative joint disease Plan: Continue ventilatory support Continue Zosyn Obtain procalcitonin, if negative consider discontinuing Zosyn Pending EEG, echo, blood cultures Continue heparin Continue GI and DVT prophylaxis Surgery was also consulted because on presentation the patient had distended abdomen, recommend no surgical intervention Continue bronchodilators Overall prognosis extremely poor and guarded considering her prolonged downtime We continue to follow, and family may have to be approached to address comfort c are in the next 24 hours assuming patient has severe prognosis based on her neurological status Consider nutritional support in the next 24 hours/enteral feeding if patient isn't made comfort care Patient is critically ill Critical care time is 55 minutes Time with Patient: Greater than 30
--- NOTE | 2024-06-13 11:27 | P.PN ---
Subjective Progress Note Date: 06/13/24 SURGICAL PROGRESS NOTE CHIEF COMPLAINT: Cardiac arrest HISTORY OF PRESENT ILLNESS: Surgical service consulted in regards to patient's abdominal distention. Patient had cardiac arrest with downtime greater than 20 minutes. Patient remains in the ICU on mechanical ventilation. She had EEG today which nursing staff reported as abnormal. An echo results are pending. Patient has CT scan that had reported colonic wall thickening. There is no evidence of pancreatitis. Patient had fevers during the night of 101.3 having low-grade temps of 100.6 this a.m. WBC is 7.1 PHYSICAL EXAM: VITAL SIGNS: Reviewed. GENERAL: in no acute distress. On the vent ABDOMEN: Soft. distended. Nontender. No rebound tenderness ASSESSMENT: 73 yo female s/p cardiac arrest with downtime greater than 20 mins distended abdomen ctap demonstrates colonic wall thickening, colitis likely secondary to low flow state no signs of active pancreatitis PLAN: -no surgical intervention planned -Overall prognosis poor -Surgical service will sign off. Please call with any questions or concerns Physician Machine Stacker note has been reviewed by physician. Signing provider agrees with the documented findings, assessment, and plan of care. Objective - Vital Signs Vital signs: Vital Signs Temp 100.6 F H 06/13/24 08:00 Pulse 85 06/13/24 11:00 Resp 18 06/13/24 11:00 BP 118/69 06/13/24 11:00 Pulse Ox 94 L 06/13/24 11:00 FiO2 35 06/13/24 11:05 Intake & Output 06/12/24 06/13/24 06/13/24 18:59 06:59 18:59 Intake Total 6969.510 4647.766 830.822 Output Total 200 295 95 Balance 1181.710 887.766 735.822 Weight 72.9 kg Intake: IV 1125 1120 685 Magnesium Sulfate-D5w Pmx 100 1 gm In Dextrose/Water 1 100ml.bag @ 100 mls/hr IVPB Q1H [facility] Rx#: [id number] Piperacillin-Tazobactam 3 100 100 100 .375 gm In Sodium Chloride 0.9% 100 ml @ 25 mls/hr IVPB Q8HR [facility] Rx# :[id number] Potassium Chloride 10 meq 200 In Water For Injection 1 100ml.bag @ 100 mls/hr IVPB Q1H [facility] Rx#: [id number] Sodium Chloride 0.9% 1, 825 900 375 000 ml @ 75 mls/hr IV . [id number] [facility] Rx#:[id number] kvo 100 120 10 Intake, IV Titration 256.710 62.766 85.822 Amount Heparin Sod,Pork in 0.45% 72.525 0 NaCl 25,000 unit In 0.45 % NaCl 1 250ml.bag @ 12 UNITS/KG/HR 9.253 mls/hr IV .Q24H [facility] Rx#: [id number] Sodium Chloride 0.9% 1, 75 000 ml @ 75 mls/hr IV . [id number] [facility] Rx#:[id number] propofoL 1,000 mg In 109.185 62.766 85.822 Empty Bag 1 bag @ 15 MCG/ KG/MIN 6.94 mls/hr IV . [id number] [facility] Rx#:[id number] Other 60 Output: Urine 200 295 95 Other: Voiding Method Indwelling Catheter Indwelling Catheter Indwelling Catheter ABP, PAP, CO, CI - Last Documented Arterial Blood Pressure 126/56 - Labs CBC & Chem 7: 06/13/24 05:20 06/13/24 05:20 Labs: Abnormal Lab Results - Last 24 Hours (Table) 06/12/24 06/12/24 06/13/24 Range/Units 17:04 23:48 01:40 RDW (11.5-15.5) % Plt Count (150-450) k/uL Lymphocytes # (1.0-4.8) k/uL APTT 83.6 H 42.4 H (22.0-30.0) sec ABG pH (7.35-7.45) ABG pCO2 (35-45) mmHg ABG pO2 (83-108) mmHg ABG HCO3 (21-25) mmol/L ABG Total CO2 (19-24) mmol/L Sodium (137-145) mmol/L BUN (7-17) mg/dL Creatinine (0.52-1.04) mg/dL Glucose (74-99) mg/dL POC Glucose (mg/dL) 119 H (70-110) mg/dL Calcium (8.4-10.2) mg/dL 06/13/24 06/13/24 06/13/24 Range/Units 05:18 05:20 05:20 RDW (11.5-15.5) % Plt Count (150-450) k/uL Lymphocytes # (1.0-4.8) k/uL APTT (22.0-30.0) sec ABG pH 7.30 L (7.35-7.45) ABG pCO2 52 H (35-45) mmHg ABG pO2 80 L (83-108) mmHg ABG HCO3 26 H (21-25) mmol/L ABG Total CO2 27 H (19-24) mmol/L Sodium 136 L (137-145) mmol/L BUN 22 H (7-17) mg/dL Creatinine 1.06 H (0.52-1.04) mg/dL Glucose 108 H (74-99) mg/dL POC Glucose (mg/dL) 112 H (70-110) mg/dL Calcium 7.8 L (8.4-10.2) mg/dL 06/13/24 06/13/24 Range/Units 05:20 05:20 RDW 16.6 H (11.5-15.5) % Plt Count 125 L D (150-450) k/uL Lymphocytes # 0.5 L (1.0-4.8) k/uL APTT 40.1 H (22.0-30.0) sec ABG pH (7.35-7.45) ABG pCO2 (35-45) mmHg ABG pO2 (83-108) mmHg ABG HCO3 (21-25) mmol/L ABG Total CO2 (19-24) mmol/L Sodium (137-145) mmol/L BUN (7-17) mg/dL Creatinine (0.52-1.04) mg/dL Glucose (74-99) mg/dL POC Glucose (mg/dL) (70-110) mg/dL Calcium (8.4-10.2) mg/dL Microbiology - Last 24 Hours (Table) 06/11/24 07:00 Gram Stain - Preliminary Sputum Sputum Culture - Preliminary [place] albicans
[2024-06-13 11:42] LABS: Glucose,Whole Blood 113 mg/dL (70-110)
--- NOTE | 2024-06-13 12:15 | CA ---
Transthoracic Echo Report Name: Arlen Mccabe Age: 73 Gender: F : 1950 Exam Date: 06/13/2024 08:25 Exam Location: [facility] Ht (in): 66 Wt (lb): 151 Ordering Physician: Xin Bautista Attending/Referring Phys: [id number], Micheel Electrical/Instrument Technician Cecelia Henley RDCS Procedure CPT: Indications: Cardiac Arrest Cardiac Hx: Cardiac arrest Technical Quality: Technically difficult study Contrast 1: Definity Total Dose (mL): 3 Contrast 2: Total Dose (mL): MEASUREMENTS (Male / Female) Normal Values 2D ECHO LV Diastolic Diameter PLAX 4.4 cm 4.2 - 5.9 / 3.9 - 5.3 cm LV Systolic Diameter PLAX 3.9 cm IVS Diastolic Thickness 1.0 cm 0.6 - 1.0 / 0.6 - 0.9 cm LVPW Diastolic Thickness 0.9 cm 0.6 - 1.0 / 0.6 - 0.9 cm LV Relative Wall Thickness 0.4 LVOT Diameter 2.0 cm LV Diastolic Volume MOD BP 65.8 cm??? 67 - 155 / 56 - 104 cm??? LV Systolic Volume MOD BP 21.0 cm??? 22 - 58 / 19 - 49 cm??? LV Ejection Fraction MOD BP 68.1 % >= 55 % LV Cardiac Index MOD BP 2072.9 cm???/min???m??? LV Diastolic Volume MOD 4C 68.1 cm??? LV Systolic Volume MOD 4C 22.4 cm??? LV Ejection Fraction MOD 4C 67.1 % LV Cardiac Index MOD 4C 2112.4 cm???/min???m??? LV Diastolic Length 4C 6.8 cm LV Systolic Length 4C 5.4 cm LV Diastolic Volume MOD 2C 60.7 cm??? LV Systolic Volume MOD 2C 18.2 cm??? LV Ejection Fraction MOD 2C 69.9 % LV Cardiac Index MOD 2C 1964.4 cm???/min???m??? LV Diastolic Length 2C 6.4 cm LV Systolic Length 2C 5.0 cm DOPPLER AV Peak Velocity 217.1 cm/s AV Peak Gradient 18.9 mmHg AV Mean Velocity 139.9 cm/s AV Mean Gradient 9.2 mmHg AV Velocity Time Integral 29.7 cm LVOT Peak Velocity 104.3 cm/s LVOT Peak Gradient 4.4 mmHg LVOT Velocity Time Integral 16.1 cm LVOT Stroke Volume 50.0 cm??? LVOT Stroke Volume Index 28.2 ml/m??? LVOT Cardiac Index 2315.1 cm???/min???m??? AV Area Cont Eq vti 1.7 cm??? AV Area Cont Eq pk 1.5 cm??? MV Area PHT 3.2 cm??? Mitral E Point Velocity 47.9 cm/s Mitral A Point Velocity 67.0 cm/s Mitral E to A Ratio 0.7 MV Deceleration Time 234.0 ms PV Peak Velocity 105.1 cm/s PV Peak Gradient 4.4 mmHg FINDINGS Left Ventricle Left ventricular ejection fraction is estimated at 50-55 %. Left ventricular cavity size normal. Left ventricular wall thickness normal. No obvious regional wall motion abnormalities. Right Ventricle Normal right ventricular size and function. Unable to estimate the right ventricular systolic pressure. Right Atrium Right atrium not well visualized. Left Atrium Left atrium not well visualized. Mitral Valve Structurally normal mitral valve. Mitral annular calcification. No mitral stenosis, regurgitation or prolapse. Aortic Valve Trileaflet aortic valve. Focal thickening of the aortic valve cusps. Mild aortic stenosis. No aortic regurgitation. Tricuspid Valve Structurally normal tricuspid valve. No tricuspid stenosis. Trace tricuspid regurgitation. Pulmonic Valve Pulmonic valve not well visualized. No pulmonic stenosis. No pulmonic regurgitation. Pericardium No pericardial effusion. Aorta Aortic annulus normal. CONCLUSIONS Normal LV function Mild aortic stenosis Previewed by: Dr. Fab Reyes MD (Electronically Signed) Final Date: 13 June 2024 12:15
--- NOTE | 2024-06-13 13:56 | P.PN ---
Subjective Progress Note Date: 06/13/24 I am following-up with the patient and per the nurse, no improvement. She was on IV Propofol 20mcg/kg/min and was held at 9:30am. No seizure-like activity. Objective - Vital Signs Vital signs: Vital Signs Temp 99.8 F H 06/13/24 12:00 Pulse 83 06/13/24 12:00 Resp 18 06/13/24 12:00 BP 115/64 06/13/24 12:00 Pulse Ox 99 06/13/24 12:00 FiO2 35 06/13/24 12:00 Intake & Output 06/12/24 06/13/24 06/13/24 18:59 06:59 18:59 Intake Total 7718.865 7688.766 915.822 Output Total 200 295 110 Balance 1181.710 887.766 805.822 Weight 72.9 kg Intake: IV 1125 1120 770 Magnesium Sulfate-D5w Pmx 100 1 gm In Dextrose/Water 1 100ml.bag @ 100 mls/hr IVPB Q1H [facility] Rx#: [id number] Piperacillin-Tazobactam 3 100 100 100 .375 gm In Sodium Chloride 0.9% 100 ml @ 25 mls/hr IVPB Q8HR [facility] Rx# :[id number] Potassium Chloride 10 meq 200 In Water For Injection 1 100ml.bag @ 100 mls/hr IVPB Q1H [facility] Rx#: [id number] Sodium Chloride 0.9% 1, 825 900 450 000 ml @ 75 mls/hr IV . [id number] [facility] Rx#:[id number] kvo 100 120 20 Intake, IV Titration 256.710 62.766 85.822 Amount Heparin Sod,Pork in 0.45% 72.525 0 NaCl 25,000 unit In 0.45 % NaCl 1 250ml.bag @ 12 UNITS/KG/HR 9.253 mls/hr IV .Q24H [facility] Rx#: [id number] Sodium Chloride 0.9% 1, 75 000 ml @ 75 mls/hr IV . [id number] [facility] Rx#:[id number] propofoL 1,000 mg In 109.185 62.766 85.822 Empty Bag 1 bag @ 15 MCG/ KG/MIN 6.94 mls/hr IV . [id number] [facility] Rx#:[id number] Other 60 Output: Urine 200 295 110 Other: Voiding Method Indwelling Catheter Indwelling Catheter Indwelling Catheter ABP, PAP, CO, CI - Last Documented Arterial Blood Pressure 122/54 - Exam General: Lying in bed and does not appear in acute distress. HENT: Supple neck. Neuro: Limited. IV Propofol 20mcg/kg/min held for 3 hours before my examination. The patient is comatose. GCS 3 (E1, VT1, M1). I manually open the eyes and the primary gaze is midline. The pupils are 2 mm and reactive to light. Patient is breathing over the vent. Otherwise no other brainstem reflexes. No facial weakness. Motor: No spontaneous movement. Sensation patient does not withdraw to painful stimuli throughout extremities. Some of the workup during this hospital visit consisted of: Troponin is 3.47 Glucose is 182, AST is 132, ALT is 98 I reviewed the rest of the lab workup CT of the head is reported as no acute intracranial hemorrhage or midline shift. There is diffuse age-related cerebral atrophy and chronic small vessel ischemic changes were noted. I personally reviewed the CT and I agree there is no acute or subacute ischemia. - Labs CBC & Chem 7: 06/13/24 05:20 06/13/24 05:20 Labs: Abnormal Lab Results - Last 24 Hours (Table) 06/12/24 06/12/24 06/13/24 Range/Units 17:04 23:48 01:40 RDW (11.5-15.5) % Plt Count (150-450) k/uL Lymphocytes # (1.0-4.8) k/uL APTT 83.6 H 42.4 H (22.0-30.0) sec ABG pH (7.35-7.45) ABG pCO2 (35-45) mmHg ABG pO2 (83-108) mmHg ABG HCO3 (21-25) mmol/L ABG Total CO2 (19-24) mmol/L Sodium (137-145) mmol/L BUN (7-17) mg/dL Creatinine (0.52-1.04) mg/dL Glucose (74-99) mg/dL POC Glucose (mg/dL) 119 H (70-110) mg/dL Calcium (8.4-10.2) mg/dL 06/13/24 06/13/24 06/13/24 Range/Units 05:18 05:20 05:20 RDW (11.5-15.5) % Plt Count (150-450) k/uL Lymphocytes # (1.0-4.8) k/uL APTT (22.0-30.0) sec ABG pH 7.30 L (7.35-7.45) ABG pCO2 52 H (35-45) mmHg ABG pO2 80 L (83-108) mmHg ABG HCO3 26 H (21-25) mmol/L ABG Total CO2 27 H (19-24) mmol/L Sodium 136 L (137-145) mmol/L BUN 22 H (7-17) mg/dL Creatinine 1.06 H (0.52-1.04) mg/dL Glucose 108 H (74-99) mg/dL POC Glucose (mg/dL) 112 H (70-110) mg/dL Calcium 7.8 L (8.4-10.2) mg/dL 06/13/24 06/13/24 06/13/24 Range/Units 05:20 05:20 11:41 RDW 16.6 H (11.5-15.5) % Plt Count 125 L D (150-450) k/uL Lymphocytes # 0.5 L (1.0-4.8) k/uL APTT 40.1 H (22.0-30.0) sec ABG pH (7.35-7.45) ABG pCO2 (35-45) mmHg ABG pO2 (83-108) mmHg ABG HCO3 (21-25) mmol/L ABG Total CO2 (19-24) mmol/L Sodium (137-145) mmol/L BUN (7-17) mg/dL Creatinine (0.52-1.04) mg/dL Glucose (74-99) mg/dL POC Glucose (mg/dL) 113 H (70-110) mg/dL Calcium (8.4-10.2) mg/dL Microbiology - Last 24 Hours (Table) 06/11/24 22:29 Blood Culture - Preliminary Blood 06/11/24 07:00 Gram Stain - Preliminary Sputum Sputum Culture - Preliminary [place] albicans Assessment and Plan Assessment: This is a 73-year-old woman with recent diagnosis of pancreatic cancer this past Thursday and yesterday early in the afternoon patient became unresponsive at home and patient was pulseless electrical activity and had CPR for 20 minutes then coded again for 3 minutes. Prolonged cardiopulmonary arrest Probable anoxic brain injury/anoxic encephalopathy due to due to above. On examination with low IV sedation held for 3 hours is has few brainstem reflex (breathing over vent and pupil reflex). Elevated troponin due to above Underlying pancreatic mass likely suggestive of pancreatic cancer Possible aspiration pneumonia History of DVT History of stroke in 2021 residual right hemiparesis History of COPD Plan: Preliminary EEG: No seizure is noted. Dr. Parekh was called for abnormal movement and he was concerned about seizures so he placed her on Keppra 1000 mg every 12 hours with 5000 mg once. No further seizure reported. I will obtain a repeat CT head tomorrow to assess if any change. Ordered ammonia level. Will defer the rest of the medical management to primary and other specialist Overall prognosis is likely poor. Recommend if possible avoid sedation/opiates that will effect neurological examination. The plan discussed with the patient's was at bedside and his nurse. Time with Patient: Less than 30
[2024-06-13 16:50] LABS: Glucose,Whole Blood 96 mg/dL (70-110)
[2024-06-13 18:57] LABS: Glucose,Whole Blood 104 mg/dL (70-110)
[2024-06-13] MEDS ORDERED: ZINC OXIDE PASTE (Z-GUARD) 1 APPLIC TOPICAL PRN (19:02)
[2024-06-13] MEDS: ATORVASTATIN 40 MG TAB PO SCH (20:03)
--- NOTE | 2024-06-13 22:51 | EEG ---
ELECTROENCEPHALOGRAM REPORT CLINICAL HISTORY: This is a 73-year-old woman with cardiac arrest, who has altered mental status. The video EEG is obtained to evaluate for seizure epileptiform activity. RELEVANT MEDICATIONS: 1. Keppra. 2. IV propofol. EEG TYPE: This is a routine 21-channel EEG with video using the 10/20 electrode placement system. DESCRIPTION: The patient is intubated on a ventilator. The background is very hard to ascertain, but bilateral temporal has significant myogenic artifact, left more than the right while the bilateral central background seems more theta activity, appears 5 to 6, sometimes up to 11 hertz activity and sometimes intermixed with delta activity. There is no physiological stage 2 sleep architecture. There is no focal slowing. As stated above, there is significant myogenic artifact over the bilateral temporal, left temporal more than the right. Interictal and ictal is with the limitation, no seizures or discharges noted. ACTIVATION PROCEDURES: There is no photic driving or abnormality during the photic stimulation. Hyperventilation is not performed. CLINICAL INTERPRETATION: This is a limited study because of significant myogenic artifact seen predominantly over bilateral temporal, left more than the right. With the limitation, the background appears moderate encephalopathy. There is no focal slowing, epileptiform discharge, or seizure on the EEG. Clinical correlation is recommended. MMODL / IJN: [id number] / MTDD
[2024-06-13 23:49] LABS: Glucose,Whole Blood 91 mg/dL (70-110)
--- NOTE | 2024-06-14 04:36 | P.PN ---
Subjective Progress Note Date: 06/13/24 This is a 73-year-old female who was recently admitted status post prolonged cardiac arrest at home having acute respiratory failure and intubated en route to the hospital. Patient maintained on heparin with cardiology following with concerns of possible acute myocardial infarction with elevated troponins. Patient also with prolonged downtime with strong concerns for possible anoxic brain injury and neurology following scheduled undergo EEG today. Patient sedation was turned off and remains unresponsive not following commands and obtunded. Mechanical ventilation with an FiO2 of 35% and PEEP is 5. Review of systems: Unable to obtain as patient is unresponsive and maintained on mechanical ventilation Active Medications Acetaminophen (Acetaminophen Tab 325 Mg Tab) 650 mg PO Q6HR PRN PRN Reason: Fever and/ or Pain Last Admin: 06/13/24 18:45 Dose: 650 mg Aspirin (Aspirin 81 Mg) 81 mg PO DAILY IRA Last Admin: 06/13/24 08:54 Dose: 81 mg Atorvastatin Calcium (Atorvastatin 40 Mg Tab) 40 mg PO HS IRA Last Admin: 06/13/24 20:03 Dose: 40 mg Chlorhexidine Gluconate (Chlorhexidine Gluconate 15 Ml Cup) 15 ml MUCOUS MEM BID IRA Last Admin: 06/13/24 20:03 Dose: 15 ml Heparin Sodium/Sodium Chloride (25,000 unit/ Sodium Chloride) 250 mls @ 9.253 mls/hr IV .Q24H IRA; Protocol Last Admin: 06/13/24 18:44 Dose: 4 units/kg/hr, 3.084 mls/hr Propofol 1,000 mg/ IV Solution 100 mls @ 6.94 mls/hr IV .[id number] IRA; Protocol Last Titration: 06/13/24 09:32 Dose: 0 mcg/kg/min, 0 mls/hr Piperacillin Sod/Tazobactam (Sod 3.375 gm/ Sodium Chloride) 100 mls @ 25 mls/hr IVPB Q8HR IRA; Protocol Last Admin: 06/14/24 00:00 Dose: 25 mls/hr Sodium Chloride (Saline 0.9%) 1,000 mls @ 75 mls/hr IV .[id number] IRA Last Admin: 06/14/24 03:06 Dose: 75 mls/hr Levetiracetam (Levetiracetam Iv 500 Mg/5 Ml Vial) 1,000 mg IVP Q12HR IRA Last Admin: 06/13/24 20:02 Dose: 1,000 mg Miscellaneous Information (Magnesium Replacement Protocol 1 Each Misc) 1 each MISCELLANE DAILY PRN; Protocol PRN Reason: Per Protocol Miscellaneous Information (Potassium Replacement Protocol 1 Each Misc) 1 each MISCELLANE DAILY PRN; Protocol PRN Reason: Per Protocol Naloxone HCl (Naloxone 0.4 Mg/Ml 1 Ml Vial) 0.2 mg IV Q2M PRN PRN Reason: Opioid Reversal Nystatin (Nystatin 100,000 Unit/Gm Oint 30 Gm Tube) 1 applic TOPICAL BID IRA; Protocol Last Admin: 06/13/24 20:03 Dose: 1 applic Pantoprazole Sodium (Pantoprazole 40 Mg/10 Ml Vial) 40 mg IVP BID [facility] Last Admin: 06/13/24 20:02 Dose: 40 mg Petrolatum (Zinc Oxide Paste (Z-Guard) 1 Applic) 1 applic TOPICAL Q2HR PRN; Protocol PRN Reason: Wound Healing PHYSICAL EXAMINATION: GENERAL: The patient is obtunded, maintained on mechanical ventilation with an FiO2 of 35% PEEP is 5, unresponsive and not following commands, currently off sedation, well developed, elderly appearing, ill-appearing HEENT: Pupils are round and sluggish. EOMI. no scleral icterus. No conjunctival pallor. Normocephalic, atraumatic. No pharyngeal erythema. No thyromegaly. CARDIOVASCULAR: S1 and S2 muffled PULMONARY: diminished breath sounds bilaterally with some scattered rhonchi noted. ABDOMEN: soft. Nontender on exam. Thin. non-distended, normoactive bowel sounds. No palpable organomegaly. MUSCULOSKELETAL: No joint swelling or deformity. EXTREMITIES: No cyanosis, clubbing, or pedal edema. NEUROLOGICAL: Unable to assess as patient is on mechanical ventilation, sedation has been weaned off and remains unresponsive and obtunded SKIN: No rashes. 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 and left myoclonic jerks, undergoing MICHAEL and neurological workup Elevated lactic acid, likely secondary to prolonged CPR Troponin 3.470, acute non-STEMI Recently diagnosed pancreatic cancer GI prophylaxis DVT prophylaxis No code Plan: Patient being followed by multiple consultations maintained in the ICU on mechanical ventilation with an FiO2 of 35% per nursing staff sedation was weaned this morning and off propofol and remains unresponsive and obtunded Neurology following scheduled to undergo EEG for further assessment of possible anoxic brain injury CODE STATUS was addressed and patient is no code Awaiting neurology evaluation to discuss further with possible hospice and/or comfort measures with family Due to multiple complex medical issues, overall prognosis is extremely poor and guarded at this time The impression and plan of care has been dictated by Kristi Mendoza nurse pract itioner as directed. Dr. Mariel MD I have performed a history and examination and MDM of this patient, discussed the same with the dictator, and agree with the dictator's assessment and plan as written ,documented as a scribe. Based on total visit time, I have performed more than 50% of the visit. Any additional findings or plans will be noted. Objective - Vital Signs Vital signs: Vital Signs Temp 100.6 F H 06/13/24 04:00 Pulse 85 06/13/24 07:00 Resp 18 06/13/24 07:00 BP 104/64 06/13/24 07:00 Pulse Ox 97 06/13/24 07:00 FiO2 35 06/13/24 07:51 Intake & Output 06/12/24 06/13/24 06/13/24 18:59 06:59 18:59 Intake Total 1795.002 3463.766 169.665 Output Total 200 295 25 Balance 1181.710 887.766 144.665 Weight 72.9 kg Intake: IV 1125 1120 85 Magnesium Sulfate-D5w Pmx 100 1 gm In Dextrose/Water 1 100ml.bag @ 100 mls/hr IVPB Q1H IRA Rx#: [id number] Piperacillin-Tazobactam 3 100 100 .375 gm In Sodium Chloride 0.9% 100 ml @ 25 mls/hr IVPB Q8HR IRA Rx# :[id number] Sodium Chloride 0.9% 1, 825 900 75 000 ml @ 75 mls/hr IV . [id number] IRA Rx#:[id number] kvo 100 120 10 Intake, IV Titration 256.710 62.766 84.665 Amount Heparin Sod,Pork in 0.45% 72.525 0 NaCl 25,000 unit In 0.45 % NaCl 1 250ml.bag @ 12 UNITS/KG/HR 9.253 mls/hr IV .Q24H IRA Rx#: [id number] Sodium Chloride 0.9% 1, 75 000 ml @ 75 mls/hr IV . [id number] IRA Rx#:[id number] propofoL 1,000 mg In 109.185 62.766 84.665 Empty Bag 1 bag @ 15 MCG/ KG/MIN 6.94 mls/hr IV . [id number] IRA Rx#:[id number] Output: Urine 200 295 25 Other: Voiding Method Indwelling Catheter Indwelling Catheter ABP, PAP, CO, CI - Last Documented Arterial Blood Pressure 116/47 - Labs CBC & Chem 7: 06/14/24 04:51 06/14/24 04:51 Labs: Abnormal Lab Results - Last 24 Hours (Table) 06/12/24 06/12/24 06/12/24 Range/Units 10:19 17:04 23:48 RDW (11.5-15.5) % Plt Count (150-450) k/uL Lymphocytes # (1.0-4.8) k/uL APTT 126.1 H* 83.6 H (22.0-30.0) sec ABG pH (7.35-7.45) ABG pCO2 (35-45) mmHg ABG pO2 (83-108) mmHg ABG HCO3 (21-25) mmol/L ABG Total CO2 (19-24) mmol/L Sodium (137-145) mmol/L BUN (7-17) mg/dL Creatinine (0.52-1.04) mg/dL Glucose (74-99) mg/dL POC Glucose (mg/dL) 119 H (70-110) mg/dL Calcium (8.4-10.2) mg/dL 06/13/24 06/13/24 06/13/24 Range/Units 01:40 05:18 05:20 RDW (11.5-15.5) % Plt Count (150-450) k/uL Lymphocytes # (1.0-4.8) k/uL APTT 42.4 H (22.0-30.0) sec ABG pH 7.30 L (7.35-7.45) ABG pCO2 52 H (35-45) mmHg ABG pO2 80 L (83-108) mmHg ABG HCO3 26 H (21-25) mmol/L ABG Total CO2 27 H (19-24) mmol/L Sodium 136 L (137-145) mmol/L BUN 22 H (7-17) mg/dL Creatinine 1.06 H (0.52-1.04) mg/dL Glucose 108 H (74-99) mg/dL POC Glucose (mg/dL) (70-110) mg/dL Calcium 7.8 L (8.4-10.2) mg/dL 06/13/24 06/13/24 06/13/24 Range/Units 05:20 05:20 05:20 RDW 16.6 H (11.5-15.5) % Plt Count 125 L D (150-450) k/uL Lymphocytes # 0.5 L (1.0-4.8) k/uL APTT 40.1 H (22.0-30.0) sec ABG pH (7.35-7.45) ABG pCO2 (35-45) mmHg ABG pO2 (83-108) mmHg ABG HCO3 (21-25) mmol/L ABG Total CO2 (19-24) mmol/L Sodium (137-145) mmol/L BUN (7-17) mg/dL Creatinine (0.52-1.04) mg/dL Glucose (74-99) mg/dL POC Glucose (mg/dL) 112 H (70-110) mg/dL Calcium (8.4-10.2) mg/dL Microbiology - Last 24 Hours (Table) 06/11/24 07:00 Gram Stain - Preliminary Sputum
[2024-06-14 04:53] LABS: ABG Base Excess -3.2 mmol/L; ABG HCO3 24 mmol/L (21-25); ABG Oxygen Saturation 91.9 % (94-97); ABG PCO2 53 mmHg (35-45); ABG PH 7.27 (7.35-7.45); ABG PO2 70 mmHg (83-108); ABG TCO2 26 mmol/L (19-24)
[2024-06-14 05:08] LABS: Anisocytosis Slight; HCT 33.3 % (34.0-46.0); HGB 10.5 gm/dL (11.4-16.0); Hypochromasia Moderate; MCH 28.8 pg (25.0-35.0); MCHC 31.4 g/dL (31.0-37.0); MCV 91.8 fL (80.0-100.0); Mean Platelet Volume 9.6; Platelet Count 126 k/uL (150-450); RBC 3.63 m/uL (3.80-5.40); RDW 16.7 % (11.5-15.5); WBC 5.9 k/uL (3.8-10.6)
[2024-06-14 05:16] LABS: Allen Test Performed? no
--- NOTE | 2024-06-14 06:06 | P.PN ---
Subjective Progress Note Date: 06/14/24 The patient is a 73-year-old female patient who had a cardiac arrest which was prolonged with PEA. The troponin was checked and came to be abnormal. June 13, 2024 The patient was seen and evaluated this morning. She is intubated on mechanical ventilation but hemodynamically stable and she has been maintaining normal sinus mechanism with the echocardiogram still pending. She is on heparin IV. Appar ently the cardiac arrest was prolonged. She is DNR at this point and in process of having neurologic workup to assess for anoxic encephalopathy. The physical examination is remarkable for regular rhythm with a systolic murmur at the right and left upper sternal border with clear breathing sounds bilaterally and no edema was noted in the lower extremities June 14, 2024 The patient was seen and evaluated this morning. Unfortunately no change in the clinical situation. She underwent an EEG yesterday showed moderate encephalopathy. She is not waking up and currently she is not on any sedation. Hemodynamically she is stable which she is in sinus mechanism. The echo showed normal LV systolic function with mild aortic stenosis. The physical examination is remarkable for regular rhythm with a systolic murmur at the right and left upper sternal border with clear breathing sounds bilaterally and no edema was noted in the lower extremities Assessment Cardiac arrest with PEA which was prolonged Concern about anoxic encephalopathy History of CVA Abnormal cardiac enzymes with elevated troponin Plan Continue the current medical regimen No need for any further cardiac workup from the cardiovascular standpoint of view Continue aspirin and statin Further input from the neurology service and intensive care service Objective - Vital Signs Vital signs: Vital Signs Temp 101.0 F H 06/14/24 04:00 Pulse 77 06/14/24 05:00 Resp 24 06/14/24 05:00 BP 119/55 06/14/24 00:00 Pulse Ox 95 06/14/24 05:00 FiO2 55 06/14/24 04:00 Intake & Output 06/13/24 06/13/24 06/14/24 06:59 18:59 06:59 Intake Total 4834.609 0868.754 1235 Output Total 295 262 161 Balance 155.622 3503.754 1074 Weight 72.9 kg 72.9 kg Intake: IV 1120 1380 975 Piperacillin-Tazobactam 3 100 200 100 .375 gm In Sodium Chloride 0.9% 100 ml @ 25 mls/hr IVPB Q8HR IRA Rx# :[id number] Potassium Chloride 10 meq 200 In Water For Injection 1 100ml.bag @ 100 mls/hr IVPB Q1H IRA Rx#: [id number] Sodium Chloride 0.9% 1, 900 900 825 000 ml @ 75 mls/hr IV . [id number] IRA Rx#:[id number] kvo 120 80 50 Intake, IV Titration 62.766 156.754 Amount Heparin Sod,Pork in 0.45% 0 70.932 NaCl 25,000 unit In 0.45 % NaCl 1 250ml.bag @ 12 UNITS/KG/HR 9.253 mls/hr IV .Q24H IRA Rx#: [id number] propofoL 1,000 mg In 62.766 85.822 Empty Bag 1 bag @ 15 MCG/ KG/MIN 6.94 mls/hr IV . [id number] IRA Rx#:[id number] Tube Feeding 30 170 Other 90 90 Output: Urine 295 262 161 Other: Voiding Method Indwelling Catheter Indwelling Catheter Indwelling Catheter ABP, PAP, CO, CI - Last Documented Arterial Blood Pressure 120/52 - Labs CBC & Chem 7: 06/14/24 04:51 06/13/24 18:55 Labs: Abnormal Lab Results - Last 24 Hours (Table) 06/13/24 06/13/24 06/13/24 Range/Units 05:20 05:20 05:20 RBC (3.80-5.40) m/uL Hgb (11.4-16.0) gm/dL Hct (34.0-46.0) % RDW 16.6 H (11.5-15.5) % Plt Count 125 L D (150-450) k/uL Lymphocytes # 0.5 L (1.0-4.8) k/uL APTT 40.1 H (22.0-30.0) sec ABG pH (7.35-7.45) ABG pCO2 (35-45) mmHg ABG pO2 (83-108) mmHg ABG Total CO2 (19-24) mmol/L ABG O2 Saturation (94-97) % Sodium 136 L (137-145) mmol/L BUN 22 H (7-17) mg/dL Creatinine 1.06 H (0.52-1.04) mg/dL Glucose 108 H (74-99) mg/dL POC Glucose (mg/dL) (70-110) mg/dL Calcium 7.8 L (8.4-10.2) mg/dL Ammonia (<30) umol/L Procalcitonin (0.02-0.50) ng/mL 06/13/24 06/13/24 06/13/24 Range/Units 05:20 11:41 15:45 RBC (3.80-5.40) m/uL Hgb (11.4-16.0) gm/dL Hct (34.0-46.0) % RDW (11.5-15.5) % Plt Count (150-450) k/uL Lymphocytes # (1.0-4.8) k/uL APTT (22.0-30.0) sec ABG pH (7.35-7.45) ABG pCO2 (35-45) mmHg ABG pO2 (83-108) mmHg ABG Total CO2 (19-24) mmol/L ABG O2 Saturation (94-97) % Sodium (137-145) mmol/L BUN (7-17) mg/dL Creatinine (0.52-1.04) mg/dL Glucose (74-99) mg/dL POC Glucose (mg/dL) 113 H (70-110) mg/dL Calcium (8.4-10.2) mg/dL Ammonia 35 H (<30) umol/L Procalcitonin 2.32 H (0.02-0.50) ng/mL 06/14/24 06/14/24 06/14/24 Range/Units 04:51 04:51 04:51 RBC 3.63 L (3.80-5.40) m/uL Hgb 10.5 L (11.4-16.0) gm/dL Hct 33.3 L (34.0-46.0) % RDW 16.7 H (11.5-15.5) % Plt Count 126 L (150-450) k/uL Lymphocytes # (1.0-4.8) k/uL APTT 48.7 H (22.0-30.0) sec ABG pH 7.27 L (7.35-7.45) ABG pCO2 53 H (35-45) mmHg ABG pO2 70 L (83-108) mmHg ABG Total CO2 26 H (19-24) mmol/L ABG O2 Saturation 91.9 L (94-97) % Sodium (137-145) mmol/L BUN (7-17) mg/dL Creatinine (0.52-1.04) mg/dL Glucose (74-99) mg/dL POC Glucose (mg/dL) (70-110) mg/dL Calcium (8.4-10.2) mg/dL Ammonia (<30) umol/L Procalcitonin (0.02-0.50) ng/mL Microbiology - Last 24 Hours (Table) 06/11/24 22:29 Blood Culture - Preliminary Blood 06/11/24 07:00 Gram Stain - Preliminary Sputum Sputum Culture - Preliminary Tierra albicans
[2024-06-14 06:09] LABS: Glucose,Whole Blood 94 mg/dL (70-110)
[2024-06-14 06:09] LABS: African American GFR (CKD) 31 (>60 ml/min/1.73 sqM); Anion Gap 5 mmol/L; Blood Urea Nitrogen 37 mg/dL (7-17); Calcium 7.8 mg/dL (8.4-10.2); Carbon Dioxide 24 mmol/L (22-30); Chloride 109 mmol/L (98-107); Glucose 98 mg/dL (74-99); Non-African American GFR(CKD) 27 (>60 ml/min/1.73 sqM); Potassium 4.3 mmol/L (3.5-5.1); Sodium 138 mmol/L (137-145)
--- NOTE | 2024-06-14 06:22 | XR ---
EXAMINATION TYPE: XR chest 1V portable DATE OF EXAM: 06/14/2024 CLINICAL INDICATION: Female, 73 years old with history of Tube placement, progress study. SOB. TECHNIQUE: Single AP portable semiupright view of the chest is obtained. COMPARISON: Chest x-ray from one day earlier and older studies. FINDINGS: Stable endotracheal and orogastric tubes. No new focal airspace opacity seen bilaterally. Cardiac silhouette size is stable and within normal l imits. Osseous structures are intact. IMPRESSION: No acute pulmonary infiltrate seen. No significant change from one day earlier. [facility], , 06/14/2024 6:19 AM
--- NOTE | 2024-06-14 09:50 | P.PN ---
Subjective Progress Note Date: 06/14/24 Principal diagnosis: Hospital course: This is a 73-year-old female, recently evaluated in our ER, she was seen for abdominal pain, and she had abnormal CT of the chest showing pancreatic mass highly consistent with pancreatic carcinoma. Further workup is pending, patient is known to have history of multiple medical problems including COPD, history of DVT, previous history of CVA, last night, patient was found by her unresponsive, not breathing, EMS responded to the 's call, upon arrival patient had CPR for about 20 minutes. Apparently she had pulseless electrical activity. And remained unresponsive all along. Patient was intubated in the field, shortly after the patient lost pulse again, and she was coded for about 3 minutes. She was brought into the ER, placed on mechanical ventilation with tidal volume of 400, rate 18 FiO2 40% and PEEP of 5. ABG this morning showed a pO2 of 149 pCO2 43 pH of 7.41, hence I decreased her FiO2 down to 35%. Patient had CT of the brain which showed no acute intracranial hemorrhage or midline shift, there was evidence of diffuse age-related cerebral atrophy and chronic small vessel ischemic changes. CT angiogram of the chest showed no evidence of pulmonary embolism there was small patchy infiltrate left upper lobe medially, and scattered groundglass infiltrates within the upper lobe. May reflect acute inflammatory process or possibly aspiration. CT of abdomen and pelvis without contrast showed mild anasarca, possible mild pyelonephritis, there was circumferential wall thickening of the entire colon worse in the cecum and ascending colon suggesting colitis. Patient was placed empirically on Zosyn, considering her downtime, neurology has been consulted. Presently the patient is intubated mechanically ventilated, her troponin is elevated, and she is on heparin drip, she had a temp of 101.3, she has very marginal urine output, she is on propofol at 20 mcg/kg/min, IV fluids 75 cc/h she is on Zosyn and Keppra, CODE STATUS apparently has been changed after she was intubated. She is now DNR. Awaiting further input from other consultants including neurology. 06/13/24: Patient seen and examined at bedside today. She continues to be intubated and mechanically ventilated at rate of 18, FiO2 35%, peep 5, vt 500 . Labs today show WBC 7.1, RDW 16.6, platelet count 125, APTT 40.1, sodium 136, BUN 22, creatinine 1.06, calcium 7.8. ABG today shows pO2 80, pCO2 52, pH 7.3. Chest x-ray done today shows mild fibrotic changes redemonstrated, no acute pulmonary process seen, no significant change from 1 day earlier. Patient had EEG and echocardiogram done today, results pending. She continues to be on Zosyn and heparin. Blood cultures pending. Patient was made no code. 06/14/24:Patient evaluated at bedside. She continues to be in the ICU, intubated and mechanically ventilated with assist control rate of 18, FiO2 35%, PEEP of 5, Vt 500 ml. Procalcitonin was 2.32 and ammonia 35. ABG today shows pO2 70, pCO2 53, pH 7.27. Sputum culture grew Tierra albicans and preliminary blood culture shows no growth in 24 hours. Labs today show WBC 5.9, hemoglobin 10.5, platelet count 126, RDW 16.7, chloride 109, BUN 37, creatinine 1.84, calcium 7.8 and APTT 48.7. EEG shows limited study because of myogenic artifact over the bilateral temporal region, moderate encephalopathy, no seizures. Echocardiogram shows 50 to 55% EF, normal LV function and mild aortic stenosis. Chest x-ray today shows no acute changes, no changes compared to yesterday. She continues to be on heparin drip, 0.9 at 75 mL/h and Zosyn. She has been off sedation since yesterday and is now on tube feedsvital at 30 mL/h with a goal of 68. Objective - Vital Signs Vital signs: Vital Signs Temp 103.2 F H 06/14/24 08:00 Pulse 76 06/14/24 09:00 Resp 18 06/14/24 09:00 BP 119/56 06/14/24 09:00 Pulse Ox 95 06/14/24 09:00 FiO2 35 06/14/24 08:00 Intake & Output 06/13/24 06/14/24 06/14/24 18:59 06:59 18:59 Intake Total 3747.937 8323 Output Total 262 166 Balance 7970.409 9449 Weight 72.9 kg Intake: IV 1380 1125 Piperacillin-Tazobactam 3 200 100 .375 gm In Sodium Chloride 0.9% 100 ml @ 25 mls/hr IVPB Q8HR IRA Rx# :[id number] Potassium Chloride 10 meq 200 In Water For Injection 1 100ml.bag @ 100 mls/hr IVPB Q1H IRA Rx#: [id number] Sodium Chloride 0.9% 1, 900 975 000 ml @ 75 mls/hr IV . [id number] IRA Rx#:[id number] kvo 80 50 Intake, IV Titration 156.754 Amount Heparin Sod,Pork in 0.45% 70.932 NaCl 25,000 unit In 0.45 % NaCl 1 250ml.bag @ 12 UNITS/KG/HR 9.253 mls/hr IV .Q24H IRA Rx#: [id number] propofoL 1,000 mg In 85.822 Empty Bag 1 bag @ 15 MCG/ KG/MIN 6.94 mls/hr IV . [id number] IRA Rx#:[id number] Tube Feeding 30 210 Other 90 90 Output: Urine 262 166 Other: Voiding Method Indwelling Catheter Indwelling Catheter ABP, PAP, CO, CI - Last Documented Arterial Blood Pressure 109/37 - Exam GENERAL: Patient is well-developed and well-nourished. Patient is unresponsive. Intubated and mechanically ventilated ENT: Neck is soft and supple. No significant lymphadenopathy is noted. Oropharynx is clear. Moist mucous membranes. Endotracheal tube and orogastric tube are intact. PULMONARY: Clear breath sound bilaterally no rhonchi no wheezes CARDIOVASCULAR: Distant S1-S2, no S3 gallop. ABDOMEN: Soft and nontender with normal bowel sounds. SKIN: Skin is clear with no lesions or rashes and otherwise unremarkable. NEUROLOGIC: GCS is 3, patient is unresponsive to any stimuli. Pupils are equal reactive. MUSCULOSKELETAL: Unable to assess LYMPHATICS: No significant lymphadenopathy is noted PSYCHIATRIC: Unable to assess at this time - Labs CBC & Chem 7: 06/14/24 04:51 06/14/24 04:51 Labs: Abnormal Lab Results - Last 24 Hours (Table) 06/13/24 06/13/24 06/13/24 Range/Units 05:20 11:41 15:45 RBC (3.80-5.40) m/uL Hgb (11.4-16.0) gm/dL Hct (34.0-46.0) % RDW (11.5-15.5) % Plt Count (150-450) k/uL APTT (22.0-30.0) sec ABG pH (7.35-7.45) ABG pCO2 (35-45) mmHg ABG pO2 (83-108) mmHg ABG Total CO2 (19-24) mmol/L ABG O2 Saturation (94-97) % Chloride (98-107) mmol/L BUN (7-17) mg/dL Creatinine (0.52-1.04) mg/dL POC Glucose (mg/dL) 113 H (70-110) mg/dL Calcium (8.4-10.2) mg/dL Ammonia 35 H (<30) umol/L Procalcitonin 2.32 H (0.02-0.50) ng/mL 06/14/24 06/14/24 06/14/24 Range/Units 04:51 04:51 04:51 RBC 3.63 L (3.80-5.40) m/uL Hgb 10.5 L (11.4-16.0) gm/dL Hct 33.3 L (34.0-46.0) % RDW 16.7 H (11.5-15.5) % Plt Count 126 L (150-450) k/uL APTT (22.0-30.0) sec ABG pH 7.27 L (7.35-7.45) ABG pCO2 53 H (35-45) mmHg ABG pO2 70 L (83-108) mmHg ABG Total CO2 26 H (19-24) mmol/L ABG O2 Saturation 91.9 L (94-97) % Chloride 109 H (98-107) mmol/L BUN 37 H (7-17) mg/dL Creatinine 1.84 H (0.52-1.04) mg/dL POC Glucose (mg/dL) (70-110) mg/dL Calcium 7.8 L (8.4-10.2) mg/dL Ammonia (<30) umol/L Procalcitonin (0.02-0.50) ng/mL 06/14/24 Range/Units 04:51 RBC (3.80-5.40) m/uL Hgb (11.4-16.0) gm/dL Hct (34.0-46.0) % RDW (11.5-15.5) % Plt Count (150-450) k/uL APTT 48.7 H (22.0-30.0) sec ABG pH (7.35-7.45) ABG pCO2 (35-45) mmHg ABG pO2 (83-108) mmHg ABG Total CO2 (19-24) mmol/L ABG O2 Saturation (94-97) % Chloride (98-107) mmol/L BUN (7-17) mg/dL Creatinine (0.52-1.04) mg/dL POC Glucose (mg/dL) (70-110) mg/dL Calcium (8.4-10.2) mg/dL Ammonia (<30) umol/L Procalcitonin (0.02-0.50) ng/mL Microbiology - Last 24 Hours (Table) 06/11/24 07:00 Gram Stain - Final Sputum Sputum Culture - Final Tierra albicans 06/11/24 22:29 Blood Culture - Preliminary Blood Assessment and Plan Assessment: At home cardiac arrest with prolonged downtime possible acute myocardial infarction Acute hypoxic respiratory failure secondary to above Suspect anoxic brain injury Elevated troponin secondary to above History of underlying pancreatic mass highly suggestive of pancreatic cancer, recently seen on CT of the abdomen pelvis History of underlying COPD Possible aspiration pneumonia Possible colitis as noted on CT of the abdomen pelvis History of deep vein thrombosis History of degenerative joint disease Plan: Continue ventilatory support Continue Zosyn Continue heparin Continue IV fluids Continue Vital at 30 ml/hr, goal is 68 Continue GI and DVT prophylaxis Surgery was also consulted because on presentation the patient had distended abdomen, recommend no surgical intervention Continue bronchodilators Overall prognosis extremely poor and guarded considering her prolonged downtime Patient is critically ill
[2024-06-14 11:52] LABS: Glucose,Whole Blood 111 mg/dL (70-110)
--- NOTE | 2024-06-14 13:13 | P.PN ---
Subjective Progress Note Date: 06/14/24 I am following-up with patient and she continues to have sedation held since yesterday at 9:30am. No improvement in patient condition per the nurse. Objective - Vital Signs Vital signs: Vital Signs Temp 102.2 F H 06/14/24 12:00 Pulse 73 06/14/24 12:00 Resp 20 06/14/24 12:00 BP 121/56 06/14/24 12:00 Pulse Ox 96 06/14/24 12:00 FiO2 35 06/14/24 12:00 Intake & Output 06/13/24 06/14/24 06/14/24 18:59 06:59 18:59 Intake Total 4090.711 5404 715 Output Total 262 166 35 Balance 9721.941 3691 680 Weight 72.9 kg Intake: IV 1380 1125 475 Piperacillin-Tazobactam 3 200 100 100 .375 gm In Sodium Chloride 0.9% 100 ml @ 25 mls/hr IVPB Q8HR IRA Rx# :[id number] Potassium Chloride 10 meq 200 In Water For Injection 1 100ml.bag @ 100 mls/hr IVPB Q1H IRA Rx#: [id number] Sodium Chloride 0.9% 1, 900 975 375 000 ml @ 75 mls/hr IV . [id number] IRA Rx#:[id number] kvo 80 50 Intake, IV Titration 156.754 Amount Heparin Sod,Pork in 0.45% 70.932 NaCl 25,000 unit In 0.45 % NaCl 1 250ml.bag @ 12 UNITS/KG/HR 9.253 mls/hr IV .Q24H IRA Rx#: [id number] propofoL 1,000 mg In 85.822 Empty Bag 1 bag @ 15 MCG/ KG/MIN 6.94 mls/hr IV . [id number] IRA Rx#:[id number] Tube Feeding 30 210 150 Other 90 90 90 Output: Urine 262 166 35 Other: Voiding Method Indwelling Catheter Indwelling Catheter Indwelling Catheter ABP, PAP, CO, CI - Last Documented Arterial Blood Pressure 104/38 - Exam General: Lying in bed and does not appear in acute distress. HENT: Supple neck. Neuro: Limited. IV Propofol has been stopped for 26 hours. The patient is comatose. GCS 3 (E1, VT1, M1). I manually open the eyes and the primary gaze is midline. The pupils are 2 mm and reactive to light. Patient is breathing over the vent. Otherwise no other brainstem reflexes. No facial weakness. Motor: No spontaneous movement. Sensation patient does not withdraw to painful stimuli throughout extremities. Some of the workup during this hospital visit consisted of: Troponin is 3.47 Glucose is 182, AST is 132, ALT is 98 slightly elevated ammonia. I reviewed the rest of the lab workup CT of the head is reported as no acute intracranial hemorrhage or midline shift. There is diffuse age-related cerebral atrophy and chronic small vessel ischemic changes were noted. I personally reviewed the CT and I agree there is no acute or subacute ischemia. Routine EEG: Is limited because of significant myogenic artifact seen predominately over the bilateral temporal, left > right. With the limitations, the background appears moderate encephalopathy. There is no focal slowing, epileptiform discharge or seizure on the EEG. - Labs CBC & Chem 7: 06/14/24 04:51 06/14/24 04:51 Labs: Abnormal Lab Results - Last 24 Hours (Table) 06/13/24 06/13/24 06/14/24 Range/Units 05:20 15:45 04:51 RBC 3.63 L (3.80-5.40) m/uL Hgb 10.5 L (11.4-16.0) gm/dL Hct 33.3 L (34.0-46.0) % RDW 16.7 H (11.5-15.5) % Plt Count 126 L (150-450) k/uL APTT (22.0-30.0) sec ABG pH (7.35-7.45) ABG pCO2 (35-45) mmHg ABG pO2 (83-108) mmHg ABG Total CO2 (19-24) mmol/L ABG O2 Saturation (94-97) % Chloride (98-107) mmol/L BUN (7-17) mg/dL Creatinine (0.52-1.04) mg/dL POC Glucose (mg/dL) (70-110) mg/dL Calcium (8.4-10.2) mg/dL Ammonia 35 H (<30) umol/L Procalcitonin 2.32 H (0.02-0.50) ng/mL 06/14/24 06/14/24 06/14/24 Range/Units 04:51 04:51 04:51 RBC (3.80-5.40) m/uL Hgb (11.4-16.0) gm/dL Hct (34.0-46.0) % RDW (11.5-15.5) % Plt Count (150-450) k/uL APTT 48.7 H (22.0-30.0) sec ABG pH 7.27 L (7.35-7.45) ABG pCO2 53 H (35-45) mmHg ABG pO2 70 L (83-108) mmHg ABG Total CO2 26 H (19-24) mmol/L ABG O2 Saturation 91.9 L (94-97) % Chloride 109 H (98-107) mmol/L BUN 37 H (7-17) mg/dL Creatinine 1.84 H (0.52-1.04) mg/dL POC Glucose (mg/dL) (70-110) mg/dL Calcium 7.8 L (8.4-10.2) mg/dL Ammonia (<30) umol/L Procalcitonin (0.02-0.50) ng/mL 06/14/24 Range/Units 11:49 RBC (3.80-5.40) m/uL Hgb (11.4-16.0) gm/dL Hct (34.0-46.0) % RDW (11.5-15.5) % Plt Count (150-450) k/uL APTT (22.0-30.0) sec ABG pH (7.35-7.45) ABG pCO2 (35-45) mmHg ABG pO2 (83-108) mmHg ABG Total CO2 (19-24) mmol/L ABG O2 Saturation (94-97) % Chloride (98-107) mmol/L BUN (7-17) mg/dL Creatinine (0.52-1.04) mg/dL POC Glucose (mg/dL) 111 H (70-110) mg/dL Calcium (8.4-10.2) mg/dL Ammonia (<30) umol/L Procalcitonin (0.02-0.50) ng/mL Microbiology - Last 24 Hours (Table) 06/11/24 22:29 Blood Culture - Preliminary Blood 06/11/24 07:00 Gram Stain - Final Sputum Sputum Culture - Final Tierra albicans Assessment and Plan Assessment: This is a 73-year-old woman with recent diagnosis of pancreatic cancer this past Thursday and yesterday early in the afternoon patient became unresponsive at home and patient was pulseless electrical activity and had CPR for 20 minutes then coded again for 3 minutes. Prolonged cardiopulmonary arrest Likely anoxic brain injury due to above. On examination has few brainstem reflex (breathing over vent and pupil reflex). Elevated troponin due to above Underlying pancreatic mass likely suggestive of pancreatic cancer Possible aspiration pneumonia History of DVT History of stroke in 2021 residual right hemiparesis History of COPD Plan: Dr. Parekh was called for abnormal movement and he was concerned about seizures so he placed her on Keppra 1000 mg every 12 hours with 5000 mg once. No further seizure reported. Pending repeat CT head tomorrow to assess if any change. Patient has minimally elevated ammonia. Will defer management to primary team. The sedation has been stopped now for slightly over 24 hours and no improvement in condition. Please avoid sedation/opiates as much as possible. The was in agreement, by tomorrow if no improvement, then will consider withdrawing of care. He stated "I want my to be a vegetable". Will defer the rest of the medical management to primary and other specialist Overall prognosis is poor. The plan discussed with the patient's was at bedside and his nurse. Time with Patient: Less than 30
--- NOTE | 2024-06-14 14:04 | CT ---
EXAMINATION TYPE: CT brain wo con DATE OF EXAM: 06/14/2024 COMPARISON: 06/11/2024 CLINICAL INDICATION: Female, 73 years old with history of altered mental status. Post cardiac arrest ; PHH, AMS, status post cardiac arrest CT DLP: 1200.4 mGycm Automated exposure control for dose reduction was used. Findings: The basal cisterns and sulci of the convexities are less prominent and has been seen on prior studies and there is loss of the machuca-white differentiation raising the question of diffuse brain edema. The re is no mass effect or shift of midline structures. There is a stable remote left frontal cortical and subcortical white matter infarct. There is a stabl e dense calcification in the posterior right frontal lobe. There is been interval development of a small focal area of acute subarachnoid hemorrhage in the post erior right parietal lobe. The posterior fossa including the brainstem, fourth ventricle and cerebellar pontine angles appear no rmal. Intraorbital contents appear normal and symmetric. There is an air-fluid level in the right maxillary sinus raising the question of acute sinusitis. The mastoid air cells are well aerated The calvarium is intact. IMPRESSION: 1. Findings raise the question of diffuse brain edema as described above. 2. Interval development of acute subarachnoid hemorrhage in the posterior right parietal lobe. 3. Stable remote left frontal infarct 4. Acute right maxillary sinusitis. CT referring provider was notified as important finding by phone call on 06/09/2024 at approximately 2 :15 PM [facility], Workstation: [id number], 06/14/2024 2:01 PM
[2024-06-14 17:50] LABS: Glucose,Whole Blood 114 mg/dL (70-110)
[2024-06-15 05:34] LABS: ABG Base Excess -8.6 mmol/L; ABG HCO3 21 mmol/L (21-25); ABG Oxygen Saturation 92.2 % (94-97); ABG PCO2 64 mmHg (35-45); ABG PO2 72 mmHg (83-108); ABG TCO2 23 mmol/L (19-24)
[2024-06-15 05:40] LABS: ABG PH 7.13 (7.35-7.45); Allen Test Performed? no
[2024-06-15 05:42] LABS: Glucose,Whole Blood 113 mg/dL (70-110)
--- NOTE | 2024-06-15 06:10 | XR ---
EXAMINATION TYPE: XR chest 1V portable DATE OF EXAM: 06/15/2024 CLINICAL INDICATION: Female, 73 years old with history of intubated, progress study. SOB. TECHNIQUE: Single AP portable semiupright view of the chest is obtained. COMPARISON: Chest x-ray from one day earlier and older studies. FINDINGS: Stable endotracheal and orogastric tubes. No new focal airspace opacity or pneumothorax seen bilaterally. Cardiac silhouette size is stable and within normal limits with Atherosclerotic thoracic aorta redemonstrated. Osseous structures are inta ct. IMPRESSION: Chronic changes without acute pulmonary process seen. No significant change from one day earlier. [facility], , 06/15/2024 6:07 AM
--- NOTE | 2024-06-15 06:27 | P.PN ---
Subjective Progress Note Date: 06/15/24 The patient is a 73-year-old female patient who had a cardiac arrest which was prolonged with PEA. The troponin was checked and came to be abnormal. June 13, 2024 The patient was seen and evaluated this morning. She is intubated on mechanical ventilation but hemodynamically stable and she has been maintaining normal sinus mechanism with the echocardiogram still pending. She is on heparin IV. Appar ently the cardiac arrest was prolonged. She is DNR at this point and in process of having neurologic workup to assess for anoxic encephalopathy. The physical examination is remarkable for regular rhythm with a systolic murmur at the right and left upper sternal border with clear breathing sounds bilaterally and no edema was noted in the lower extremities June 14, 2024 The patient was seen and evaluated this morning. Unfortunately no change in the clinical situation. She underwent an EEG yesterday showed moderate encephalopathy. She is not waking up and currently she is not on any sedation. Hemodynamically she is stable which she is in sinus mechanism. The echo showed normal LV systolic function with mild aortic stenosis. The physical examination is remarkable for regular rhythm with a systolic murmur at the right and left upper sternal border with clear breathing sounds bilaterally and no edema was noted in the lower extremities June 15, 2024 The patient was seen and evaluated this morning. Unfortunately she underwent a CT scan of the brain which showed subarachnoid hemorrhage. Overall neurologically she is not doing well. She is off sedation and not waking up. The family is discussing possible comfort care. Otherwise hemodynamically she is stable which she is in sinus mechanism. The physical examination is remarkable for regular rhythm with a soft systolic murmur at the right and left upper sternal border with a clear breathing sounds bilaterally and no edema was noted in the lower extremities Assessment Cardiac arrest with PEA which was prolonged Concern about anoxic encephalopathy History of CVA Abnormal cardiac enzymes with elevated troponin Subarachnoid hemorrhage Plan Continue holding anticoagulation and antiplatelet No reason for any further cardiac workup Objective - Vital Signs Vital signs: Vital Signs Temp 99.1 F 06/15/24 04:00 Pulse 76 06/15/24 06:00 Resp 18 06/15/24 06:00 BP 112/53 06/15/24 06:00 Pulse Ox 98 06/15/24 06:00 FiO2 35 06/15/24 04:12 Intake & Output 06/14/24 06/14/24 06/15/24 06:59 18:59 06:59 Intake Total 1425 6471.282 0857 Output Total 166 65 60 Balance 1259 3532.651 9778 Weight 71.8 kg Intake: IV 1125 1088 936 Piperacillin-Tazobactam 3 100 200 .375 gm In Sodium Chloride 0.9% 100 ml @ 25 mls/hr IVPB Q8HR IRA Rx# :[id number] Sodium Chloride 0.9% 1, 975 825 900 000 ml @ 75 mls/hr IV . [id number] IRA Rx#:[id number] kvo 50 30 pressure bag 33 36 Intake, IV Titration 59.675 Amount Heparin Sod,Pork in 0.45% 59.675 NaCl 25,000 unit In 0.45 % NaCl 1 250ml.bag @ 12 UNITS/KG/HR 9.253 mls/hr IV .Q24H IRA Rx#: [id number] Tube Feeding 210 360 550 Other 90 120 90 Output: Urine 166 65 60 Other: Voiding Method Indwelling Catheter Indwelling Catheter Indwelling Catheter ABP, PAP, CO, CI - Last Documented Arterial Blood Pressure 121/48 - Labs CBC & Chem 7: 06/14/24 04:51 06/14/24 04:51 Labs: Abnormal Lab Results - Last 24 Hours (Table) 06/14/24 06/14/24 06/15/24 Range/Units 11:49 17:49 05:30 ABG pH 7.13 L* (7.35-7.45) ABG pCO2 64 H (35-45) mmHg ABG pO2 72 L (83-108) mmHg ABG O2 Saturation 92.2 L (94-97) % POC Glucose (mg/dL) 111 H 114 H (70-110) mg/dL 06/15/24 Range/Units 05:41 ABG pH (7.35-7.45) ABG pCO2 (35-45) mmHg ABG pO2 (83-108) mmHg ABG O2 Saturation (94-97) % POC Glucose (mg/dL) 113 H (70-110) mg/dL Microbiology - Last 24 Hours (Table) 06/11/24 22:29 Blood Culture - Preliminary Blood 06/11/24 07:00 Gram Stain - Final Sputum Sputum Culture - Final Tierra albicans
--- NOTE | 2024-06-15 07:05 | CT ---
EXAMINATION TYPE: CT brain wo con CT DLP: 1141 mGycm, Automated exposure control for dose reduction was used. DATE OF EXAM: 06/15/2024 3:34 AM COMPARISON: CT brain 06/14/2024, 06/11/2024, 08/06/2022 CLINICAL INDICATION:Female, 73 years old with history of ams. Recent ?SAH right parietal. Cardiac a rrest, ams. Recent ?SAH right parietal. Cardiac arrest TECHNIQUE: Brain: Multiple axial CT images of the brain were obtained without IV contrast. . Coronal and sagitta l reformats reviewed. FINDINGS: Brain: Extra-axial spaces: The basal cisterns and sulci of the convexities are again less prominent as seen on prior studies. Ventricular system: Within normal limits Cerebral parenchyma: Stable remote left frontal cortical and subcortical white matter infarct. Simila r small focal area of acute subarachnoid hemorrhage in the posterior right parietal lobe (series 2032 , image 36). There is again loss of machuca-white differentiation of the cerebral parenchyma. Stable den se calcification within the posterior right frontal lobe. Cerebellum: Unremarkable. Mass effect: No evidence of midline shift. Intracranial vasculature: Atherosclerotic calcifications of the intracranial vessels. Soft tissues: Normal. Calvarium/osseous structures: No depressed skull fracture. Paranasal sinuses and mastoid air cells: Partial opacification of bilateral mastoid air cells. Air-fl uid level within the right maxillary sinus again. Aplasia of the bilateral frontal sinuses. Visualized orbits: Bilateral aphakia Other: Partial visualization of endotracheal and orogastric tubes. IMPRESSION: 1. Findings suggesting diffuse brain edema again. 2. Unchanged acute subarachnoid hemorrhage within the posterior right parietal lobe. 3. Stable remote left frontal lobe infarct. 4. Acute right maxillary sinusitis redemonstrated. [facility], , 06/15/2024 7:02 AM
--- NOTE | 2024-06-15 07:10 | P.PN ---
Subjective Progress Note Date: 06/14/24 This is a 73-year-old female who was recently admitted status post prolonged cardiac arrest at home having acute respiratory failure and intubated en route to the hospital. Patient maintained on heparin with cardiology following with concerns of possible acute myocardial infarction with elevated troponins. Patient also with prolonged downtime with strong concerns for possible anoxic brain injury and neurology following scheduled undergo EEG today. Patient sedation was turned off and remains unresponsive not following commands and obtunded. Mechanical ventilation with an FiO2 of 35% and PEEP is 5. 06/14/2024 Patient is seen in follow-up today continues to be on mechanical ventilation off sedation and remains unresponsive. Patient is scheduled to undergo a repeat CT brain at this time with neurology following. Patient has been started on tube feedings and recommend aspiration precautions. Empiric antibiotics started as well and will continue. General surgery was evaluated as patient was distended on admission in the abdomen and patient is deemed not a surgical candidate with no plans of intervention at this time. Patient is continued on heparin as patient had elevated troponins. Review of systems: Unable to obtain as patient is unresponsive and maintained on mechanical ventilation, sedation has been off for 24 hours with no improvement PHYSICAL EXAMINATION: GENERAL: The patient is obtunded, maintained on mechanical ventilation with an FiO2 of 35% PEEP is 5, unresponsive and not following commands, currently off sedation, well developed, elderly appearing, ill-appearing HEENT: Pupils are round and sluggish. EOMI. no scleral icterus. No conjunctival pallor. Normocephalic, atraumatic. No pharyngeal erythema. No thyromegaly. CARDIOVASCULAR: S1 and S2 muffled PULMONARY: diminished breath sounds bilaterally with some scattered rhonchi noted. ABDOMEN: soft. Nontender on exam. Thin. non-distended, normoactive bowel sounds. No palpable organomegaly. MUSCULOSKELETAL: No joint swelling or deformity. EXTREMITIES: No cyanosis, clubbing, or pedal edema. NEUROLOGICAL: Unable to assess as patient is on mechanical ventilation, sedation has been weaned off and remains unresponsive and obtunded SKIN: No rashes. 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 and left myoclonic jerks, undergoing neurological workup and scheduled to undergo CT brain which is pending for today 06/14/2024 Elevated lactic acid, likely secondary to prolonged CPR Troponin 3.470, acute non-STEMI, maintained on IV heparin Recently diagnosed pancreatic cancer GI prophylaxis DVT prophylaxis No code Plan: Patient being followed by multiple consultations maintained in the ICU on mechanical ventilation with an FiO2 of 35% per nursing staff sedation was weaned this morning and off propofol and remains unresponsive and obtunded Neurology following scheduled to undergo repeat CT brain today CODE STATUS was addressed and patient is no code Awaiting neurology evaluation to discuss further with possible hospice and/or comfort measures with family Due to multiple complex medical issues, overall prognosis is extremely poor and guarded at this time The impression and plan of care has been dictated by Kristi Mendoza, nurse practitioner as directed. Dr. Mariel MD I have performed a history and examination and MDM of this patient, discussed the same with the dictator, and agree with the dictator's assessment and plan as written ,documented as a scribe. Based on total visit time, I have performed more than 50% of the visit. Any additional findings or plans will be noted. Objective - Vital Signs Vital signs: Vital Signs Temp 103 F H 06/14/24 10:00 Pulse 75 06/14/24 10:00 Resp 19 06/14/24 10:00 BP 110/59 06/14/24 10:00 Pulse Ox 97 06/14/24 10:00 FiO2 35 06/14/24 08:00 Intake & Output 06/13/24 06/14/24 06/14/24 18:59 06:59 18:59 Intake Total 0362.268 8497 475 Output Total 262 166 25 Balance 3374.865 2626 450 Weight 72.9 kg Intake: IV 1380 1125 325 Piperacillin-Tazobactam 3 200 100 100 .375 gm In Sodium Chloride 0.9% 100 ml @ 25 mls/hr IVPB Q8HR IRA Rx# :[id number] Potassium Chloride 10 meq 200 In Water For Injection 1 100ml.bag @ 100 mls/hr IVPB Q1H IRA Rx#: [id number] Sodium Chloride 0.9% 1, 900 975 225 000 ml @ 75 mls/hr IV . [id number] IRA Rx#:[id number] kvo 80 50 Intake, IV Titration 156.754 Amount Heparin Sod,Pork in 0.45% 70.932 NaCl 25,000 unit In 0.45 % NaCl 1 250ml.bag @ 12 UNITS/KG/HR 9.253 mls/hr IV .Q24H IRA Rx#: [id number] propofoL 1,000 mg In 85.822 Empty Bag 1 bag @ 15 MCG/ KG/MIN 6.94 mls/hr IV . [id number] RIA Rx#:[id number] Tube Feeding 30 210 90 Other 90 90 60 Output: Urine 262 166 25 Other: Voiding Method Indwelling Catheter Indwelling Catheter Indwelling Catheter ABP, PAP, CO, CI - Last Documented Arterial Blood Pressure 103/36 - Labs CBC & Chem 7: 06/14/24 04:51 06/14/24 04:51 Labs: Abnormal Lab Results - Last 24 Hours (Table) 06/13/24 06/13/24 06/13/24 Range/Units 05:20 11:41 15:45 RBC (3.80-5.40) m/uL Hgb (11.4-16.0) gm/dL Hct (34.0-46.0) % RDW (11.5-15.5) % Plt Count (150-450) k/uL APTT (22.0-30.0) sec ABG pH (7.35-7.45) ABG pCO2 (35-45) mmHg ABG pO2 (83-108) mmHg ABG Total CO2 (19-24) mmol/L ABG O2 Saturation (94-97) % Chloride (98-107) mmol/L BUN (7-17) mg/dL Creatinine (0.52-1.04) mg/dL POC Glucose (mg/dL) 113 H (70-110) mg/dL Calcium (8.4-10.2) mg/dL Ammonia 35 H (<30) umol/L Procalcitonin 2.32 H (0.02-0.50) ng/mL 06/14/24 06/14/24 06/14/24 Range/Units 04:51 04:51 04:51 RBC 3.63 L (3.80-5.40) m/uL Hgb 10.5 L (11.4-16.0) gm/dL Hct 33.3 L (34.0-46.0) % RDW 16.7 H (11.5-15.5) % Plt Count 126 L (150-450) k/uL APTT (22.0-30.0) sec ABG pH 7.27 L (7.35-7.45) ABG pCO2 53 H (35-45) mmHg ABG pO2 70 L (83-108) mmHg ABG Total CO2 26 H (19-24) mmol/L ABG O2 Saturation 91.9 L (94-97) % Chloride 109 H (98-107) mmol/L BUN 37 H (7-17) mg/dL Creatinine 1.84 H (0.52-1.04) mg/dL POC Glucose (mg/dL) (70-110) mg/dL Calcium 7.8 L (8.4-10.2) mg/dL Ammonia (<30) umol/L Procalcitonin (0.02-0.50) ng/mL 06/14/24 Range/Units 04:51 RBC (3.80-5.40) m/uL Hgb (11.4-16.0) gm/dL Hct (34.0-46.0) % RDW (11.5-15.5) % Plt Count (150-450) k/uL APTT 48.7 H (22.0-30.0) sec ABG pH (7.35-7.45) ABG pCO2 (35-45) mmHg ABG pO2 (83-108) mmHg ABG Total CO2 (19-24) mmol/L ABG O2 Saturation (94-97) % Chloride (98-107) mmol/L BUN (7-17) mg/dL Creatinine (0.52-1.04) mg/dL POC Glucose (mg/dL) (70-110) mg/dL Calcium (8.4-10.2) mg/dL Ammonia (<30) umol/L Procalcitonin (0.02-0.50) ng/mL Microbiology - Last 24 Hours (Table) 06/11/24 07:00 Gram Stain - Final Sputum Sputum Culture - Final [place] albicans 06/11/24 22:29 Blood Culture - Preliminary Blood
--- NOTE | 2024-06-15 10:07 | P.PN ---
Subjective Progress Note Date: 06/15/24 Principal diagnosis: Hospital course: This is a 73-year-old female, recently evaluated in our ER, she was seen for abdominal pain, and she had abnormal CT of the chest showing pancreatic mass highly consistent with pancreatic carcinoma. Further workup is pending, patient is known to have history of multiple medical problems including COPD, history of DVT, previous history of CVA, last night, patient was found by her unresponsive, not breathing, EMS responded to the 's call, upon arrival patient had CPR for about 20 minutes. Apparently she had pulseless electrical activity. And remained unresponsive all along. Patient was intubated in the field, shortly after the patient lost pulse again, and she was coded for about 3 minutes. She was brought into the ER, placed on mechanical ventilation with tidal volume of 400, rate 18 FiO2 40% and PEEP of 5. ABG this morning showed a pO2 of 149 pCO2 43 pH of 7.41, hence I decreased her FiO2 down to 35%. Patient had CT of the brain which showed no acute intracranial hemorrhage or midline shift, there was evidence of diffuse age-related cerebral atrophy and chronic small vessel ischemic changes. CT angiogram of the chest showed no evidence of pulmonary embolism there was small patchy infiltrate left upper lobe medially, and scattered groundglass infiltrates within the upper lobe. May reflect acute inflammatory process or possibly aspiration. CT of abdomen and pelvis without contrast showed mild anasarca, possible mild pyelonephritis, there was circumferential wall thickening of the entire colon worse in the cecum and ascending colon suggesting colitis. Patient was placed empirically on Zosyn, considering her downtime, neurology has been consulted. Presently the patient is intubated mechanically ventilated, her troponin is elevated, and she is on heparin drip, she had a temp of 101.3, she has very marginal urine output, she is on propofol at 20 mcg/kg/min, IV fluids 75 cc/h she is on Zosyn and Keppra, CODE STATUS apparently has been changed after she was intubated. She is now DNR. Awaiting further input from other consultants including neurology. 06/13/24: Patient seen and examined at bedside today. She continues to be intubated and mechanically ventilated at rate of 18, FiO2 35%, peep 5, vt 500 . Labs today show WBC 7.1, RDW 16.6, platelet count 125, APTT 40.1, sodium 136, BUN 22, creatinine 1.06, calcium 7.8. ABG today shows pO2 80, pCO2 52, pH 7.3. Chest x-ray done today shows mild fibrotic changes redemonstrated, no acute pulmonary process seen, no significant change from 1 day earlier. Patient had EEG and echocardiogram done today, results pending. She continues to be on Zosyn and heparin. Blood cultures pending. Patient was made no code. 06/14/24:Patient evaluated at bedside. She continues to be in the ICU, intubated and mechanically ventilated with assist control rate of 18, FiO2 35%, PEEP of 5, Vt 500 ml. Procalcitonin was 2.32 and ammonia 35. ABG today shows pO2 70, pCO2 53, pH 7.27. Sputum culture grew Tierra albicans and preliminary blood culture shows no growth in 24 hours. Labs today show WBC 5.9, hemoglobin 10.5, platelet count 126, RDW 16.7, chloride 109, BUN 37, creatinine 1.84, calcium 7.8 and APTT 48.7. EEG shows limited study because of myogenic artifact over the bilateral temporal region, moderate encephalopathy, no seizures. Echocardiogram shows 50 to 55% EF, normal LV function and mild aortic stenosis. Chest x-ray today shows no acute changes, no changes compared to yesterday. She continues to be on heparin drip, 0.9 at 75 mL/h and Zosyn. She has been off sedation since yesterday and is now on tube feedsvital at 30 mL/h with a goal of 68. 06/15/24: Patient examined today. She continues to be in the ICU, intubated and mechanically ventilated with assist control rate of 18, FiO2 35%, PEEP of 5 and Vt 400 ml. ABG done today shows pO2 72, pCO2 64, pH 7.13. Blood culture shows no growth after [address] done yesterday shows findings there is a question of diffuse brain edema, interval development of acute subarachnoid hemorrhage in the posterior right parietal lobe, stable remote left frontal inf arct and acute right maxillary sinusitis. Chest x-ray done today shows chronic changes without acute pulmonary process, no significant change from [address] done today shows unchanged acute subarachnoid hemorrhage within the posterior right parietal lobe. Heparin was discontinued. She is on 0.9 normal saline at 75 mL/h and vital tube feed at 30 mL/h. She continues to be on Zosyn every 8 hours. Attempt was made to contact the patient's family to rehabilitation services counselor about comfort care, but unable to reach the family at this time. Objective - Vital Signs Vital signs: Vital Signs Temp 98.6 F 06/15/24 08:00 Pulse 82 06/15/24 07:00 Resp 18 06/15/24 09:00 BP 114/53 06/15/24 09:00 Pulse Ox 96 06/15/24 09:00 FiO2 35 06/15/24 09:10 Intake & Output 06/14/24 06/15/24 06/15/24 18:59 06:59 18:59 Intake Total 3890.985 8024 258 Output Total 65 65 5 Balance 3086.914 4790 253 Weight 71.8 kg Intake: IV 1088 1014 178 Piperacillin-Tazobactam 3 200 100 .375 gm In Sodium Chloride 0.9% 100 ml @ 25 mls/hr IVPB Q8HR IRA Rx# :[id number] Sodium Chloride 0.9% 1, 825 975 75 000 ml @ 75 mls/hr IV . [id number] IRA Rx#:[id number] kvo 30 pressure bag 33 39 3 Intake, IV Titration 59.675 Amount Heparin Sod,Pork in 0.45% 59.675 NaCl 25,000 unit In 0.45 % NaCl 1 250ml.bag @ 12 UNITS/KG/HR 9.253 mls/hr IV .Q24H IRA Rx#: [id number] Tube Feeding 360 600 50 Other 120 90 30 Output: Urine 65 65 5 Other: Voiding Method Indwelling Catheter Indwelling Catheter Indwelling Catheter ABP, PAP, CO, CI - Last Documented Arterial Blood Pressure 116/48 - Exam GENERAL: Patient is well-developed and well-nourished. Patient is unresponsive. Intubated and mechanically ventilated ENT: Neck is soft and supple. No significant lymphadenopathy is noted. Oropharynx is clear. Moist mucous membranes. Endotracheal tube and orogastric tube are intact. PULMONARY: Clear breath sound bilaterally no rhonchi no wheezes CARDIOVASCULAR: Distant S1-S2, no S3 gallop. ABDOMEN: Soft and nontender with normal bowel sounds. SKIN: Skin is clear with no lesions or rashes and otherwise unremarkable. NEUROLOGIC: GCS is 3, patient is unresponsive to any stimuli. Pupils are equal reactive. MUSCULOSKELETAL: Unable to assess LYMPHATICS: No significant lymphadenopathy is noted PSYCHIATRIC: Unable to assess at this time - Labs CBC & Chem 7: 06/14/24 04:51 06/14/24 04:51 Labs: Abnormal Lab Results - Last 24 Hours (Table) 06/14/24 06/14/24 06/15/24 Range/Units 11:49 17:49 05:30 ABG pH 7.13 L* (7.35-7.45) ABG pCO2 64 H (35-45) mmHg ABG pO2 72 L (83-108) mmHg ABG O2 Saturation 92.2 L (94-97) % POC Glucose (mg/dL) 111 H 114 H (70-110) mg/dL 06/15/24 Range/Units 05:41 ABG pH (7.35-7.45) ABG pCO2 (35-45) mmHg ABG pO2 (83-108) mmHg ABG O2 Saturation (94-97) % POC Glucose (mg/dL) 113 H (70-110) mg/dL Microbiology - Last 24 Hours (Table) 06/11/24 22:29 Blood Culture - Preliminary Blood 06/11/24 07:00 Gram Stain - Final Sputum Sputum Culture - Final Tierra albicans Assessment and Plan Assessment: At home cardiac arrest with prolonged downtime possible acute myocardial infarction Acute hypoxic respiratory failure secondary to above Suspect anoxic brain injury Acute subarachnoid hemorrhage Elevated troponin secondary to above History of underlying pancreatic mass highly suggestive of pancreatic cancer, recently seen on CT of the abdomen pelvis History of underlying COPD Possible aspiration pneumonia Possible colitis as noted on CT of the abdomen pelvis History of deep vein thrombosis History of degenerative joint disease Plan: Continue ventilatory support Heparin discontinued Continue Zosyn Continue IV fluids Continue Vital at 30 ml/hr, goal is 68 Continue GI and DVT prophylaxis Surgery was also consulted because on presentation the patient had distended abdomen, recommend no surgical intervention Continue bronchodilators Overall prognosis extremely poor and guarded considering her prolonged downtime Patient is critically ill Time with Patient: Greater than 30
[2024-06-15 11:09] VITALS: RESP 18
[2024-06-15 11:44] VITALS: BMI 25.5
[2024-06-15 12:16] VITALS: TEMP 99
[2024-06-15] MEDS ORDERED: LORazepam 2 MG/ML INJ IV PRN (12:35)
[2024-06-15] MEDS ORDERED: ATROPINE OPHTH SOLN 1% 5ML BTL SUBLINGUAL PRN (12:35)
[2024-06-15] MEDS ORDERED: MORPHINE SULFATE 4 MG/ML SYRINGE IVP PRN (12:35)
[2024-06-15] MEDS ORDERED: MORPHINE SULFATE 2 MG/ML SYRINGE IVP PRN (12:35)
[2024-06-15] MEDS ORDERED: SCOPOLAMINE 1 MG/72 HR PATCH TRANSDERM SCH (12:45)
[2024-06-15] MEDS ORDERED: LORazepam 1 MG/0.5 ML VIAL IV PRN (12:48)
[2024-06-15] MEDS: MORPHINE SULFATE 100 MG in SODIUM CHLORIDE 0.9% 90 ML IV SCH (13:16)
--- NOTE | 2024-06-15 13:24 | P.PN ---
Subjective Progress Note Date: 06/15/24 I am following up with the patient and she is accompanied with her . Patient's condition continues to be about the same and there is no improvement in her condition. She continues to be off of IV sedation. Yesterday she had a CT of the head which showed some small subarachnoid hemorrhage and cerebral edema. Her IV heparin and aspirin was discontinued yesterday. She had a repeat CT of the head which is unchanged and no worsening of the bleeding. Today the is in agreement of withdrawing care. Objective - Vital Signs Vital signs: Vital Signs Temp 99.0 F 06/15/24 12:00 Pulse 84 06/15/24 12:00 Resp 18 06/15/24 12:00 BP 108/53 06/15/24 12:00 Pulse Ox 97 06/15/24 12:00 FiO2 35 06/15/24 12:23 Intake & Output 06/14/24 06/15/24 06/15/24 18:59 06:59 18:59 Intake Total 8130.376 5657 820 Output Total 65 65 5 Balance 3680.922 7203 815 Weight 71.8 kg 71.8 kg Intake: IV 1088 1014 530 Piperacillin-Tazobactam 3 200 100 .375 gm In Sodium Chloride 0.9% 100 ml @ 25 mls/hr IVPB Q8HR IRA Rx# :[id number] Sodium Chloride 0.9% 1, 825 975 375 000 ml @ 75 mls/hr IV . [id number] IRA Rx#:[id number] kvo 30 40 pressure bag 33 39 15 Intake, IV Titration 59.675 Amount Heparin Sod,Pork in 0.45% 59.675 NaCl 25,000 unit In 0.45 % NaCl 1 250ml.bag @ 12 UNITS/KG/HR 9.253 mls/hr IV .Q24H IRA Rx#: [id number] Tube Feeding 360 600 230 Other 120 90 60 Output: Urine 65 65 5 Other: Voiding Method Indwelling Catheter Indwelling Catheter Indwelling Catheter ABP, PAP, CO, CI - Last Documented Arterial Blood Pressure 116/48 - Exam General: Lying in bed and does not appear in acute distress. HENT: Supple neck. Neuro: Limited. IV Propofol has been stopped for slightly >48 hours. The patient is comatose. GCS 3 (E1, VT1, M1). I manually open the eyes and the primary gaze is midline. The pupils are 2 mm and reactive to light. Patient is breathing over the vent. Otherwise no other brainstem reflexes. No facial weakness. Motor: No spontaneous movement. Sensation patient does not withdraw to painful stimuli throughout extremities. Some of the workup during this hospital visit consisted of: Troponin is 3.47 Glucose is 182, AST is 132, ALT is 98 slightly elevated ammonia. I reviewed the rest of the lab workup CT of the head is reported as no acute intracranial hemorrhage or midline shift. There is diffuse age-related cerebral atrophy and chronic small vessel ischemic changes were noted. I personally reviewed the CT and I agree there is no acute or subacute ischemia. Routine EEG: Is limited because of significant myogenic artifact seen predominately over the bilateral temporal, left > right. With the limitations, the background appears moderate encephalopathy. There is no focal slowing, epileptiform discharge or seizure on the EEG. Repeat CT head yesterday: Findings raise the question of diffuse brain edema as described above. Interval development of acute subarachnoid hemorrhage in the posterior right parietal lobe. Stable remote left frontal infarct. Repeat CT of the head is reported as finding suggesting diffuse brain edema again. Unchanged acute subarachnoid hemorrhage within the posterior right parietal lobe. Stable remote left frontal lobe infarct. - Labs CBC & Chem 7: 06/14/24 04:51 06/14/24 04:51 Labs: Abnormal Lab Results - Last 24 Hours (Table) 06/14/24 06/15/24 06/15/24 Range/Units 17:49 05:30 05:41 ABG pH 7.13 L* (7.35-7.45) ABG pCO2 64 H (35-45) mmHg ABG pO2 72 L (83-108) mmHg ABG O2 Saturation 92.2 L (94-97) % POC Glucose (mg/dL) 114 H 113 H (70-110) mg/dL Microbiology - Last 24 Hours (Table) 06/11/24 22:29 Blood Culture - Preliminary Blood Assessment and Plan Assessment: This is a 73-year-old woman with recent diagnosis of pancreatic cancer this past Thursday and yesterday early in the afternoon patient became unresponsive at home and patient was pulseless electrical activity and had CPR for 20 minutes then coded again for 3 minutes. Prolonged cardiopulmonary arrest Likely anoxic brain injury due to above. On examination has few brainstem reflex (breathing over vent and pupil reflex). CT of the head shows diffuse cerebral edema as well as acute subarachnoid hemorrhage in the posterior right parietal lobe which is unchanged on the repeat CT from yesterday to today in the morning. Elevated troponin due to above Underlying pancreatic mass likely suggestive of pancreatic cancer Possible aspiration pneumonia History of DVT History of stroke in 2021 residual right hemiparesis History of COPD Plan: Dr. Parekh was called for abnormal movement and he was concerned about seizures so he placed her on Keppra 1000 mg every 12 hours with 5000 mg once. No further seizure reported. Patient has been off sedation now for 48 hours and no improvement in her condition and the would like to pursue with withdrawing of care. Will defer the rest of the medical management to primary and other specialist Overall prognosis is poor. The plan discussed with the patient's was at bedside and her nurse. Time with Patient: Less than 30
[2024-06-15 13:30] VITALS: BP 107/53; PULSE 75
--- NOTE | 2024-06-16 09:51 | P.DS ---
Providers Date of admission: 06/11/24 18:50 Expected date of discharge: 06/15/24 Attending physician: Khris Ortiz Consults: 06/11/24 18:48 Consult Physician Stat Consulting Provider: Juno Barnes Consult Reason/Comments: Critical care management Do you want consulting provider notified?: Yes Consult Physician Urgent Consulting Provider: [facility] Consult Reason/Comments: Cardiac arrest Do you want consulting provider notified?: Yes 06/11/24 21:52 Consult Physician Stat Consulting Provider: Juan Carlos Parekh Consult Reason/Comments: anoxic injury Do you want consulting provider notified?: Already Contacted Primary care physician: Adal Humphries [facility] Course: Preliminary cause of Anoxic brain injury secondary to prolonged cardiopulmonary arrest Final diagnosis Status post prolonged cardiopulmonary arrest secondary to possible acute myocardial infarction with prolonged CPR prior to hospitalization and 23-minute downtime Possible aspiration pneumonia, difficult to exclude Acute hypoxic respiratory failure, secondary to above Likely anoxic encephalopathy with brain injury and left myoclonic jerks Small acute subarachnoid hemorrhage noted in the posterior right parietal lobe, with no worsening per repeat CT Elevated lactic acid, likely secondary to prolonged CPR Troponin 3.470, acute non-STEMI Underlying pancreatic mass, likely suggestive of pancreatic cancer History of DVT COPD history History of CVA with right-sided weakness in 2021 GI prophylaxis DVT prophylaxis No code Discharge disposition Patient has . According to nursing documentation, time of was 1401 and 06/15/2024 with family present. Family had proceeded with comfort care and terminally weaned. Total time taken greater than 35 minutes Hospital course This is a 73-year-old female who was recently admitted status post prolonged cardiac arrest at home having acute respiratory failure and intubated en route to the hospital. Patient maintained on heparin with cardiology following with concerns of possible acute myocardial infarction with elevated troponins. Patient also with prolonged downtime with strong concerns for possible anoxic brain injury and neurology following scheduled undergo EEG today. Patient sedation was turned off and remains unresponsive not following commands and obtunded. Mechanical ventilation with an FiO2 of 35% and PEEP is 5. 06/14/2024 Patient is seen in follow-up today continues to be on mechanical ventilation off sedation and remains unresponsive. Patient is scheduled to undergo a repeat CT brain at this time with neurology following. Patient has been started on tube feedings and recommend aspiration precautions. Empiric antibiotics started as well and will continue. General surgery was evaluated as patient was distended on admission in the abdomen and patient is deemed not a surgical candidate with no plans of intervention at this time. Patient is continued on heparin as patient had elevated troponins. 06/15/2024 Patient continues in the ICU with multiple consultations following including neurology and pulmonary test preparation tutor maintained on mechanical ventilation. Patient has been maintained off sedation with no improvement in condition. Patient did have repeat CT yesterday which showed a small subarachnoid hemorrhage and cerebral edema at that time IV heparin was discontinued. Repeat CT is about the same from yesterday with no worsening. Patient family does not want any further interventions and is proceeding with comfort care. Please refer to other consultation notes for further HPI. Patient was made comfort and ultimately at 1402 on 06/15/2024 per nursing documentation. Overall poor prognosis. The impression and plan of care has been dictated by Kristi Mendoza, nurse practitioner as directed. Dr. Mariel MD I have performed a history and examination and MDM of this patient, discussed the same with the dictator, and agree with the dictator's assessment and plan as written ,documented as a scribe. Based on total visit time, I have performed more than 50% of the visit. Any additional findings or plans will be noted. Patient Condition at Discharge: Poor Plan - Discharge Summary New Discharge Prescriptions: No Action Atorvastatin [Lipitor] 40 mg PO HS #30 tab buPROPion HCL [buPROPion HCL Xl] 150 mg PO DAILY Clopidogrel [Plavix] 75 mg PO DAILY #21 tab Escitalopram [Lexapro] 20 mg PO DAILY Albuterol Inhaler [Ventolin Hfa Inhaler] 2 puff INHALATION RT-QID PRN PRN Reason: Shortness Of Breath Folic Acid 1 mg PO DAILY Fluticasone/Umeclidin/Vilanter [Trelegy Ellipta 100-62.5-25] 1 puff INHALATION RT-DAILY traMADol HCL 50 mg PO TID PRN PRN Reason: Pain Discharge Medication List Atorvastatin [Lipitor] 40 mg PO HS #30 tab 08/08/22 [Rx] Clopidogrel [Plavix] 75 mg PO DAILY #21 tab 08/08/22 [Rx] Escitalopram [Lexapro] 20 mg PO DAILY 10/02/23 [History] buPROPion HCL [buPROPion HCL Xl] 150 mg PO DAILY 10/02/23 [History] Albuterol Inhaler [Ventolin Hfa Inhaler] 2 puff INHALATION RT-QID PRN 06/06/24 [History] Fluticasone/Umeclidin/Vilanter [Trelegy Ellipta 100-62.5-25] 1 puff INHALATION RT-DAILY 06/06/24 [History] Folic Acid 1 mg PO DAILY 06/06/24 [History] traMADol HCL 50 mg PO TID PRN 06/11/24 [History] Discharge Disposition: - Preliminary Cause of Preliminary Cause of : Anoxic brain injury secondary to prolonged cardiopulmonary arrest
== END 2024-06-15 15:50 | disposition expired ==
LOC: EC 15:21 → 2SICU 18:50
PROVIDERS: ADMIT Hospitalist; ATTEND Hospitalist
PROC: 5A1945Z Respiratory Ventilation, 24-96 Consecutive Hours (ICD-10-PCS; principal; 2024-06-11)
PROC: 4A133B1 Monitoring of Arterial Pressure, Peripheral, Percutaneous Approach (ICD-10-PCS; 2024-06-12)
PROC: 4A133J1 Monitoring of Arterial Pulse, Peripheral, Percutaneous Approach (ICD-10-PCS; 2024-06-12)
PROC: 03HY32Z Insertion of Monitoring Device into Upper Artery, Percutaneous Approach (ICD-10-PCS; 2024-06-12)
PROC: 4A10X4Z Monitoring of Central Nervous Electrical Activity, External Approach (ICD-10-PCS; 2024-06-13)
DX: I21.4 Non-ST elevation (NSTEMI) myocardial infarction (principal); G93.6 Cerebral edema; J69.0 Pneumonitis due to inhalation of food and vomit; J96.01 Acute respiratory failure with hypoxia; I60.9 Nontraumatic subarachnoid hemorrhage, unspecified; G93.1 Anoxic brain damage, not elsewhere classified; I46.9 Cardiac arrest, cause unspecified; C25.9 Malignant neoplasm of pancreas, unspecified; I69.351 Hemiplegia and hemiparesis following cerebral infarction affecting right dominant side; J44.9 Chronic obstructive pulmonary disease, unspecified; I10 Essential (primary) hypertension; E87.20 Acidosis, unspecified; I25.2 Old myocardial infarction; R15.9 Full incontinence of feces; Z66 Do not resuscitate; Z51.5 Encounter for palliative care; G25.3 Myoclonus; K52.9 Noninfective gastroenteritis and colitis, unspecified; M19.90 Unspecified osteoarthritis, unspecified site; Z86.718 Personal history of other venous thrombosis and embolism; Z79.02 Long term (current) use of antithrombotics/antiplatelets; Z79.899 Other long term (current) drug therapy; Z85.07 Personal history of malignant neoplasm of pancreas; Z87.891 Personal history of nicotine dependence
CPT/HCPCS: 36415; 36600; 70450; 71045; 71275; 74176; 80048; 80053; 82140; 82805; 83605; 83735; 84132; 84145; 84484; 85025; 85027; 85610; 85730; 87040; 87070; 87205; 93005; 93306; 94002; 94003; 95822; 96361; 96365; 96366; 96375; 99291